=== PATIENT | male | born 1955 | race Caucasian/White ===

== ENCOUNTER → 2024-01-18 14:34 | Outpatient (BNVA) | payer MEDICARE, SELFPAY | PROVIDERS: PCP Nurse Practitioner Family; Referring Provider Nurse Practitioner Family; Visit Provider Student in an Organized Health Care Education/Training Program | DX: T84.54XA Infection and inflammatory reaction due to internal left knee prosthesis, initial encounter (principal) | CPT/HCPCS: 20610; 99203 ==

== ENCOUNTER 2024-01-18 15:21 | Outpatient (REF) | payer MEDICARE, SELFPAY ==
[2024-01-18 18:27] LABS: Clarity Cloudy; Source Synovial
[2024-01-18 18:28] LABS: Mononuclear Cells 15 %; Polynuclear Cells 85 %
== END 2024-01-18 15:22 | disposition home or self-care (01) ==
LOC: LBN 15:21
PROVIDERS: PCP Nurse Practitioner Family; Visit Provider Student in an Organized Health Care Education/Training Program
DX: T84.54XA Infection and inflammatory reaction due to internal left knee prosthesis, initial encounter (principal); Z96.652 Presence of left artificial knee joint; X58.XXXA Exposure to other specified factors, initial encounter
CPT/HCPCS: 87070; 87205; 89051

== ENCOUNTER → 2024-01-19 07:59 | Outpatient (BNVA) | payer MEDICARE, SELFPAY | PROVIDERS: PCP Nurse Practitioner Family; Referring Provider Nurse Practitioner Family; Visit Provider Student in an Organized Health Care Education/Training Program ==

== ENCOUNTER 2024-01-19 10:22 | Inpatient (IN) | payer MEDICARE, SELFPAY ==
[2024-01-19] VITALS (17 sets, daily range): BP systolic 114–184; BP diastolic 50–90; PULSE 63–87; RESP 15–20; TEMP 35.8–36.6; O2SAT 94–100; BMI 28.8
[2024-01-19] MEDS: Acetaminophen 500 MG TAB 1000 MG PO ×2 (10:48→21:09)
[2024-01-19] MEDS: Gabapentin 300 MG CAP PO ×2 (10:48→21:11)
[2024-01-19] MEDS: Celecoxib 200 MG CAP 400 MG PO (10:48)
[2024-01-19] MEDS: Lactated Ringers 1,000 ML 80 ML IV ×2 (10:58→18:20)
--- NOTE | 2024-01-19 11:23 | ANES.PREOP_ITS ---
General Info Date of Service Date Performed: 01/19/24 Height: 6 ft Weight: 96.5 kg Body Mass Index (BMI): 28.8 Surgical Procedure: Operation Date: 01/19/24 15:40 Proposed Procedure Side Surgeon p Total Knee hardware removal, spacer placement Left Js Michel MD Meds Allergies and Home Medications Allergies Allergy/AdvReac Type Severity Reaction Status Date / Time No Known Allergies Allergy Verified 01/19/24 10:43 Home Medication Medication Instructions Recorded Acetaminophen 650 mg RC PRN 11/21/12 ibuprofen 800 mg tablet 800 mg PO PRN 11/21/12 omeprazole magnesium 20 mg 20 mg PO DAILY 11/21/12 tablet,delayed release (Prilosec OTC) glucosamine sulfate 2KCl 1,000 mg 1,000 mg PO TID ##1 09/29/13 tablet Current Visit Medications: Current Medications Generic Name Dose Route Start Last Admin Trade Name Freq PRN Reason Stop Dose Admin Acetaminophen 1,000 mg 01/19/24 10:00 01/19/24 10:48 Acetaminophen 500 Mg Tab PO 01/19/24 16:00 1,000 mg PREOP JOSEPH Administration Celecoxib 400 mg 01/19/24 10:00 01/19/24 10:48 Celecoxib 200 Mg Cap PO 01/19/24 16:00 400 mg PREOP JOSEPH Administration Gabapentin 300 mg 01/19/24 10:00 01/19/24 10:48 Gabapentin 300 Mg Cap PO 01/19/24 16:00 300 mg PREOP JOSEPH Administration Ringer's Solution 1,000 mls @ 80 mls/hr 01/19/24 06:00 01/19/24 10:58 IV 02/18/24 23:59 80 mls/hr INFUSION JOSEPH Administration Cefazolin Sodium/Dextrose 2 gm in 50 mls @ 100 mls/hr 01/19/24 10:00 Ancef Duplex IVPB 01/19/24 16:00 PREOP JOSEPH Tranexamic Acid/Sodium Chloride 1,000 mg in 100 mls @ 600 mls/hr 01/19/24 10:00 IVPB 01/19/24 16:00 PREOP JOSEPH Tranexamic Acid/Sodium Chloride 1,000 mg in 100 mls @ 600 mls/hr 01/19/24 10:00 IVPB 01/19/24 16:00 TODAY JOSEPH IV Miscellaneous Supplies 1 each 01/19/24 06:00 Iv Access IV 02/18/24 23:59 DIRECTED [facility] Sodium Chloride 0 ml 01/19/24 06:00 Normal Saline Flush 10 Ml Syr IV 02/18/24 23:59 PRN PRN Sodium Chloride 0 ml 01/19/24 06:00 Normal Saline 10 Ml Vial 02/18/24 23:59 DIRECTED PRN Sterile Water 0 ml 01/19/24 06:00 Water,Injection,Sterile 10 Ml Vial 02/18/24 23:59 DIRECTED PRN Tobramycin Sulfate 7.2 gm 01/19/24 10:00 Tobramycin 1.2 Gm Vial 01/19/24 23:59 TODAY [facility] Vancomycin HCl 8,000 mg 01/19/24 10:00 Vancomycin 1000 Mg Vial 01/19/24 23:59 TODAY [facility] PFSH Active Problems Active Problems: Problem Status Onset Code 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 Alcoholic hepatitis K70.10 Medical History Medical History Neuropathy BPH (benign prostatic hyperplasia) Anemia Alcohol abuse Actinic keratosis Gastroesophageal reflux disease Surgical History Surgical History History of arthroscopic knee surgery History of carpal tunnel release History of prostate surgery Replacement of total knee joint (09/19/12) LEFT SIDE Tobacco Smoking/Tobacco Use Status: Former Tobacco Use Alcohol Alcohol Intake: current Alcohol intake frequency: 0-2 drinks per day Alcohol typ e: hard liquor Substance Use Substance use: Never Substance use type: does not use Details: Last ETOH 01/17 3-4 shots hard liquor Vital Signs and Lab Results Vital Signs Most Recent Vital Signs in EMR: Most Recent Vital Signs Temp Pulse Resp BP Pulse Ox 35.8 C L 87 16 135/69 97 01/19/24 10:29 01/19/24 10:29 01/19/24 10:29 01/19/24 11:03 01/19/24 10:29 Lab Results Blood Type / Crossmatch: No Data to Display Complete Blood Count: No Data to Display Complete Metabolic Panel: No Data to Display Liver Function Panel: No Data to Display Coagulation Panel: No Data to Display Cardiac Panel: No Data to Display Arterial Blood Gas: No Data to Display Venous Blood Gas: No Data to Display Pancreas Panel: No Data to Display Thyroid Panel: No Data to Display Infectious Disease: No Data to Display Blood Cultures: No Data to Display Toxicology Panel: No Data to Display Anesthesia Assessment and Plan Anesthesia History Personal History: No History of Anesthesia Complications Family History: No Family History of Anesthesia Complications Exercise Tolerance Exercise Tolerance: Metabolic Equivalents>4 Pertinent Negatives Pertinent Negatives: No Major Cardiovascular Symptoms or Complaints, No Major Pulmonary Symptoms or Complaints and No History of CVA/TIA Cardiac & Pulmonary Exam Cardiac Exam: Normal S1/S2 Heart Sounds Pulmonary Exam: Clear Bilateral Breath Sounds Implantable Cardiac Device Does patient have a Pacemaker or an ICD?: No Airway Exam Known Difficult Airway: No Mallampati Class: 2 Mouth Opening: Normal (> 3cm) Thyromental Distance: Greater than 3 cm Neck Range of Motion: Full ROM Neck Circumference: Normal Teeth Condition: Normal Dentition ASA Classification ASA Score: ASA 2 Emergency Case?: No NPO Status NPO Status: NPO Clears >2 hours, Solids >8 hours Anesthesia Plan Resuscitation Status: Full Code Anesthesia Technique: Spinal Anesthesia Airway Planned: Natural Airway Pain Management: Surgeon and patient request nerve block Monitors Used: Standard Monitors
--- NOTE | 2024-01-19 12:10 | W.ANESNERVE ---
Nerve Block Single Injection Procedure Date and Time Date Performed: 01/19/24 Procedure Start: 12:04 Location Where Procedure Performed Procedure Location: Day Surgery Unit Reason Performed: Postoperative Analgesia Requesting Provider: Js Michel Timeout Performed Timeout Performed: Yes Monitoring Used ECG, Blood Pressure, SpO2 and See EMR for corresponding vital signs Sterility Sterility: Hand Hygiene, Surgical Cap, Surgical Mask, Sterile Gloves, Sterile Drape/Sheet and Chlorhexidine Sedation Given During Procedure Sedation Given (Indicate Dose Given): Versed IV Dose:: 2 mg Patient Mental Status Patient Mental Status: Sedate with meaningful communication Nerve Block 1st Nerve Block: Laterality: Left Block Type: Adductor Canal Ultrasound Image Saved?: Yes Needle / Catheter Used: 100mm SonoPlex II Local Anesthetic Bolus (Indicate Dose Given): Lidocaine used for local infiltration of skin, Injected in 3-5ml increments after negative blood aspiration and Bupivacaine 0.25% Dose:: 15 ml Additives (Indicate Dose Given): None Ultrasound: Sterile probe cover and gel used Nerve Stimulator: Supplement to Ultrasound use and No twitch or parasthesia noted < 0.5 mA Paresthesia: None Procedure Tolerated: No Complications and Patient tolerated well Procedure Outcome: Successful Performed By: Tierra Galvez
[2024-01-19] MEDS: ceFAZolin 2 GM/50 ML BAG IVPB ×2 (14:08→23:26)
[2024-01-19] MEDS: TRANEXAMIC ACID/SOD. CHL. 1,000 MG/100 ML BAG 600 MG IVPB ×2 (14:28→16:12)
--- NOTE | 2024-01-19 16:30 | DI.RAD_ITS ---
Exam(s) XR KNEE LT 2V AP,LAT EXAM: XR KNEE LT 2V AP,LAT CLINICAL HISTORY: s/p TKA expalnt and spacer placement. TECHNIQUE: 2D digital imaging was performed of the left knee. Five images were obtained. AP, obliq ue and lateralAP, lateral and PA tunnel views were obtained. COMPARISON: CR XR KNEE COMPLETE MIN 4V LT from 01/18/2024 FINDINGS: BONES: No acute fracture is present. No bony destructive lesion is seen. JOINTS: There has been interval replacement of the tibial component of the left total knee replacemen t with a radiolucent spacer. There is also been placement of fully threaded screws in the distal fem ur and proximal tibia. No joint effusion is seen. No loose body. SOFT TISSUE: Postsurgical changes are seen in the soft tissues. Skin ceferino are present. IMPRESSION: Interval total knee revision. DATA REPOSITORY: RADIATION DOSE DELIVERED:
--- NOTE | 2024-01-19 16:49 | ROE_ITS ---
Date of service: 01/19/24 Time of Service: 14:30 Operative Note Operative Note DATE OF PROCEDURE: 01/19/24 PRE-OP DIAGNOSIS: Infected Left Total Knee Arthroplasty Patella Button Dissociation Arthrotomy rupture POST-OP DIAGNOSIS: same PROCEDURE: Explantation of Knee Arthroplasty - LEFT Irrigation and Debridement and Complete Synovectomy Placement of Low-Friction Antibiotic Spacer Application of Chavez Vacuum-Assisted Dressing SURGEON: Js Michel GLASS CURVATURE GAUGER: Chuck Donnelly ANESTHESIA TYPE: Spinal Refer to Anesthesia Record ESTIMATED BLOOD LOSS: 300 PATHOLOGY: none sent TOURNIQUET TIME: 0 Patient was transported to: PACU Patient's condition: stable Implants: Depuy Attune Size 7 CR Femoral Component Depuy Attune Size 7x14mm CR/RP Polyethylene Indications: Dwight is a 68-year-old who presented to the [facility] emergency department for acute on chronic left knee pain. He was diagnosed with dissociation of the patellar button along with a large effusion and elevated inflammatory markers. I saw him in the office the same day and aspirated gross purulence from the knee. Given these findings I recommend proceeding urgently to the operating room for explantation of the components and placement of antibiotic spacer. I reviewed the technical details. Discussed the nature of this treatment and the necessary time for antibiotic treatment. I also reviewed the risk to include bleeding, continued infection, need for repeat procedures, damage to soft tissues, wound healing difficulties, blood clot. Despite these risk, he elected to proceed. Findings: There was gross purulence throughout the knee. The cement was completely debonded from the metal implants. The patellar button was loose. There is an erosion in the distal aspect the quadricep from the loose patellar button. There is dense synovitis throughout. Procedure Description: Dwight was greeted in the preoperative holding area where the correct side was identified and marked. The consent was reviewed with the patient and signed. The history and physical was updated. All questions were answered. Preoperative mediacations were administered: Acetaminophen 1000mg, Celebrex 40 0mg, and Gabapentin 300mg. Dwight was taken back to the operating room. A spinal anesthestic was administered. The patient was placed into the supine position on the operating room table. Posts were placed for positioning during the procedure. All bony prominences were well padded. Prophylactic antibiotics in the form of Cefazolin were administered. The left leg was then prepped with Chloraprep and draped in a standard fashion with impervious stockinette. A second prep with Chloraprep was performed prior to application of Iodine impregnated skin protection. A timeout to confirm correct identity, side and site, procedure, allergies, anesthesia, and medical concerns was performed. With the knee in some flexion, a midline incision was made overlying the knee utilizing the previous incision. Full thickness skin flaps were raised once the extensor mechanism was encountered. These were raised medially and laterally. There is an obvious defect of the quadriceps repair in the arthrotomy with a de of purulent material. There is significant adhesions between the extensor apparatus and the overlying soft tissue. These planes were developed. Any bleeding was controlled with electrocautery. Medial and lateral skin flaps were raised to fully evaluate the extensor mechanism. The defect was quite obvious. It ended about the midportion of patella with maybe some slight diastases at that level but by the inferior portion of the patella there was no defect. The proximal extent went through the quadriceps split about alf. The patellar button was dissociated from the ce ment and was sitting in a superior medial position and actually had eroded into the undersurface of the distal quadriceps. Distal quadriceps was still attached to the patella patella was in a lateral base position. An aggressive complete synovectomy was then performed utilizing 2 Allis 2 Reginald clamps. This was taken from the superior portions of the wound through the medial and lateral gutters, working anteriorly as well. Rongeur was also utilized to assist with the far reaches of the synovectomy. The interface between the bone, cement, and metal was identified. The medial soft tissues over the tibia were elevated. The knee was brought into flexion and it was immediately evident that the femur was loose. I used a large osteotome to cut the post of the polyethylene and remove the polyethylene. An evaluation of the femur, there is fluid noted to be moving between the implant and the cement. Utilizing a bone tamp I was able to tap the femur out of place. As for the tibia, there seem to be some motion. However, it was not grossly loose as the femur. I utilized an oscillating saw to separate the cement from the implant. There is minimal resistance. Once this was completed I then used an osteotome and a mallet to remove the tibial implant. No cement was adherent to the implant itself. Utilizing a small straight osteotome I created small cruciate steen within the cement to freed up from the underlying bone. The cement was removed. The distal aspect of the cement was penetrated with the osteotome and was removed in pieces so I had access to the canal. All the cement was removed from the surface of the tibia. There is a significant of reactive bone of the tibia which was also rongeured and playing with the distal tibia. Synovium from the posterior aspect of the knee was removed. The cement was removed from the surface of the distal femur as well. There is noted to be no significant bone loss on the femur. However, there was a cavity seen over the lateral aspect of the tibial plateau. All contents was cavity were debrided. I then reamed the canals up to 14 mm. Cultures were taken from the canals. On the back table, antibiotic dowels for the canals was prepared. This was done utilizing 1 batch of medium discuss the cement along with 2 g of vancomycin and 2.4 g of tobramycin. A small amount of methylene blue was also added. This was mixed on the back table without backing pressurization. It was rolled into appropriately sized dowels based on the reaming process over a Steinmann pin. While this was being prepared, an aggressive debridement is performed of all the bony surfaces. I make sure had complete evaluation of the entire bony surface. Any soft tissue adjacent to the bone was removed. This was done posteriorly as well. I trialed a size 7 femur with a 7 x 14 polyethylene. This provided appropriate stability and fit. These 2 implants were then open. This would be the primary component of the low friction spacer. After the debridement was performed and the canals were thoroughly irrigated and dried the knee was brought back into extension where I then treated it with Betadine solution for at least 3 minutes. During this time I injected the deep tissues with a mixture of ropivacaine, epinephrine, clonidine and ketorolac. After 3 minutes I irrigated the knee with saline and brought the knee back into flexion where I completed the periarticular injection posteriorly. Cement was then opened on the back table. Once again utilizing 2 g of vancomycin and 2.4 g of tobramycin per batch of cement, 2 batches the knee discussed the cement were prepared on the back table. These were mixed by hand without vacuum assistance. The dowels were placed into the canals. Cement was then placed onto the surface of the tibia and the rotating platform tibial component was placed onto the surface of the tibia. This was manually pushed onto the surface and excess cement was removed. The knee was kept in some flexion and cement was placed on the cut surface of the femur. The femoral component was inserted in position. The knee was then brought into extension to allow the cement to cure. Excess cement was removed. The knee was once again irrigated with Betadine solution followed by saline. Once the cement cured the extensor mechanism was closed with #2 FiberWire in an interrupted fashion. Given there is some diastases of this wound I did close the previously torn portion with a pants over vest technique in order to get tendinous material next tendinous material and utilize the false tendon to help reinforce the repair. The superficial tissues were once again irrigated with saline. The deep tissues were closed with an antibacterial 0 and 2-0 Vicryl. The skin was closed with ceferino. A chavez vacuum-assisted dressing was then applied to assist with wound healing. A CryoCuff was applied. Dwight was transferred to the hospital bed without difficulty and suffering no apparent complication. wDight has a gaurded prognosis. Aspirin 81mg BID will be used for DVT prophylaxis. He will be placed on vancomycin and cefazolin for empiric treatment of his infection as we await final cultures.
[2024-01-19 18:43] LABS: BUN 16 mg/dL (7-18); CREATININE 0.7 mg/dL (0.70-1.30); Estimated GFR 100.99 (mL/min/1.73m2)
--- NOTE | 2024-01-19 21:05 | DI.VRAD_ITS ---
PROCEDURE INFORMATION: Exam: XR Left Knee Exam date and time: 01/19/2024 8:17 PM Age: 68 years old Clinical indication: Other: S/P tka expalnt and spacer placement TECHNIQUE: Imaging protocol: Radiologic exam of the left knee. Views: 1 or 2 views. COMPARISON: CR XR KNEE COMPLETE MIN 4V LT 01/18/2024 8:32 AM FINDINGS: Tubes, catheters and devices: Surgical changes of left total knee arthroplasty, with fully threaded retention screws within the proximal tibia and femur and new radiolucent proximal tibial spacer. Bones/joints: No acute fracture or dislocation. Soft tissues: Anterior skin ceferino. IMPRESSION: No acute fracture or dislocation. Dictated and Authenticated by: Guido Ulrich MD. Ordering:ALYCE Weinstein MD
[2024-01-19] MEDS: VANCOMYCIN 1,500 MG in Normal Saline 250 ML 166.667 MG IVPB (21:12)
[2024-01-19] MEDS: Normal Saline Flush 10 ML SYR IV (21:17)
[2024-01-20 00:13] VITALS: BP 129/64; PULSE 74; RESP 20; TEMP 36.6; O2SAT 99
[2024-01-20 03:56] VITALS: BP 154/77; PULSE 74; RESP 20; TEMP 36.4; O2SAT 97
[2024-01-20 07:22] LABS: HCT 32.8 % (40.0-50.0); HGB 10.6 g/dL (13.5-17.5); MCH 31.8 pg (27.0-33.0); MCHC 32.3 % (32.0-36.0); MCV 99 fL (80-95); MPV 9.5 fL (8.0-11.0); Platelet Count 239 10^3/uL (130-400); RBC 3.33 10^6/uL (4.36-5.78); RDW 12.9 % (11.8-14.1); RDW-SD 46.7 fL; WBC 6.89 10^3/uL (4.4-10.8)
[2024-01-20 07:34] LABS: Anion Gap 5.7 mmol/L (3-11); BUN 22 mg/dL (7-18); C-Reactive Protein 6.71 mg/dL (<or=0.5); CO2 28.3 mmol/L (21.0-32.0); CREATININE 0.8 mg/dL (0.70-1.30); Chloride 105 mmol/L (98-107); Glucose 156 mg/dL (74-106); Potassium 4.1 mmol/L (3.5-5.1); Sodium 139 mmol/L (136-145)
[2024-01-20 08:00] VITALS: BP 160/99; PULSE 78; RESP 16; TEMP 37.1; O2SAT 98
[2024-01-20] MEDS: Acetaminophen 500 MG TAB 1000 MG PO ×3 (08:24→21:08)
[2024-01-20] MEDS: ceFAZolin 2 GM/50 ML BAG IVPB ×2 (08:24→16:04)
[2024-01-20] MEDS: Pantoprazole 40 MG TABCR PO (08:24)
[2024-01-20] MEDS: Aspirin E.C. 81 MG TABEC PO ×2 (08:24→21:08)
--- NOTE | 2024-01-20 08:29 | W.ANESPOSTOP ---
Postoperative Evaluation Date, Time and Location Date Performed: 01/20/24 Time Performed: 08:29 Patient Location: Med/Surg Vital Signs Most Recent Imported Vital Signs: Most Recent Vital Signs Temp Pulse Resp BP Pulse Ox 37.1 C 78 16 160/99 H 98 01/20/24 08:00 01/20/24 08:00 01/20/24 08:00 01/20/24 08:00 01/20/24 08:00 Pain Score Most Recent Pain Score: Most Recent Pain Score Pain Level 3 01/20/24 08:00 Assessment Mental Status: Awake (Alert & Oriented to Patient Baseline) Airway and Respiratory Function: Patent airway with normal (patient baseline) respiratory exam Cardiovascular Function: Hemodynamically Stable Hydration Status: Adequately Hydrated Nausea & Vomiting: No Nausea or Vomiting Pain: Pt. Denies Any Pain Peripheral Nerve Block: Regional nerve block not resolved at time of post operative discharge
[2024-01-20] MEDS: oxyCODONE 5 MG TAB PO ×2 (08:31→14:04)
--- NOTE | 2024-01-20 09:03 | INITIAL_ITS ---
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 He has 2 sons and 3 grandchildren and many other local family members and friends. He drives and is fully independent with his ADL's/IADL's at baseline. Town of Residence: [place] Resides with: Spouse Significant Other/Family: Local Natural Supports: Minh Potter Employment Status: Employed Instrumental Activities of Daily Living (ADLs): Independent Medications Medication Management: No Issues/Barriers identified Physical Functioning/Mobility Assistive Device: None Advance Directives Advance Directives: Do you have an Advance Directive: N 01/19/24 11:23 AD On File at [facility]: N 09/29/13 09:44 Date Asked 01/19/24 01/19/24 11:23 AD Date Reviewed COLST On File at [facility] COLST Date Scanned Code Status Resuscitation Status Full Code Portal Pt does not currently have a portal and education provided: No Insurance Coverage/Financial Issues Insurance: Medicare ACO Member: No Financial Issues: none identified Care Team Visit Care Team Role Provider Type Dominga Silver Primary Care Provider NURSE PRACTITIONER InPatient Anmol Hahn Other Providers OTHER Js Michel MD Admit Provider [facility] STAFF PHYSICIAN Attending Provider Discharge Potential Discharge Needs: Other (Home IV ABX, awaiting results ) Anticipated Barriers to Discharge: None Identified Patient/Family Education Needs: Review discharge instructions, discuss Ask Me Three Transportation: Private vehicle Plan: Mitchell will discharge home via private vehicle with family with a plan for outpatient follow up when medically ready. Cultures are pending, LT IV ABX with new [facility] services is anticipated, course is unclear at this time. CM will continue to follow. PFSH All Active Problems Infection of prosthetic left knee joint (Acute) Alcoholic hepatitis (Acute) Medical History Neuropathy BPH (benign prostatic hyperplasia) Anemia Alcohol abuse Actinic keratosis Gastroesophageal reflux disease Surgical History History of arthroscopic knee surgery History of carpal tunnel release History of prostate surgery Replacement of total knee joint (09/19/12) LEFT SIDE Social History Smoking/Tobacco Use Status: Former Tobacco Use Quit Date: 08/23/03 Smoking risk assessment performed?: Yes Alcohol Intake: current Alcohol Intake frequency: 0-2 drinks per day Alcohol type: hard liquor Drug use: Never Substance use type: does not use Details: Last ETOH 01/17 3-4 shots hard liquor Housing: house Do you feel safe at home: Yes Do you feel safe in your relationship?: Yes SDOH(Care Management) Screening Will the Patient Participate in the Screening?: Yes Do you worry about having a steady place to live?: no Problems where you live: no known problems In the past 12 months, have you had to go without electric, gas, oil or water in your home?: no Have you or anyone in your house had to go without enough food to eat?: no Has lack of transportation kept you from medical appointments or from doing things needed for daily living?: no Has anyone in your support network made you feel unsafe for any reason?: no
--- NOTE | 2024-01-20 09:54 | PT.INIE ---
PT Notes Visit Reasons: Total knee infection Physical Therapy Inpatient Initial Evaluation Date: 01/20/2024 Referring Doctor: Js Michel MD PT Orders: PT CONSULT: S/P Ortho Surgery Precautions: Fall. Standard. WBAT on L LE. Patient Profile/Admitting Diagnosis: Mitchell is a 68-year-old male with diagnosis of total knee arthroplasty joint infection, patellar button dissociation, and arthrotomy rupture. He is status post explantation of left BKA prosthesis, placement of low fraction antibiotic spacer, and application of chavez vacuum assisted dressing on postoperative day 1. PMHX: All Active Problems (Updated 01/18/24 @ 15:45 by Js Michel MD) Infection of prosthetic left knee joint (Acute) Alcoholic hepatitis (Acute) Medical History Neuropathy BPH (benign prostatic hyperplasia) Anemia Alcohol abuse Actinic keratosis Gastroesophageal reflux disease Surgical History History of arthroscopic knee surgery History of carpal tunnel release History of prostate surgery Replacement of total knee joint (09/19/12) LEFT SIDE Social History/Home Situation: Lives with in a private home with 4-5 steps to enter. 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 Equipment Owned/DME: FWW, bilateral axillary cruthces, SPC Subjective: Reported 5/10 pain in L knee. Added that Nurse Salma has already been in to give him his pain medication. Agreeable to getting out of bed and tryng out knee immobilizer. Objective: General Observation: Resting in bed. Julio wraps to left LE. Cryocuff to left knee. TEDS to R leg/foot. Mental Status: Alert and oriented as to person, place, time, and purpose. Able to pay attention, focus, and respond appropriately. Pain: 5/10 in the L knee Vital Signs: Closely monitored by nursing staff ROM: Right Lower Extremity: Hip flexion WFL. Hip abduction WFL. Knee flexion WFL. Ankle dorsiflexion WFL. Ankle plantarflexion WFL. Left Lower Extremity: Hip flexion allows 90 degrees. Hip abduction WFL. Knee flexion NT, patient on knee imoobilizer. Knee extension about -20 degrees in standing. Ankle dorsiflexion WFL. Ankle plantarflexion WFL. Strength: Right Lower Extremity: Hip flexors 4/5. Hip abductors 4/5. Knee flexors 4/5. Knee extensors 4/5. Ankle dorsiflexors 4/5. Ankle plantarflexors 4/5. Left Lower Extremity: Hip flexors 3-/5. Hip abductors 4-/5. Knee flexors 3-/5. Knee extensors 3-/5. Ankle dorsiflexors 4/5. Ankle plantarflexors 4/5. Bed Mobility/Transfers: Minimal cueing provided for use of B hands as needed for support, movement sequence, AD management, and posture to reduce fall risk and minimize pain report Supine to sit minimal assist to left LE Sit to stand contact-guard assist using FWW Stand to sit contact-guard assist using FWW Bed to reclining chair contact-guard assist using FWW Gait: Facilitated safe and correct performance of level surface ambulation covering a distance 100 feet using front wheeled walker with step to gait pattern requiring contact-guard assist and wheelchair follow from PT for safety. Step-to gait pattern, Decreased terminal knee extension during L midstance but no LOB nor report of increased pain. Knee immobilizer provided a sense of security for patient. Balance: Static Sitting: Normal Dynamic Sitting: Good Static Standing: Fair Dynamic Standing: Fair Special Tests: Mobility Limitations Standardized Measure [facility] AM-PAC 6 clicks Basic Mobility Inpatient Short Form: Raw Score: 19 CMS Score: 42% deficit Informed Consent/Education: Patient was instructed in purpose of PT consult and plan of care. Agreeable to proceed with established PT POC to achieve personal goals. Assessment: Required assistance with moving L LE onto edge of bed for supine to to sit. [place] more secure with knee immobilizer on. Unable to fully extend knee during midstance on L. requires the use of FWW for all mobility ADL performance to maximize indepdence and reduce fall risk. Patient presents with clinical signs and symptoms consistent with current/admitting diagnoses that have resulted to mobility limitations, gait instability, generalized weakness, and overall ADL decline as demonstrated by the following impairment level findings: 1. Decreased strength to L hip and knee major muscle groups 2. Impaired sitting/standing balance 3. Impaired activity tolerance 4. Limitation of joint range of motion in extension/flexion Impairments are contributing to the following functional limitations: 1. Decline in bed mobility skills 2. Decline in transfer skills 3. Difficulty with ambulation without assistive device and physical assistance 4. Increased completion time for mobility ADL performance 5. Increased risk for falls 6. Difficulty with managing steps alone safely Patient is assessed as a 46538 moderate complexity based on the following: History: 68-year-old malw with past medical history as indicated above Examination: Demonstrable impairment in strength, balance, and mobility level with underlying impairments and functional limitations as exhibited above as well as deficit score of 42% utilizing the [facility] Mobility Inpatient Short Form Presentation: Evolving Decision Makin moderate complexity Goals: Goals X1 week 1. Supine-Sit independent 2. Sit-Supine independent 3. Sit-Stand independent 4. Stand-Sit independent with FWW 5. Bed-Chair independent with FWW 6. Chair-Bed independent with FWW 7. Independent gait on level surface with use of FWW for at least 150 feet without report of pain nor dyspnea 8. Independent stair negotiation while holding onto B rails for at least 5 steps without report of pain nor dyspnea 9. Independent with home exercise program 10. Good static and dynamic standing balance/tolerance Plan of Care/Treatment Plan: 1-2x/day, 7 days/week x 1 week. Plan of care has been reviewed with the TUBE BENDING MACHINE OPERATOR providing the service under Physical Therapy direction. Initiate Physical Therapy intervention for pain management as needed, strengthening, bed mobility, transfers, gait, stairs, balance training, and use of assistive device. --Educate and train on HEP, train for stairs, and work on increasing safety of ambulation using FWW and knee immobilizer to L. DISCHARGE RECOMMENDATIONS: [] Home with no services [] [] Home with services [specify] [X home when medically cleared by orthopedic surgeon. Recommend outpatient PT services in order to optimize functional mobility outcomes and facilitate return to independent community ambulation without an assistive device. [] Home with outpatient PT. [] SNF for continued rehabilitation [] [] [facility] [] [] SNF versus LTC based on ability to participate and progress [] TREATMENT CODE/TIME: 9716 2 x 20 minutes for 1 unit, 9753 0 x 18 minutes for 1 unit (9:13?9: 51). Thank you for the opportunity to participate in the care of this patient. Amber Payne PT, DPT, CLT [facility] [place], [place]
[2024-01-20] MEDS: VANCOMYCIN/WATER (PEG) 1.5 GM/300 ML BAG IVPB (09:59)
[2024-01-20 10:11] LABS: Vancomycin, Random 9.1 ug/mL
[2024-01-20 11:25] VITALS: BP 166/90; PULSE 80; RESP 16; TEMP 37; O2SAT 98
[2024-01-20] MEDS: diazePAM 5 MG TAB PO (12:58)
[2024-01-20 13:00] LABS: Lab Add On Test DONE
[2024-01-20 13:21] LABS: Hemoglobin A1C 5.5 % (<5.7)
--- NOTE | 2024-01-20 14:02 | CHAPLAIN ---
Mitchell was sitting up in the chair, with his leg, talking with his visitor. He said he's frustrated that his knee is infected, after 11 years, and he needs to be out haying. He was talking about how he can't figure out how he got an infection, he hasn't even had anything worth putting a Bandaid on, but Dr. Michel had explained to him that it could be very minor scratch or sore that let the infection in.
--- NOTE | 2024-01-20 15:32 | PT.INTREAT ---
PT Notes Visit Reasons: Total knee infection Date: 01/20/24 PRECAUTIONS: Fall. Standard. WBAT on L LE. SUBJECTIVE: Pt in recliner when approached for therapy this afternoon, pt reports he has not been medicated yet so he is not sure if he could tolerate gait training, pt nurse Salma informed about pt pain meds and reports that the pt just recently had Valium so was not given the oxy, Nurse said window for oxy will become available in half an hour so will medicate then, pt agreed to participate with seated activity and will perform gait training an hour after the pain meds has taken effect. OBJECTIVE: ?IV line on right antecubital, left knee immobilize in place? PAIN: initially fearfull with left LE movements, reports pain is manageable an hour after meds has taken effect. VITALS: ?Monitored by nursing? Therapeutic Activities 50415: Direct one-on-one instruction in dynamic activities to improve functional performance. ?? BED MOBILITY/TRANSFERS? Rolling L/R: not performed Supine-sit: ? not performed? Sit-supine: ? not performed? Sit-stand: ? CGA ? Stand-sit: ??SBA ? Bed-Chair:? CGA ? Chair-bed: CGA Provided skilled cues and instruction on performance and technique throughout. Gait Training 81501: Direct one-on-one instruction and skilled instruction in: Employing an assistive device Modified weight-bearing status Movement sequencing Turning and movement with proper form Provided verbal cues for equipment management and technique Provided instruction in gait pattern Patient education regarding pacing and breathing techniques to maximize activity tolerance? GAIT? Assistive Device: ?? ?FWW ? Weight bearing: WBAT Assist: ?CGA ? Distance:?? ? 100'? Deviation: ? ?Antalgic gait, stoop forward posture ? Therapeutic Exercises 47686: Direct one-on-one instruction in therapeutic exercises to develop strength, endurance, range of motion and flexibility. Exercises Access Code: [email or web address] URL: [email or web address] Date: 01/20/2024 Prepared by: Cali Payne Exercises - Gluteal Sets - 1 x daily - 7 x weekly - 1 sets - 10 reps - 5 hold - Supine Heel Slide - 1 x daily - 7 x weekly - 1 sets - 10 reps - 5 hold - Supine Ankle Pumps - 1 x daily - 7 x weekly - 1 sets - 10 reps - 5 hold - Seated March - 1 x daily - 7 x weekly - 1 sets - 10 reps - 5 hold - Seated Long Arc Quad - 1 x daily - 7 x weekly - 1 sets - 10 reps - 5 hold? Provided skilled instruction in proper exercise performance Provided skilled manual cues to facilitate proper muscle recruitment and/or form: ? ASSESSMENT:? Pt initial session pt able to participate with seated therapeutic procedures with pt education for leg lift utilization during LLE movement, pt able to tolerate gait training on second session with pt showing safe choices during room transitions. PLAN: Continue with balance training, global strengthening and general conditioning for improved safety, mobility and activity tolerance until pt is ready for DC. TREATMENT CODE/TIME: 83480l9 15mins, 47466d8 15mins (2:10-2:35/ 3:10-3:35 pm)
[2024-01-20 16:19] VITALS: BP 154/87; PULSE 82; RESP 16; TEMP 36.3; O2SAT 99
--- NOTE | 2024-01-20 19:59 | PGE_ITS ---
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 He is now status post explantation of the knee replacement. Overall he seems to be doing well. Unfortunately we do not have any bacteria as a primary culprit this point. Even though there was gross purulence there is been no growth to the lab as of yet. His blood cultures are also negative. His C-reactive protein is trending down. I would recommend at this point moving forward with a PICC line in anticipation of home antibiotics. I am hopeful that we may be able to send him home with ceftriaxone as her primary antibiotic. I will need to wait any culture finalization. We will trend CRP. I will go ahead and try to make arrangements for home antibiotics. Qualifiers: Encounter type: initial encounter Qualified Code(s): T84.54XA - Infection and inflammatory reaction due to internal left knee prosthesis, initial encounter (2) Alcohol abuse: Assessment and plan: He does admit to drinking on a daily basis. He has had some hypertension but otherwise no other signs. We will continue to monitor for any alcohol wit hdrawal. I will add Valium to help control pain but also potentially help out with any potential early withdrawal symptoms. Subjective Subjective Interval history since last seen: Dwight reports he is doing well. He had some pain in the leg which has responded to medications. He has not been out of bed yet. No fevers or chills. No chest pain or shortness of breath. No growth to date on the cultures. Exam Narrative Exam Narrative: Sitting up in the hospital bed. No acute distress. Alert and orient x 3. Dressing of the left knee is clean dry and intact. Limited knee extension pote ntial due to pain. Sensation intact to light touch of the deep and superficial peroneal nerve and tibial nerve. Objective Last Vital Signs Temp 36.3 C L 01/20/24 16:19 Pulse 82 01/20/24 16:19 Resp 16 01/20/24 16:19 BP 154/87 H 01/20/24 16:19 Pulse Ox 99 01/20/24 16:19 Laboratory Results - last 24 hr 01/20/24 01/20/24 06:35 13:00 WBC 6.89 RBC 3.33 L Hgb 10.6 L Hct 32.8 L MCV 99 H MCH 31.8 MCHC 32.3 RDW 12.9 Plt Count 239 MPV 9.5 Sodium 139 Potassium 4.1 Chloride 105 Carbon Dioxide 28.3 Anion Gap 5.7 BUN 22 H Creatinine 0.8 Est GFR (CKD-EPI 2020) 97.00 Glucose 156 H Hemoglobin A1c 5.5 Calcium 8.0 L C-Reactive Protein 6.71 H Random Vancomycin 9.1 Add-On Test Request DONE Time Spent with Patient Time Spent with Patient: 25-34 minutes Time was spent: preparing to see the patient(eg.review tests), obtaining and/or reviewing separately otained hiistory, counseling the patient and care coordination
[2024-01-20 20:52] VITALS: BP 165/85; PULSE 70; RESP 16; TEMP 36.5; O2SAT 94
[2024-01-20] MEDS: Gabapentin 300 MG CAP PO (21:08)
--- NOTE | 2024-01-20 22:00 | DI.RAD_ITS ---
Exam(s) XR PORTABLE CHEST AP POST LINE EXAM: XR PORTABLE CHEST AP POST LINE CLINICAL HISTORY: PICC LINE PLACEMENT TECHNIQUE: 2D digital imaging was performed of the chest. One image was obtained. An AP view was ob tained. COMPARISON: No exams were available for comparison FINDINGS: MEDIASTINUM: Normal. HEART: Normal. PULMONARY VASCULATURE: Mild pulmonary venous congestion. LUNGS: No focal consolidating infiltrates. PLEURAL SPACE: No pleural effusion or pneumothorax. BONE:Within normal limits for the patient's age. There are old bilateral healed rib fracture deformit ies. Degenerative changes are seen in the right acromioclavicular and glenohumeral joints. OTHER FINDINGS:There is a right PICC line. The tip is in the superior vena cava. IMPRESSION: 1. Mild pulmonary venous congestion. No focal consolidating infiltrates. 2. Tip of the right PICC line is seen in good position in the distal superior vena cava. DATA REPOSITORY: RADIATION DOSE DELIVERED:
--- NOTE | 2024-01-20 23:23 | DI.VRAD_ITS ---
Addendum created by Kathy Bae MD on 01/20/2024 11:22:57 PM EDT: Correction of a typographical error as follows: IMPRESSION: Right upper extremity PICC tip projects over distal SVC, satisfactory position. Please note the radiodense distal guidewire may be still present within the PICC. Initial report created on 01/20/2024 11:22:36 PM EDT: PROCEDURE INFORMATION: Exam: XR Chest Exam date and time: 01/20/2024 22:34 Age: 68 years old Clinical indication: Device placement; Picc; Additional info: Picc line placement TECHNIQUE: Imaging protocol: Radiologic exam of the chest. Views: 1 view. COMPARISON: No relevant prior studies available. FINDINGS: Lungs: No consolidation. Pleural spaces: No pleural effusion. No pneumothorax. Heart/Mediastinum: Mild cardiomegaly and mild vascular congestion. Bones/joints: Chronic rib deformities. Other findings: Are non PICC tip projects over distal SVC, satisfactory position. Please note the radiodense distal guidewire may be still present within the PICC. IMPRESSION: Are non PICC tip projects over distal SVC, satisfactory position. Please note the radiodense distal guidewire may be still present within the PICC. Dictated and Authenticated by: Kathy Bae MD. Ordering:ALYCE Weinstein MD
[2024-01-21] MEDS: ceFAZolin 2 GM/50 ML BAG IVPB ×3 (00:04→16:43)
[2024-01-21] MEDS: VANCOMYCIN/WATER (PEG) 1.25 GM/250 ML BAG IVPB ×2 (00:42→12:24)
[2024-01-21 07:28] VITALS: BP 185/91; PULSE 92; RESP 20; TEMP 36.5; O2SAT 98
[2024-01-21] MEDS: Docusate Sodium 100 MG CAP PO (07:44)
[2024-01-21] MEDS: Aspirin E.C. 81 MG TABEC PO ×2 (07:44→19:38)
[2024-01-21] MEDS: Acetaminophen 500 MG TAB 1000 MG PO ×3 (07:44→19:38)
[2024-01-21] MEDS: Pantoprazole 40 MG TABCR PO (07:44)
[2024-01-21] MEDS: oxyCODONE 5 MG TAB PO ×2 (08:55→12:30)
--- NOTE | 2024-01-21 10:25 | W.PM.PROGNOT ---
Date of Service Date of service: 01/21/24 Time of Service: 10:15 Assessment and Plan Assessment and plan (1) Alcoholic hepatitis: Status: Acute Assessment and plan: Currently not scoring. Continue to follow with alcohol withdrawal algorithm. (2) Infection of prosthetic left knee joint: Status: Acute Assessment and plan: Dwight is now postop day #2 status post explantation of left knee replacement. He has been receiving broad-spectrum antibiotics in the form of vancomycin and cefazolin. His cultures so far negative. This is quite surprising given the purulent nature of the fluid. However, this would argue against staph and strep as being the causative organism. He has no risk factors for resistant organisms. Therefore, I will consider transitioning to ceftriaxone 2 g daily. I will have to continue to follow the cultures although my suspicion is that he is going to have gram-positive anaerobes which are usually you ubiquitously sensitive. I will work on arranging home health antibiotics. Once I have confirmation that he may obtain his antibiotics at home then we can discharge to home. I also had further discussions about the use of knee immobilizer. It is not essential. However, it will help support the knee, particular given that he had a chronic arthrotomy rupture. He is frustrated by the lack of mobility and therefore I do think it is reasonable to work with physical therapy without the knee immobilizer. However, then he expresses concerns about not using the knee immobilizer. I reviewed all this with him. I think is reasonable to take it off to get in and out of the truck or try to get on the tractor. However, he should try to use it when he can with mobilization to help support the repair that was performed. Qualifiers: Encounter type: initial encounter Qualified Code(s): T84.54XA - Infection and inflammatory reaction due to internal left knee prosthesis, initial encounter Subjective Subjective Interval history since last seen: Dwight reports be doing well. He was able to ambulate with physical therapy. He still is having a good bit of pain but seems to be responsive medications. I checked with the lab this morning and so far there is no specific growth to date. His last CRP had improved. He denies fevers or chills. He has been using the knee immobilizer for ambulation. PICC line placed yesterday. Blood cultures negative. Exam Narrative Exam Narrative: Sitting up in the chair. No acute distress. Alert and orient x 3 peer Left knee dressing is clean dry and intact with a small amount of dried sanguinous discharge. Moderate swelling seen about the knee and the leg. No distal erythema. Intact ankle dorsiflexion, plantarflexion, great toe extension and flexion. Sensation intact to light touch over the deep and superficial peroneal nerve and tibial nerve. Objective Last Vital Signs Temp 36.5 C 01/21/24 07:28 Pulse 92 H 01/21/24 07:28 Resp 20 01/21/24 07:28 BP 185/91 H 01/21/24 07:28 Pulse Ox 98 01/21/24 07:28 Laboratory Results - last 24 hr 01/20/24 01/20/24 06:35 13:00 Hemoglobin A1c 5.5 Random Vancomycin 9.1 Add-On Test Request DONE Time Spent with Patient Time Spent with Patient: 35-49 minutes Time was spent: obtaining and/or reviewing separately otained hiistory, referring, communicating with other health progressive care manager, indepentently interpreting results, counseling the patient and care coordination
[2024-01-21 11:42] VITALS: BP 167/91; PULSE 86; RESP 18; TEMP 36.8; O2SAT 100
--- NOTE | 2024-01-21 13:15 | PT.INTREAT ---
PT Notes Visit Reasons: Total knee infection Physical Therapy Inpatient treatment Note Date: 01/21/2024 PRECAUTIONS: Fall. Standard. WBAT on L LE. SUBJECTIVE: Gaining confidence with moving about. Anxious about trying out waling and stairs without the knee immobilizer, agreed to do it this afternoon. OBJECTIVE: ?IV line on right antecubital, left knee immobilize in place? PAIN: 3-10, premedicated by Nurse Carlos mcnair this morning VITALS: ?Closely monitored Monitored by nursing? BED MOBILITY/TRANSFERS: Minimal cueing provided for use of B hands as needed for support, movement sequence, AD management, and posture to reduce fall risk and minimize pain report ? Sit-stand: ? supervision? Stand-sit: ??supervision?with FWW and knee immobilizer on? Bed-Chair:?supervision?with FWW and knee immobilizer on ? Chair-bed: supervision with FWW and knee immobilizer on ? GAIT? Assistive Device: FWW + knee immobilizer on L ? Weight bearing: WBAT Assist: ?contact guard assist ? Distance:??200 feet; in the afternoon covered same distance WITHOUT knee immobilizer ? Deviation: ?Gait continues to be antalgic, favors L LE but no buckling nor LOB, unable to actively terminally rotate knee into extension ? STAIRS: Up and down 6 x 4-inch steps and 4 x 6-inchs teps while hlding onto B rails for support. Also was able to do same with hand on one rail and then the other hand with single-point cane. Able to do same WITHOUT knee immobilizer for the afternoon session with report of more discomfort ? PLAN: Continue with balance training, global strengthening and general conditioning for improved safety, mobility and activity tolerance until pt is ready for DC. D/C PLAN: Home when medically cleared by orthopedic surgeon. Recommend outpatient PT services in order to optimize functional mobility outcomes and facilitate return to independent community ambulation without an assistive device. TREATMENT CODE/TIME: Session [id number] x 25 minutes for 2 units (9:25-9:50) Session [id number] x 41 minutes for 3 units (13:15-13:33 and 15:40-16:03)
--- NOTE | 2024-01-21 15:00 | PDOC.CMPRO ---
Date of service: 01/21/24 Time of Service: 15:00 Care Management Progress Note Progress Note Text Progress Note Text: S/O: Mitchell is planning on discharging home tomorrow after he finishes his IV ABX. He is transitioning to IV ceftriaxone 2 g daily and will need to have a dose through his PICC line before he discharge, per [facility] guidelines. [facility] guarantees delivery of medication and supplies sometime tomorrow. [facility] RN will provide teaching on Wednesday. A: 68 year old male admitted to [facility] on 01/19/24 with Total Knee Infection Discharge Anticipated Barriers to Discharge: None Identified Patient/Family Education Needs: Review discharge instructions, discuss Ask Me Three Transportation: Private vehicle Plan: Discharge home via private vehicle with family is planned for Wednesday after IV Ceftriaxone dose is given. Must be given before patient discharges in order for [facility] to deliver medication. New IV ABX therapy coordinated through [facility]. [facility] is ordered, services are confirmed with [facility]. Follow up with Dr. Michel as an outpatient. SDOH(Care Management) Screening Will the Patient Participate in the Screening?: Yes Do you worry about having a steady place to live?: no Problems where you live: no known problems In the past 12 months, have you had to go without electric, gas, oil or water in your home?: no Have you or anyone in your house had to go without enough food to eat?: no Has lack of transportation kept you from medical appointments or from doing things needed for daily living?: no Has anyone in your support network made you feel unsafe for any reason?: no
[2024-01-21 15:32] VITALS: BP 139/77; PULSE 88; RESP 20; TEMP 36.7; O2SAT 98
[2024-01-21] MEDS: Lactobacillus Acidophilus CAP 1 CAP PO (19:37)
[2024-01-21] MEDS: Gabapentin 300 MG CAP PO (19:39)
[2024-01-21 19:41] VITALS: BP 151/83; PULSE 87; RESP 16; TEMP 36.2; O2SAT 99
[2024-01-21 23:59] VITALS: BP 171/78; PULSE 78; RESP 20; TEMP 36.3; O2SAT 96
[2024-01-22] MEDS: VANCOMYCIN/WATER (PEG) 1.25 GM/250 ML BAG IVPB (00:27)
[2024-01-22 00:45] VITALS: BP 155/79; PULSE 81; RESP 18; TEMP 36.3; O2SAT 98
--- NOTE | 2024-01-22 07:25 | W.PM.DS.N ---
Date of service: 01/22/24 Time of Service: 10:00 DS: Diagnosis Discharge Diagnosis (1) Alcoholic hepatitis: Status: Acute (2) Infection of prosthetic left knee joint: Status: Acute Discharge Plan Disposition Patient Disposition: Home W/Home Health Services Condition: Improving Discharge Details Reason For Visit: Total knee infection Admit Date/Time: 01/19/24 10:22 Admit Provider: Js Michel Attending Provider: Js Michel Primary Care Provider: Dominga Silver [facility] Hospital Course Hospital Course: Dwight was admitted for an infection of his left prosthetic knee. He was taken to surgery on the day admission for explantation of the hardware and initiation of IV antibiotics along with an antibiotic spacer placement. He tolerated this procedure well. He was followed in the hospital without notable complication. He did have significant pain which was controlled with his oral medications. A PICC line was placed without difficulty for long-term infusion. Home Meds and New Rx's Prescriptions: New celecoxib 200 mg capsule 200 mg PO BID PRN (Reason: pain) Qty: 60 1RF aspirin 81 mg tablet,delayed release (DR/EC) 81 mg PO BID Qty: 60 0RF acetaminophen 500 mg tablet 1,000 mg PO Q8H PRN (Reason: pain) Qty: 90 3RF oxycodone 5 mg tablet 5 mg PO Q4H PRNQty: 18 0RF Continued ACETAMINOPHEN 650 MG SUPP.RECT 650 mg RC PRN ibuprofen 800 MG tablet 800 mg PO PRN omeprazole magnesium [Prilosec OTC] 20 MG tablet,delayed release (DR/EC) 20 mg PO DAILY glucosamine sulfate 2KCl 1,000 MG tablet 1,000 mg PO TID Qty: 1 Discharge Instructions Additional Instructions: Total Knee Discharge Instructions Activity: You have no formal restrictions with mobility about the left knee. However, he will have weakness with knee extension and with standing and walking. The knee immobilizer was provided to help support the knee with ambulation. I would recommend wearing is much as possible. However, you may remove it when you not ambulating or remove it when you need to bend the knee to get in and out of a vehicle, chair, or other. You should work on ankle pumps and other exercises. Gentle range of motion of the knee is encouraged although I would not push it. Dressing: You have a vacuum-assisted dressing placed onto the knee. There is a cord with a battery pack attached to the dressing. This will likely from the batteries by around the 1 week inés. You can try replacing the batteries or simply clip the cord from just above the dressing, leave the dressing in place until your follow-up in 2 weeks. If you have any questions about this, please feel free to contact the office. Medications: - You should take Tylenol and anti-inflammatory Celebrex as your primary pain control medications. If the Celebrex is too expensive or not covered, please call the office for another alternative (Advil/Ibuprofen or Naproxen/Aleve) - You have been prescribed a stronger pain medication Oxycodone for breakthrough pain, take as needed as prescribed. If you need a refill or your pain is not being controlled, please contact Dr. Michel or his office. - You have also been prescribed a stomach acid reduction agent Pantoprozole to help reduce stomach acid and reflux. - You have been prescribed Gabapentin to take at night for restlessness and nerve pain. - You will be taking Aspirin 81mg twice a day for DVT prevention unless instructed otherwise. - You will be receiving ceftriaxone as antibiotic in the IV once a day. You may require the use of probiotics or frequent yogurt intake to help out with GI disruption from the antibiotics. - If you have constipation you should take Colace or Miralax (both [id number]). It takes most people 3-4 days to have a bowel movement. Follow-up: 2 weeks If you have any acute concerns or questions, please do not hesitate to contact the office at [phone]. You may contact Dr. Michel with any questions after hours through the hospital at [phone] or on his cell phone at [phone]. 1. Encounter Date and Reason I certify that Mitchell Potter was seen by Js Michel MD on 01/21/24 and that I had a [id number] encounter with this patient that meets the physician face to face encounter requirements. 2. Clinical Findings Supporting Skilled Need and Homebound Status I certify that home health services are medically necessary, include either intermittent care home and/or physical/speech therapy, and that this patient is homebound in that absences from the home require considerable and taxing effort and are infrequent or of short duration, or are attributable to the need to receive medical care. [X] (a) Attached documentation from encounter provides clinical findings supporting skilled need and homebound status (including what assistance patient requires to leave the home). The encounter with the patient was in whole, or in part, for the following medical condition, which is the primary reason for home health care: Total knee infection Mcc: Mitchell would benefit from care home to assist with IV mediation administration and management of complex medical problem with medications. Physical Therapy: Speech Therapy: Homebound: Dwight is homebound and unable to leave his home unassisted due to weakness and gait abnormality following revision knee surgery. 3. Certification and Authentication I certify that I composed the above information based on my clinical judgement relating to this patient's medical condition and, if applicable, clinical findings communicated to me by the NPP or inpatient physician who performed the Home Health Referral. All further orders will be obtained through Dr. Michel Referrals: Js Michel MD [ [facility] STAFF PHYSICIAN] - Activity:: Activity as Tolerated Equipment/Supplies:: Walker Diet:: As Tolerated Discharge Orders Discharge Orders: Discharge Order (Routine); Ordered 01/22/24 Ordered By: Js Michel DS: Summary Time Spent with Patient providing and/or coordinating discharge services: Less than 30 minutes Status at Discharge Functional status at discharge: uses cane/walker Overall status at discharge: patient is progressing back to baseline Mental Status: mental status grossly normal Speech and Movement: speech and movement normal Mood: congruent mood Affect: normal affect Quality:SDOH Health Related Social Needs: No Data to Display Exam Narrative Exam Narrative: Sitting up in the chair. NAD. AAOx3. Extrem Other: LLE dressing c/d/i with no change in small amount of sanguinous discharge. +ADF/APF/EHL/FHL. SILT DP/SP/Tib. Psych Mental Status: mental status grossly normal Speech and Movement: speech and movement normal Mood: congruent mood Affect: normal affect DS: Data Vitals/I&O Vitals and I&O: Vital Signs Temperature 36.5 C 01/21/24 07:28 Temperature Source Temporal Artery Scan 01/21/24 07:28 Pulse 92 H 01/21/24 07:28 Pulse Rhythm Regular 01/20/24 21:16 Respiratory Rate 20 01/21/24 07:28 Respiratory Effort Normal 01/20/24 21:16 Respiratory Depth Normal 01/20/24 21:16 Respiratory Pattern Normal 01/20/24 21:16 Blood Pressure 185/91 H 01/21/24 07:28 Blood Pressure Mean 78 01/19/24 12:43 Blood Pressure Position Supine 01/19/24 12:43 Pulse Oximetry 98 01/21/24 07:28 Oxygen Delivery Method Room Air 01/21/24 07:28 Oxygen Flow Rate 0 01/21/24 07:28 Pain Level 0 01/21/24 08:55 Comment nurse in room. 01/20/24 03:56 Intake & Output 01/20/24 01/20/24 01/21/24 11:59 23:59 11:59 Intake Total 944.667 / 994.667 50 / 994.667 272 / 272 Output Total 1355 / 3000 1170 / 3000 2725 / 2725 Balance -410.333 / -2005.333 -1120 / -2005.333 -2453 / -2453 Intake: IV 944.667 / 994.667 50 / 994.667 50 / 50 Oral 222 / 222 Output: Urine 1355 / 3000 1170 / 3000 2725 / 2725 Other: Urine Color Yellow Yellow Yellow Urine Appearance Clear Clear Clear Urine Odor None None Comment urinal. urinal. Voiding Methods Urinal Urinal Data Completed and Pending Labs on day of discharge: Labs from last 24 hours 01/20/24 01/20/24 13:00 06:35 Hemoglobin A1c 5.5 Add-On Test Request DONE Preliminary micro results at discharge 01/19/24 15:39 Surgical Culture - Preliminary Knee - Left 01/19/24 14:50 Abscess Culture - Preliminary Knee - Left 01/19/24 14:50 Anaerobic Culture - Preliminary Knee - Left 01/19/24 15:39 Anaerobic Culture - Preliminary Knee - Left 01/19/24 12:47 Blood Culture - Preliminary Blood NO GROWTH 24 HOURS 01/19/24 12:27 Blood Culture - Preliminary Blood NO GROWTH 24 HOURS PFSH All Active Problems Infection of prosthetic left knee joint (Acute) Alcoholic hepatitis (Acute) Medical History Neuropathy BPH (benign prostatic hyperplasia) Anemia Alcohol abuse Actinic keratosis Gastroesophageal reflux disease Surgical History History of arthroscopic knee surgery History of carpal tunnel release History of prostate surgery Replacement of total knee joint (09/19/12) LEFT SIDE Social History Smoking/Tobacco Use Status: Former Tobacco Use Quit Date: 08/23/03 Smoking risk assessment performed?: Yes Alcohol Intake: current Alcohol Intake frequency: 0-2 drinks per day Alcohol type: hard liquor Drug use: Never Substance use type: does not use Details: Last ETOH 01/17 3-4 shots hard liquor Housing: house Do you feel safe at home: Yes Do you feel safe in your relationship?: Yes Time Spent with Patient Time Spent with Patient: <45 minutes Time was spent: preparing to see the patient(eg.review tests), ordering medications,tests, procedures, referring, communicating with other health account executive healthcare, indepentently interpreting results and counseling the patient
[2024-01-22 07:28] VITALS: BP 158/90; PULSE 87; RESP 15; TEMP 36.1; O2SAT 98
[2024-01-22] MEDS: cefTRIAXone 2 GM/50 ML BAG IVPB (07:37)
[2024-01-22] MEDS: Pantoprazole 40 MG TABCR PO (07:37)
[2024-01-22] MEDS: Aspirin E.C. 81 MG TABEC PO (07:38)
[2024-01-22] MEDS: Acetaminophen 500 MG TAB 1000 MG PO ×2 (07:38→14:23)
[2024-01-22] MEDS: oxyCODONE 5 MG TAB PO (09:07)
--- NOTE | 2024-01-22 09:51 | PT.INTREAT ---
PT Notes Visit Reasons: Total knee infection Inpatient Physical Therapy Treatment Note [facility] Date: 01/22/24 PRECAUTIONS:Standard SUBJECTIVE: Pt reports that he would like to go home. He states that he is not experiencing any real discomfort today, but has had pain medication. OBJECTIVE: Therapeutic Activities (74662y[]): Direct one-on-one instruction in dynamic activities to improve functional performance. ? BED MOBILITY/TRANSFERS? Sit-stand: SBA? Stand-sit: SBA ? Provided skilled cues and instruction on performance and technique throughout. Gait Training (57544q[1]): Direct one-on-one instruction and skilled instruction in: [X] employing an assistive device [X] modified weight-bearing status [X] movement sequencing [X] Provided verbal cues for equipment management and technique [X] Provided instruction in gait pattern GAIT? Assistive Device: Crutches ? Weight bearing: WBAT with immobilizer Assist: SBA ? Distance:? 150ft ? Therapeutic Exercises (19569d[1]): Direct one-on-one instruction in therapeutic exercises to develop strength, endurance, range of motion and flexibility. ? Exercises ? [] Ambulation ? Assistive Device: Crutches ? Weight bearing: WBAT with immobilizer Assist: SBA ? Distance:? 150ft ? Deviation: [] ? ASSESSMENT:? Pt is very ready to go home. Pt required vc's for slowing his pace and proper techniques with gait with crutches. PLAN: Cont as per PT POC. TREATMENT CODE/TIME: 9:25-9:50 (25) Gaitx1 TEx1
[2024-01-22 11:34] VITALS: BP 162/92; PULSE 109; RESP 15; TEMP 36.8; O2SAT 100
--- NOTE | 2024-01-22 11:35 | PDOC.CMDIS ---
Date of service: 01/22/24 Time of Service: 11:35 LACE Index Scoring Tool Questions: Length of Stay (in days): 3 Was the patient admitted via the E.D.?: No E.D. Visits: 0 Answers: Total Score: 3 Risk of Readmission: Low Risk Care Management Discharge Plan Reason for Hospitalization: total knee infection Discharge Plan: Mitchell will return home with new orders for HH RN through [facility]; orders and discharge summary were faxed to [facility]. CM contacted [facility], and faxed the discharge summary and administration record, as requested. His medication/supplies will be delivered this evening, and he will begin his home infusion tomorrow. Mitchell will be driven home via private vehicle by his . He will follow up with Ortho, his PCP, and his discharge plan of care. He is happy to be going home. Patient/Family Education Needs: Review discharge instructions and limitations, discussion of self care needs including ask me three. Services Needed at Discharge: Home Health Care Services (new HH RN for home IV abx) and Infusion Therapy ([facility], home infusion) [facility] Health Related Social Needs: No Data to Display
== END 2024-01-22 14:49 | disposition home health service (06) | DRG 468 ==
LOC: PDS 11:23 → MS 17:21
PROVIDERS: Admitting Provider Student in an Organized Health Care Education/Training Program; PCP Nurse Practitioner Family; Visit Provider Student in an Organized Health Care Education/Training Program
PROC: 0SPD0JZ Removal of Synthetic Substitute from Left Knee Joint, Open Approach (ICD-10-PCS; CPT 27487; principal; 2024-01-19 15:30)
DX: T84.54XA Infection and inflammatory reaction due to internal left knee prosthesis, initial encounter (principal); K70.10 Alcoholic hepatitis without ascites; F10.10 Alcohol abuse, uncomplicated; K21.9 Gastro-esophageal reflux disease without esophagitis; D64.9 Anemia, unspecified; N40.0 Benign prostatic hyperplasia without lower urinary tract symptoms; I10 Essential (primary) hypertension
CPT/HCPCS: 27488; 20704; 36569; 36415; 36573; 71045; 76942; 80048; 84520; 85027; 87040; 87077; 97110; 97116; 97162; 97530; 73560; 80202; 82565; 83036; 86140; 87070; 87075; 87186; 87205; C1776; J0665; J0690; J0696; J2001; J2250; J2371; J2405; J2704; J3370; J3372; Q9968

== ENCOUNTER 2024-02-03 15:36 | Outpatient (CLI) | payer MEDICARE, SELFPAY ==
--- NOTE | 2024-02-03 12:00 | DI.RAD_ITS ---
Exam(s) XR KNEE LT 2V AP,LAT EXAM: XR KNEE LT 2V AP,LAT CLINICAL HISTORY: L knee surgery. TECHNIQUE: 2D digital imaging was performed of the left knee. Four images were obtained. AP and la teral views were obtained. COMPARISON: CR,XR XR KNEE LT 2V AP,LAT from 01/19/2024 FINDINGS: BONES: There are stable postsurgical changes of a left total knee revision with a proximal tibial sp acer in place. Orthopedic hardware appears stable. No bony destructive lesion is seen. JOINTS: The knee is normally aligned. SOFT TISSUE: Soft tissue calcifications are present. IMPRESSION: Stable postsurgical changes of the knee. DATA REPOSITORY: RADIATION DOSE DELIVERED:
== END 2024-02-03 15:37 | disposition home or self-care (01) ==
LOC: DIORS 15:36
PROVIDERS: PCP Nurse Practitioner Family; Referring Provider Nurse Practitioner Family
DX: T84.54XA Infection and inflammatory reaction due to internal left knee prosthesis, initial encounter (principal); Z47.1 Aftercare following joint replacement surgery
CPT/HCPCS: 73560

== ENCOUNTER 2024-03-16 12:38 | Outpatient (CLI) | payer MEDICARE, SELFPAY ==
[2024-03-16 10:39] LABS: Abs Immature Grans 0.03 10^3/uL (0.0-0.06); Absolute Basophil Count 0.05 10^3/uL (0.0-0.2); Absolute Eosinophil Count 0.21 10^3/uL (0.0-0.7); Absolute Lymphocyte Count 1.06 10^3/uL (1.2-3.4); Absolute Monocyte Count 0.75 10^3/uL (0.1-0.8); Absolute Neutrophil Count 5.04 10^3/uL (1.2-6.7); Basophils % 0.7 %; Eosinophils % 2.9 %; HCT 37.3 % (40.0-50.0); HGB 12.1 g/dL (13.5-17.5); Immature Grans % 0.4 %; Lymphocytes % 14.8 %; MCH 30.6 pg (27.0-33.0); MCHC 32.4 % (32.0-36.0); MCV 94 fL (80-95); MPV 8.7 fL (8.0-11.0); Monocytes % 10.5 %; Neutrophils % 70.7 %; Platelet Count 332 10^3/uL (130-400); RBC 3.96 10^6/uL (4.36-5.78); RDW 15.5 % (11.8-14.1); RDW-SD 54.1 fL; WBC 7.14 10^3/uL (4.4-10.8)
[2024-03-16 10:48] LABS: ESR 8 mm/hr (0-20)
[2024-03-16 11:23] LABS: C-Reactive Protein < 0.50 mg/dL (<or=0.5)
== END 2024-03-16 12:39 | disposition home or self-care (01) ==
LOC: LBO 12:39
PROVIDERS: PCP Nurse Practitioner Family; Visit Provider Student in an Organized Health Care Education/Training Program
DX: T84.54XA Infection and inflammatory reaction due to internal left knee prosthesis, initial encounter (principal)
CPT/HCPCS: 36415; 85652; J1010; 85025; 86140

== ENCOUNTER 2024-04-13 03:46 | Outpatient (CLI) | payer MEDICARE, SELFPAY ==
[2024-04-13 14:04] LABS: HCT 38.4 % (40.0-50.0); HGB 12.5 g/dL (13.5-17.5); MCH 30.6 pg (27.0-33.0); MCHC 32.6 % (32.0-36.0); MCV 94 fL (80-95); MPV 8.6 fL (8.0-11.0); Platelet Count 385 10^3/uL (130-400); RBC 4.09 10^6/uL (4.36-5.78); RDW 14.8 % (11.8-14.1); WBC 5.86 10^3/uL (4.4-10.8)
[2024-04-13 14:13] LABS: Anion Gap 7.9 mmol/L (3-11); BUN 12 mg/dL (7-18); CO2 28.1 mmol/L (21.0-32.0); CREATININE 0.9 mg/dL (0.70-1.30); Calcium 9.2 mg/dL (8.5-10.1); Chloride 98 mmol/L (98-107); Estimated GFR 93.61 (mL/min/1.73m2); Glucose 94 mg/dL (74-106); Potassium 3.9 mmol/L (3.5-5.1); Sodium 134 mmol/L (136-145)
== END 2024-04-13 03:47 | disposition home or self-care (01) ==
LOC: LBO 03:46
PROVIDERS: PCP Nurse Practitioner Family; Visit Provider Student in an Organized Health Care Education/Training Program
DX: T84.54XA Infection and inflammatory reaction due to internal left knee prosthesis, initial encounter (principal); Z01.818 Encounter for other preprocedural examination
CPT/HCPCS: 36415; 80048; 85027

== ENCOUNTER 2024-04-26 10:06 | Inpatient (IN) | payer MEDICARE, SELFPAY ==
[2024-04-26] VITALS (24 sets, daily range): BP systolic 117–184; BP diastolic 54–90; PULSE 75–98; RESP 13–22; TEMP 36.1–36.9; O2SAT 94–100; BMI 31.6
--- NOTE | 2024-04-26 | DI.RAD_ITS ---
Exam(s) XR KNEE LT 2V AP,LAT EXAM: XR KNEE LT 2V AP,LAT CLINICAL HISTORY: s/p revision TKA. TECHNIQUE: 2D digital imaging was performed. COMPARISON: CR,XR XR KNEE LT 2V AP,LAT from 01/19/2024 CR XR KNEE LT 2V AP,LAT from 02/03/2024 FINDINGS: Two postop views-AP and lateral There is been placement of revision prosthesis components in the tibia and femur. No fracture or loo sening. No evidence of osteomyelitis. IMPRESSION: Revision prosthesis appears satisfactory. DATA REPOSITORY: RADIATION DOSE DELIVERED:
[2024-04-26] MEDS: Celecoxib 200 MG CAP 400 MG PO (08:37)
[2024-04-26] MEDS: Gabapentin 300 MG CAP PO ×2 (08:37→20:17)
[2024-04-26] MEDS: Acetaminophen 500 MG TAB 1000 MG PO (08:37)
[2024-04-26] MEDS: Lactated Ringers 1,000 ML 80 ML IV ×2 (09:15→17:13)
--- NOTE | 2024-04-26 09:31 | ANES.PREOP_ITS ---
General Info Date of Service Date Performed: 04/26/24 Height: 6 ft Weight: 106 kg Body Mass Index (BMI): 31.6 Surgical Procedure: Operation Date: 04/26/24 11:40 Proposed Procedure Side Surgeon p Knee Total Revision, Depuy Attune Left Js Michel MD Meds Allergies and Home Medications Allergies Allergy/AdvReac Type Severity Reaction Status Date / Time No Known Allergies Allergy Verified 04/26/24 08:09 Home Medication ?Medication ?Instructions ?Recorded Acetaminophen 650 mg RC PRN 11/21/12 ibuprofen 800 mg tablet 800 mg PO PRN 11/21/12 glucosamine sulfate 2KCl 1,000 mg 1,000 mg PO TID ##1 09/29/13 tablet acetaminophen 500 mg tablet 1,000 mg (2 x 500 mg) PO Q8H PRN 03/17/24 pain #90 tabs celecoxib 200 mg capsule See Rx Instructions .Route 04/25/24 .COMPLEX #60 caps Current Visit Medications: Current Medications Generic Name Dose Route Start Last Admin Trade Name Freq PRN Reason Stop Dose Admin Acetaminophen 1,000 mg 04/26/24 06:00 04/26/24 08:37 Acetaminophen 500 Mg Tab PO 04/26/24 23:59 1,000 mg PREOP JOSEPH Administration Celecoxib 400 mg 04/26/24 06:00 04/26/24 08:37 Celecoxib 200 Mg Cap PO 04/26/24 23:59 400 mg PREOP JOSEPH Administration Gabapentin 300 mg 04/26/24 06:00 04/26/24 08:37 Gabapentin 300 Mg Cap PO 04/26/24 23:59 300 mg PREOP JOSEPH Administration Ringer's Solution 1,000 mls @ 80 mls/hr 04/26/24 06:00 04/26/24 09:15 IV 04/26/24 23:59 80 mls/hr INFUSION JOSEPH Administration Cefazolin Sodium/Dextrose 2 gm in 50 mls @ 100 mls/hr 04/26/24 06:00 Ancef Duplex IVPB 04/26/24 23:59 PREOP JOSEPH Tranexamic Acid/Sodium Chloride 1,000 mg in 100 mls @ 600 mls/hr 04/26/24 06:00 IVPB 04/26/24 23:59 PREOP JOSEPH Tranexamic Acid/Sodium Chloride 1,000 mg in 100 mls @ 600 mls/hr 04/26/24 06:00 IVPB 04/26/24 23:59 DIRECTED [facility] IV Miscellaneous Supplies 1 each 04/26/24 06:00 Iv Access IV 04/26/24 23:59 DIRECTED JOSEPH Sodium Chloride 0 ml 04/26/24 06:00 Normal Saline Flush 10 Ml Syr IV 04/26/24 23:59 PRN PRN Sodium Chloride 0 ml 04/26/24 06:00 Normal Saline 10 Ml Vial IJ 04/26/24 23:59 DIRECTED PRN Sterile Water 0 ml 04/26/24 06:00 Water,Injection,Sterile 10 Ml Vial IJ 04/26/24 23:59 DIRECTED PRN PFSH Active Problems Active Problems: Problem Status Onset Code Tinnitus Acute H93.19 Deafness in right ear Acute H91.91 Osteoarthritis of right knee Acute M17.11 Infection of prosthetic left knee joint Acute T84.54XA Medical History Medical History Alcoholic hepatitis Neuropathy BPH (benign prostatic hyperplasia) Anemia Alcohol abuse Actinic keratosis Gastroesophageal reflux disease Medical History Comments:: +4 pitting edema LEs; rt more than left Surgical History Surgical History History of arthroscopic knee surgery History of carpal tunnel release History of prostate surgery Replacement of total knee joint (09/19/12) LEFT SIDE Tobacco Smoking/Tobacco Use Status: Former Tobacco Use Alcohol Alcohol Intake: current Alcohol intake frequency: 0-2 drinks per day Alcohol type: hard liquor Substance Use Substance use: Never Substance use type: does not use Vital Signs and Lab Results Vital Signs Most Recent Vital Signs in EMR: Most Recent Vital Signs Temp Pulse Resp BP Pulse Ox 36.9 C 87 16 169/90 H 99 04/26/24 08:22 04/26/24 08:22 04/26/24 08:22 04/26/24 08:22 04/26/24 08:22 Lab Results Blood Type / Crossmatch: No Data to Display Complete Blood Count: White Blood Count 5.86 10^3/uL (4.4-10.8) 04/13/24 13:54 Red Blood Count 4.09 10^6/uL (4.36-5.78) L 04/13/24 13:54 Hemoglobin 12.5 g/dL (13.5-17.5) L 04/13/24 13:54 Hematocrit 38.4 % (40.0-50.0) L 04/13/24 13:54 Platelet Count 385 10^3/uL (130-400) 04/13/24 13:54 Complete Metabolic Panel: Sodium 134 mmol/L (136-145) L 04/13/24 13:54 Potassium 3.9 mmol/L (3.5-5.1) 04/13/24 13:54 Chloride 98 mmol/L (98-107) 04/13/24 13:54 Carbon Dioxide 28.1 mmol/L (21.0-32.0) 04/13/24 13:54 BUN 12 mg/dL (7-18) 04/13/24 13:54 Creatinine 0.9 mg/dL (0.70-1.30) 04/13/24 13:54 Est GFR (CKD-EPI 2020) 93.61 (mL/min/1.73m2) 04/13/24 13:54 Calcium 9.2 mg/dL (8.5-10.1) 04/13/24 13:54 Glucose 94 mg/dL (74-106) 04/13/24 13:54 Liver Function Panel: No Data to Display Coagulation Panel: No Data to Display Cardiac Panel: No Data to Display Arterial Blood Gas: No Data to Display Venous Blood Gas: No Data to Display Pancreas Panel: 2 No Data to Display Thyroid Panel: No Data to Display Infectious Disease: No Data to Display Blood Cultures: No Data to Display Toxicology Panel: No Data to Display Anesthesia Assessment and Plan Anesthesia History Personal History: No History of Anesthesia Complications Family History: No Family History of Anesthesia Complications Exercise Tolerance Exercise Tolerance: Metabolic Equivalents>4 Pertinent Negatives Pertinent Negatives: No Symptoms of GERD, No Major Cardiovascular Symptoms or Complaints and No Major Pulmonary Symptoms or Complaints Cardiac & Pulmonary Exam Cardiac Exam: Normal S1/S2 Heart Sounds Pulmonary Exam: Clear Bilateral Breath Sounds and No cough or Cold Cardiac and Pulmonary Comment:: Right lower extremity edema, surgeon aware Implantable Cardiac Device Does patient have a Pacemaker or an ICD?: No Airway Exam Known Difficult Airway: No Mallampati Class: 2 Mouth Opening: Normal (> 3cm) Thyromental Distance: Greater than 3 cm Neck Range of Motion: Full ROM Neck Circumference: Normal Teeth Condition: Normal Dentition ASA Classification ASA Score: ASA 3 Emergency Case?: No NPO Status NPO Status: NPO Clears >2 hours, Solids >8 hours Anesthesia Plan Resuscitation Status: Full Code Anesthesia Technique: Spinal Anesthesia Airway Planned: Natural Airway Pain Management: Surgeon and patient request nerve block Monitors Used: Standard Monitors
--- NOTE | 2024-04-26 10:59 | W.ANESNERVE ---
Nerve Block Single Injection Procedure Date and Time Date Performed: 04/26/24 Procedure Start: 09:40 Location Where Procedure Performed Procedure Location: Day Surgery Unit Reason Performed: Postoperative Analgesia Requesting Provider: Js Michel Timeout Performed Timeout Performed: Yes Monitoring Used ECG, Blood Pressure, SpO2 and See EMR for corresponding vital signs Sterility Sterility: Hand Hygiene, Surgical Cap, Surgical Mask, Sterile Gloves and Chlorhexidine Sedation Given During Procedure Sedation Given (Indicate Dose Given): No Sedation given Patient Mental Status Patient Mental Status: Awake Nerve Block 1st Nerve Block: Laterality: Left Block Type: Adductor Canal Ultrasound Image Saved?: Yes Needle / Catheter Used: 100mm SonoPlex II Local Anesthetic Bolus (Indicate Dose Given): Lidocaine used for local infiltration of skin, Injected in 3-5ml increments after negative blood aspiration and Bupivacaine 0.25% Dose:: 15ml Additives (Indicate Dose Given): None Ultrasound: Sterile probe cover and gel used Nerve Stimulator: Supplement to Ultrasound use Paresthesia: None Procedure Tolerated: No Complications and Patient tolerated well Procedure Outcome: Successful Performed By: Joni Sage Supervised By: Tierra Galvez
[2024-04-26] MEDS: ceFAZolin 2 GM/50 ML BAG IVPB (12:00)
--- NOTE | 2024-04-26 12:07 | ROE_ITS ---
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 Disruption POST-OP DIAGNOSIS: same (and vertical patella fracture) PROCEDURE: Revision Total Knee Replacement - LEFT SURGEON: Js Michel INSPECTOR PRECISION ASSEMBLY: Chuck Donnelly ANESTHESIA TYPE: Spinal Refer to Anesthesia Record ESTIMATED BLOOD LOSS: 900 PATHOLOGY: none sent TOURNIQUET TIME: 50 COMPLICATIONS: None Patient was transported to: PACU Patient's condition: stable Implants: TIBIA: Depuy Attune Revision Tibial Tray, Size 6 - [id number] Cementless Tibial Stem - Partially Coated Cementless Sleeve, 61mm FEMUR: Depuy Attune Revision CRS Femoral Component, Size 8 - [id number] Cementless Femoral Stem - Cementless Sleeve, 35mm - 8mm Posterolateral, 4mm Posteromedial POLY: Depuy Attune CRS Rotating Platform, 8x16mm Depuy Attune Patella Dome, 32mm Indications: I have seen Mitchell in clinic for symptoms of ongoing knee pain. He presented initially to me with a loose and infected left knee replacement. At the time of his explantation of the hardware he was found to have notable bone loss in the tibia as well as a defect in the quadriceps/retinacular repair along with significant patellar wear with a loose and displaced patellar button. He underwent the first stage well and completed his course of antibiotics with normal labs. Therefore, I offered revision knee replacement, converting from the spacer to a new knee component. I discussed the technical details of a revision knee replacement. I explained the risks of the procedure to include, but not limited to, bleeding, infection, pain, stiffness, fracture, damage to nerves and vessels, damage to muscles and tendons, loosening, need for repeat procedure, blood clot and cardiopulmonary demise. Despite these risks, Mitchell elected to proceed. Findings: The previous quadriceps and retinacular defect was well-healed with excellent soft tissue coverage of the deep knee and thickness of the tendon. The patella had a new vertical fracture, the patella into a superior lateral piece, approxione third of the size the patella although with the majority of the quadriceps attachment to the more medial piece. There is also notable bone loss in the lateral tibia. Procedure Description: Mitchell was greeted in the preoperative holding area where the correct side was identified and marked. The consent was reviewed with the patient and signed. The history and physical was updated. All questions were answered. Preoperative medications were administered: Acetaminophen 1000mg, Celebrex 400mg, and Gabapentin 300mg. An adductor canal block was then administered by the anesthesia team in the DSU. Mitchell was taken back to the operating room. A spinal anesthestic was then administered. The patient was placed into the supine position on the operating room table. A nonsterile tourniquet was placed high onto the leg. Posts were placed for positioning during the procedure. All bony prominences were well padded. Prophylactic antibiotics in the form of Cefazolin were administered. 1g of Tranxemic Acid was given intravenously within 30 minutes of incision. The left leg was then prepped with Chloraprep and draped in a standard fashion with impervious stockinette. A second prep with Chloraprep was performed prior to application of Iodine impregnated skin protection. A timeout to confirm correct identity, side and site, procedure, allergies, anesthesia, and medical concerns was performed. With the knee in some flexion, the previous midline incision was made overlying the knee. Full thickness skin flaps were raised once the extensor mechanism was encountered. These were raised medially and laterally in a full thickness fashion. Any bleeding was controlled with electrocautery. Once the extensor mechanism was fully exposed, a medial parapatellar arthrotomy was performed in a flexed position. All bleeding from the arthrotomy and the geniculate arteries was coagulated. This demonstrated that the defect previously encountered of the retinaculum had healed significantly with the pants over vest type repair performed previously. There was tendon without any notable defects. An aggressive complete synovectomy was then performed superiorly, medially, and laterally. Scarring from the fat pad and a portion of the fat pad was removed as well. At this time it was noted that the patella had a fracture. The patella was already quite thin and deformed given the failure of the patellar button for quite some time with the patella riding on the lateral aspect of the femoral component. This seemed to separate the patella into a lateral?superior lateral, third with the bulk of the patella still intact with quadricep and patellar tendon attachments. Attention was then turned to removal of the previous implants. Starting with the femur the interface between the bone and the implant was identified. Utilizing osteotomes I went around the entirety of the femoral component to remove any remaining attachments of the component to the underlying bone. This was done sequentially in a stepwise fashion throughout. Then utilizing a bone tamp on the end of the implant as well as anteriorly, was able to remove the femoral component along with the cement dowel without any bone loss. Then, attention was turned to the tibia. Once again, utilizing a set of osteotomes I worked on the tibial component from the underlying bone. This was done around the periphery of the component until was felt that it was sufficiently freed. Utilizing a bone tamp from under the polyethylene I was able to remove the tibial cement dowel and polyethylene. Once again, this was inspected and showed no significant signs fracture. Cement was then removed from the proximal tibia without any significant difficulty. There was notable defect of the lateral tibia. Utilizing curettes and a rongeur as well as electrocautery, I removed all soft tissue from the surface of the femur and the tibia. A posterior synovectomy was also performed there was better visualization. Any remnant inflamed synovium and necrotic tissue was debrided fully. Starting with the tibia, the tibial canal was reamed by hand. This was taken up until there is adequate cortical engagement, 16 mm. The reamer was left in place, taken down to an appropriate depth based on the planned construct. This appeared to have appropriate positioning. I then utilized the broaching system to broach for a cementless sleeve. This was done up to a size 61mm. The broach was taken just below the cut surface of the tibia and left in place. The proximal aspect of the tibia was then cut in plane with the broach surface. Peripheral soft tissues were protected with appropriate retractors. The broach was removed and the trial component was placed. The tibial tray was rotated approximately to the medial one third of the tibial tubercle and locked into position. Attention was turned to the femur where the femoral canal was reamed by hand as well. This was ensured to be starting in a central slightly posterior position to avoid anterior notching. This was taken up to a size 18mm reamer. Initial plan was to distalize the femur and this was accounted for during the reaming and broaching process for appropriate joint line. A freshening cut was made over the distal aspect of the femur removing no more than 2 mm of bone for a fresh, flat distal femur surface. Broaching was then performed by hand. This was taken up until there was rotational and axial control of the broach. This was left in position and the distal cutting device was attached. Extension and flexion gaps were then assessed. Rotation of the femoral component was set with the tibia in 90 degrees. Unfortunately, this showed that there is still some instability in flexion when compared to extension. I went up to a size 8 femur but this still showed some gap in the flexion space. Therefore, I remove the distal augmentation from the femur which did balance the flexion extension gaps. There is still some mild laxity with varus stress in flexion but otherwise the medial side was congruent throughout extension to flexion. The posterior cuts were then assessed. This showed 8 mm posterior lateral and 4 mm posterior medial augment. The anterior and posterior chamfers were cut. The central portion of the jig was then removed and the notch was cut. Trial implants were then inserted. The knee was taken through range of motion. This showed stability with a 16mm polyethylene insert. The trial femur was removed. The trial tibial implant was removed. The knee was then brought into extension and the patella was evaluated. The superior lateral fragment still had a tendinous attachment. I was unsure how to proceed. I was able to place a patellar button on the medial segment. I considered using this as the primary patella. I did not think any repair of the patella would be possible to heal. Instead of performing complete patellectomy me release a partial patellectomy me I decided to debride the bone down of the superolateral fragment down to its capsular and ligamentous attachments. I placed the patella onto the larger medial piece after planing it down to a flat surface planar with the tendon attachment. A 32 mm patella fit completely on the medial segment of the patella. This was oriented and then clamped into position. The lugs were drilled. The final components, except for the polyethylene were opened on the back table. The periosteal and capsular tissues, especially posteriorly, around the knee were then systematically injected with a periarticular cocktail consisting of 246mg of Ropivacaine, 0.5mg of Epinephrine, 0.08mg of Clonidine, and 30mg of Ketorolac, diluted to 100cc.. The tourniquet was then inflated to 275mmHg. The knee was thoroughly irrigated with a pulse lavage and dried. On the back table, the implants were opened. They were assembled matching the rotation and position of the trial implants on the final components. They are prepared according to therapy technician recommendations. Now with the implants opened, the cement was mixed. 2 batches of medium viscosity cement were prepared with vacuum assistance. After the cement was ready a small amount was placed on to the back side of the tibial component making sure to not get any cement on the sleeve. Similarly, cement was placed onto the backside of the femoral component. Starting with the tibia, the tibia was fully exposed and the stem was inserted and the sleeve was aligned. Once it appeared to be appropriately oriented, it was impacted into position. The seem to rest completely on the cut tibial surface. Excess cement was removed. It was ensured to be down against the cut surface. Next, cement was manually impacted onto the cut surface of the distal femur. The femoral component was then inserted utilizing the femoral component for rotational control. This was impacted into position. Excess cement was removed. The trial polyethylene was then inserted and the leg was brought out into full extension for the duration of the cement curing process, approximately 18min. Cement was lastly manually impacted into the cut surface of the patella and the patellar button was clamped into position and held. During this process attention was turned to the gutters of the knee and for all interfaces for any excess cement. While the cement was hardening, the knee was irrigated with Surgiphor chlorhexadine solution. This was allowed to sit in the knee for 3 minutes and then it was thoroughly irrigated with saline. After the cement had finally cured, approximately 18min, the clamp was removed from the patella and the knee was taken through range of motion. The tourniquet was now deflated and the knee was inspected for any signs of significant bleeding, which there were none. A size 16mm polyethylene component provided the best range of motion and stability with less than 2mm gapping with medial and lateral stress and full extension without significant hyperextension. The patella was tracking with a no-thumbs technique. The trial poly was removed and once again the knee was checked for any loose, excess, or errant cement. The poly component was then inserted into position after cleaning and drying the tibial tray. The capsule was then reapproximated with a #2 FiberWire as well as a #1 Vicryl at multiple locations. The capsule was finally closed with a No. 2 Stratafix, barbed suture. The second dose of 1g TXA was started. Deep tissues were then reapproximated with 0 Vicryl and 2-0 Monocryl. The skin was closed with a running 3-0 Monocryl in a subcuticular fashion. This was reinforced with skin glue. A Mepilex silver dressing was applied along with a [id number] LYNDA wrap. A CryoCuff was applied. Mitchell was transferred to the hospital bed without difficulty an suffering no apparent complication. Mitchell has a good although somewhat guarded prognosis. Physical therapy will start today and without restrictions, weight-bearing as tolerated. Aspirin 81mg BID will be used for DVT prophylaxis.
[2024-04-26] MEDS: TRANEXAMIC ACID/SOD. CHL. 1,000 MG/100 ML BAG 600 MG IVPB ×2 (12:15→15:27)
--- NOTE | 2024-04-26 16:57 | PT.INNT ---
PT Notes Patient still recovering in PACU at this time. Orthopedic surgeon advised that tomorrow morning is okay for evaluation.
[2024-04-26] MEDS: fentaNYL 100 MCG/2 ML VIAL IVP (17:00)
--- NOTE | 2024-04-26 17:16 | W.ANESPOSTOP ---
Postoperative Evaluation Date, Time and Location Date Performed: 04/26/24 Time Performed: 17:16 Patient Location: PACU Vital Signs Most Recent Imported Vital Signs: Most Recent Vital Signs Temp Pulse Resp BP Pulse Ox 36.2 C L 90 17 146/70 H 97 04/26/24 16:53 04/26/24 17:05 04/26/24 17:06 04/26/24 17:05 04/26/24 17:06 Pain Score Most Recent Pain Score: Most Recent Pain Score Pain Level 3 04/26/24 17:08 Assessment Mental Status: Awake (Alert & Oriented to Patient Baseline) Airway and Respiratory Function: Patent airway with normal (patient baseline) respiratory exam Cardiovascular Function: Hemodynamically Stable Hydration Status: Adequately Hydrated Nausea & Vomiting: No Nausea or Vomiting Pain: Pain is tolerable per patient Peripheral Nerve Block: Regional nerve block not resolved at time of post operative discharge
--- NOTE | 2024-04-26 17:46 | W.PC.ACHO ---
Registration Status: Primary Language: Preferred Language: Medical / Surgical History (Last Reviewed 04/26/24 @ 08:29 by Kiersten Ortiz) Alcoholic hepatitis Neuropathy BPH (benign prostatic hyperplasia) Anemia Alcohol abuse Actinic keratosis Gastroesophageal reflux disease (Last Reviewed 04/26/24 @ 08:29 by Kiersten Ortiz) History of arthroscopic knee surgery History of carpal tunnel release History of prostate surgery Replacement of total knee joint (09/19/12) Most Recent Vital Signs Temperature 36.4 C L 04/26/24 17:32 Temperature Source Tympanic 04/26/24 09:36 Pulse 84 04/26/24 17:32 Pulse Rhythm Regular 04/26/24 08:22 Pulse 88 04/26/24 17:06 Respiratory Rate 14 04/26/24 17:32 Respiratory Depth Normal 04/26/24 08:22 Blood Pressure 142/80 H 04/26/24 17:32 Blood Pressure Mean 95 04/26/24 17:05 Blood Pressure Position Supine 04/26/24 09:36 Pulse Oximetry 99 04/26/24 17:32 Respiratory End-tidal CO2 36 04/26/24 17:01 Oxygen Delivery Method Room Air 04/26/24 17:32 Oxygen Flow Rate 0 04/26/24 17:32 Pain Level 0 04/26/24 17:32 Allergies No Known Allergies Allergy (Verified 04/26/24 08:09) Active Medications Generic Name Dose Route Start Last Admin Trade Name Freq PRN Reason Stop Dose Admin Ringer's Solution 1,000 mls @ 80 mls/hr 04/26/24 06:00 04/26/24 17:13 IV 04/26/24 23:59 80 mls/hr INFUSION JOSEPH Administration IV IV Catheter Type [Right Saline Lock Forearm] IV Catheter Gauge [Right 20 Forearm] Diet Orders Category Date Time Status Regular/Normal [DIET] Nutrition 04/26/24 Lunch Active Intake and Output - 24 Hour Total 03/21/24 13:15 thru 04/26/24 17:32 Intake Total 1350 Output Total 1400 Balance -50 Weight 106 kg Intake: IV 1150 Oral 200 Output: Urine 500 Estimated Blood Loss 900 Other: Urine Color Yellow Urine Appearance Clear Urine Odor None Emesis Description None Voiding Methods Urinal v v v v v v v v v Sending and/or Receiving Nurses: Please use comment section below to note any information pertinent to the patient hand-off not included above. Information / Comments: PT arrives on unit via stretcher. Room 214. LR running into RAC IV Report received from: surgical Nurse
[2024-04-26] MEDS: Celecoxib 200 MG CAP PO (20:17)
[2024-04-26] MEDS: Aspirin E.C. 81 MG TABEC PO (20:17)
[2024-04-26] MEDS: ceFAZolin 1 GM/50 ML BAG IVPB (20:18)
[2024-04-27 03:06] VITALS: BP 130/69; PULSE 71; RESP 18; TEMP 36.2; O2SAT 95
[2024-04-27] MEDS: ceFAZolin 1 GM/50 ML BAG IVPB ×3 (04:18→22:17)
[2024-04-27] MEDS: Acetaminophen 500 MG TAB 1000 MG PO ×2 (04:19→13:30)
[2024-04-27 06:46] LABS: HCT 29.1 % (40.0-50.0); HGB 9.5 g/dL (13.5-17.5); MCH 31.1 pg (27.0-33.0); MCHC 32.6 % (32.0-36.0); MCV 95 fL (80-95); MPV 9.2 fL (8.0-11.0); Platelet Count 248 10^3/uL (130-400); RBC 3.05 10^6/uL (4.36-5.78); RDW-SD 52.2 fL; WBC 10.65 10^3/uL (4.4-10.8)
[2024-04-27 07:10] LABS: ALT 13 U/L (16-63); AST 19 U/L (15-37); Albumin 2.6 g/dL (3.4-5.0); Alkaline Phosphatase 113 U/L (46-116); Anion Gap 6.7 mmol/L (3-11); BUN 16 mg/dL (7-18); Bilirubin, Total 0.19 mg/dL (0.2-1.0); CO2 27.3 mmol/L (21.0-32.0); CREATININE 1.1 mg/dL (0.70-1.30); Calcium 8.1 mg/dL (8.5-10.1); Chloride 102 mmol/L (98-107); Estimated GFR 73.58 (mL/min/1.73m2); Glucose 160 mg/dL (74-106); NT-proBNP 251 pg/mL (<300); Potassium 4.4 mmol/L (3.5-5.1); Sodium 136 mmol/L (136-145); Total Protein 6.1 g/dL (6.4-8.2)
[2024-04-27 07:37] VITALS: BP 136/70; PULSE 85; RESP 16; TEMP 36.8; O2SAT 97
[2024-04-27] MEDS: oxyCODONE 5 MG TAB PO ×3 (08:09→18:47)
[2024-04-27] MEDS: Aspirin E.C. 81 MG TABEC PO ×2 (08:09→19:39)
[2024-04-27] MEDS: Furosemide 40 MG TAB PO ×2 (08:09→15:59)
[2024-04-27] MEDS: Protein Nutritional Supplement 16 GM 1 OUNCE PACKET PO (08:09)
[2024-04-27] MEDS: Celecoxib 200 MG CAP PO ×2 (08:09→19:39)
[2024-04-27] MEDS: Pantoprazole 40 MG TABCR PO (08:09)
--- NOTE | 2024-04-27 08:47 | IN_ITS ---
PT Notes Visit Reasons: Infection L TKR Physical Therapy Inpatient Initial Evaluation Date: 04/27/2024 Referring Doctor: HARSHIL Persaud PT Orders: PT CONSULT: S/P Ortho Surgery Precautions: Fall. Standard. WBAT on L LE. Patient Profile/Admitting Diagnosis: Mitchell is a 68-year-old male with infected and loose R knee prosthesis with quadriceps disruption and is S/P L TKA revision. He was S/P explantation of left TKA prosthesis, placement of low fraction antibiotic spacer, and application of chavez vacuum assisted dressing on 01/19/2024. PMHX: Medical History Alcoholic hepatitis Neuropathy BPH (benign prostatic hyperplasia) Anemia Alcohol abuse Actinic keratosis Gastroesophageal reflux disease Surgical History History of arthroscopic knee surgery History of carpal tunnel release History of prostate surgery Replacement of total knee joint (09/19/12) LEFT SIDE Social History/Home Situation: Lives with in a private home with 4-5 steps to enter. 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 Equipment Owned/DME: FWW, bilateral axillary cruthces, SPC Subjective: Reported 3-4/10 pain in L knee. Nurse Reba came in and gave pain medication about 40 minutes ago. Objective: General Observation: Resting in bed. LYNDA wraps to left LE. Cryocuff to left knee. TEDS to R leg/foot. Mental Status: Alert and oriented as to person, place, time, and purpose. Able to pay attention, focus, and respond appropriately. Pain: 3-4/10 in the L knee Vital Signs: Closely monitored by nursing staff ROM: Right Lower Extremity: Hip flexion WFL. Hip abduction WFL. Knee flexion WFL. Ankle dorsiflexion WFL. Ankle plantarflexion WFL. Left Lower Extremity: Hip flexion allows 90 degrees. Hip abduction WFL. Knee flexion 20 degrees to 100 degrees. Knee extension -20 degrees. Ankle dorsiflexion WFL. Ankle plantarflexion WFL. Strength: Right Lower Extremity: Hip flexors 4/5. Hip abductors 4/5. Knee flexors 4/5. Knee extensors 4/5. Ankle dorsiflexors 4/5. Ankle plantarflexors 4/5. Left Lower Extremity: Hip flexors 3-/5. Hip abductors 4-/5. Knee flexors 3-/5. Knee extensors 3-/5. Ankle dorsiflexors 4/5. Ankle plantarflexors 4/5. Bed Mobility/Transfers: Minimal cueing provided for use of B hands as needed for support, movement sequence, AD management, and posture to reduce fall risk and minimize pain report Supine to sit stand by assist to left LE Sit to stand stand by assist using FWW Stand to sit stand by assist using FWW Bed to reclining chair stand by assist using FWW Gait: Facilitated safe and correct performance of level surface ambulation covering a distance 275 feet using front-wheeled walker with step to gait pattern requiring contact-guard assist. Step-to gait pattern. Minimal cues given for posture to ensure equal distribution of weight onto feet and walker. Balance: Static Sitting: Normal Dynamic Sitting: Good Static Standing: Fair Dynamic Standing: Fair Special Tests: Mobility Limitations Standardized Measure [facility] AM-PAC 6 clicks Basic Mobility Inpatient Short Form: Raw Score: 23 CMS Score: 11% deficit Informed Consent/Education: Patient was instructed in purpose of PT consult and plan of care. Agreeable to proceed with established PT POC to achieve personal goals. ASSESSMENT: Requires the use of FWW for all mobility ADL performance to maximize indepdence and reduce fall risk. Good quad activation on L. Patient presents with clinical signs and symptoms consistent with current/admitting diagnoses that have resulted to mobility limitations, gait instability, generalized weakness, and overall ADL decline as demonstrated by the following impairment level findings: 1. Decreased strength to L hip and knee major muscle groups 2. Impaired sitting/standing balance 3. Impaired activity tolerance 4. Limitation of joint range of motion in extension/flexion Impairments are contributing to the following functional limitations: 1. Decline in bed mobility skills 2. Decline in transfer skills 3. Difficulty with ambulation without assistive device 4. Increased completion time for mobility ADL performance 5. Increased risk for falls 6. Difficulty with managing steps alone safely Patient is assessed [place] a 34499 moderate complexity based on the following: History: 68-year-old malw with past medical history as indicated above Examination: Demonstrable impairment in strength, balance, and mobility level with underlying impairments and functional limitations as exhibited above as well as deficit score of 42% utilizing the [facility] Mobility Inpatient Short Form Presentation: Evolving Decision Makin moderate complexity Goals: Goals X1 week 1. Supine-Sit independent 2. Sit-Supine independent 3. Sit-Stand independent 4. Stand-Sit independent with FWW vs SHASHANK 5. Bed-Chair independent with FWW vs SHASHANK 6. Chair-Bed independent with FWW vs SHASHANK 7. Independent gait on level surface with use of FWW vs SHASHANK for at least 150 feet without report of pain nor dyspnea 8. Independent stair negotiation while holding onto B rails for at least 5 steps without report of pain nor dyspnea 9. Independent with home exercise program 10. Good static and dynamic standing balance/tolerance Plan of Care/Treatment Plan: 1-2x/day, 7 days/week x 1 week. Plan of care has been reviewed with the FULFILLMENT COORDINATOR providing the service under Physical Therapy direction. Initiate Physical Therapy intervention for pain management as needed, strengthening, bed mobility, transfers, gait, stairs, balance training, and use of assistive device. --Educate and train on HEP, train for stairs, and work on increasing safety of ambulation using FWW and knee immobilizer to L. DISCHARGE RECOMMENDATIONS: [] Home with no services [] [] Home with services [specify] [X Home when medically cleared by orthopedic surgeon. Recommend outpatient PT services in order to optimize functional mobility outcomes and facilitate return to independent community ambulation without an assistive device. [] Home with outpatient PT. [] SNF for continued rehabilitation [] [] [facility] [] [] SNF versus LTC based on ability to participate and progress [] TREATMENT CODE/TIME: 73682 x 28 minutes for 1 unit (8:47?9:15). Thank you for the opportunity to participate in the care of this patient. Amber Payne PT, DPT, CLT [facility] [place], [place]
[2024-04-27 09:05] LABS: Lab Add On Test DONE
[2024-04-27 10:36] LABS: Hemoglobin A1C 5.4 % (<5.7)
--- NOTE | 2024-04-27 10:42 | PDOC.CMIN ---
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 He has 2 sons and 3 grandchildren and many other local family members and friends. He drives and is fully independent with his ADL's/IADL's at baseline. Town of Residence: [place] Resides with: Spouse ( Minh Potter) Significant Other/Family: Local Employment Status: Employed Instrumental Activities of Daily Living (ADLs): Independent Activities/Hobbies/SocialSupport: Working on the farm and driving a tractor Medications Medication Management: No Issues/Barriers identified Physical Functioning/Mobility Assistive Device: Uses crutches around the farm Advance Directives Advance Directives: Do you have an Advance Directive: N 01/24/24 15:24 AD On File at [facility]: N 09/29/13 09:44 Date Asked 04/26/24 04/23/24 11:59 AD Date Reviewed COLST On File at [facility] COLST Date Scanned Code Status Resuscitation Status Full Code Portal Pt does not currently have a portal and education provided: Yes Insurance Coverage/Financial Issues Insurance: Medicare Financial Issues: None identified Care Team Visit Care Team Role Provider Type Dominga Silver Primary Care Provider NURSE PRACTITIONER InPatient Anmol Hahn Other Providers OTHER Js Michel MD Admit Provider [facility] STAFF PHYSICIAN Attending Provider Discharge Potential Discharge Needs: PT Evaluation Anticipated Barriers to Discharge: Other (Mobility, waiting to work with PT on the stair. ) Patient/Family Education Needs: Review discharge instructions, discuss Ask Me Three Transportation: Private vehicle (Family) Plan: Mitchell is eager to discharge. Anticipate, pt will discharge home via private vehicle with family when medically ready. ? ABX course. PT recommends outpatient follow up. CM will continue to follow. PFSH All Active Problems Tinnitus (Acute) Deafness in right ear (Acute) Osteoarthritis of right knee (Acute) DEPO MEDROL 03/16/24 Infection of prosthetic left knee joint (Acute) Status post explantation total knee replacement: 01/19/2024 Medical History Alcoholic hepatitis Neuropathy BPH (benign prostatic hyperplasia) Anemia Alcohol abuse Actinic keratosis Gastroesophageal reflux disease Surgical History History of arthroscopic knee surgery History of carpal tunnel release History of prostate surgery Replacement of total knee joint (09/19/12) LEFT SIDE Social History Smoking/Tobacco Use Status: Former Tobacco Use Quit Date: 08/23/03 Smoking risk assessment performed?: Yes Alcohol Intake: current Alcohol Intake frequency: 0-2 drinks per day Alcohol type: hard liquor Drug use: Never Substance use type: does not use Housing: house Do you feel safe at home: Yes Do you feel safe in your relationship?: Yes SDOH(Care Management) Screening Will the Patient Participate in the Screening?: Yes Do you worry about having a steady place to live?: no Problems where you live: no known problems In the past 12 months, have you had to go without electric, gas, oil or water in your home?: no Have you or anyone in your house had to go without enough food to eat?: no Has lack of transportation kept you from medical appointments or from doing things needed for daily living?: no Has anyone in your support network made you feel unsafe for any reason?: no
--- NOTE | 2024-04-27 11:35 | PHA.REVIEW2 ---
Pharmacy Admission Review Admission Clinical Review Admission Pharmacy Review: No Known Allergies Allergy (Verified 04/26/24 08:09) Resuscitation Status Full Code Height 6 ft Weight 106 kg Comments Comments/Follow Ups: POD #1 Revision of Left TKR Pharmacy Admission Review Renal Dosing Renal Dosing: BUN 16 mg/dL (7-18) 04/27/24 06:20 Creatinine 1.1 mg/dL (0.70-1.30) 04/27/24 06:20 Medications needing adjustments: Reviewed (CrCl 81.9 mL/min) List of meds needing interventions: Current medications are okay Anticoagulation Anticoagulation: Hgb 9.5 g/dL (13.5-17.5) L 04/27/24 06:20 Hct 29.1 % (40.0-50.0) L 04/27/24 06:20 Plt Count 248 10^3/uL (130-400) 04/27/24 06:20 Creatinine 1.1 mg/dL (0.70-1.30) 04/27/24 06:20 DVT Prophylaxis: Reviewed (SCDs/TEDs) Opiate Usage Evaluate Pain Scale/Pains Meds: Reviewed (PRN PO oxycodone - 1 dose given this AM) Scheduled Bowel Reg ordered if on Opiates?: No (PRN docusate/Miralax) Relevant Labs Relevant Labs: Sodium 136 mmol/L (136-145) 04/27/24 06:20 Potassium 4.4 mmol/L (3.5-5.1) 04/27/24 06:20 Chloride 102 mmol/L (98-107) 04/27/24 06:20 Electrolytes, C-Reactive P, ESR: Reviewed DM Control DM Control: Glucose 160 mg/dL (74-106) H 04/27/24 06:20 Hemoglobin A1c 5.4 % (<5.7) 04/27/24 06:20 Finger Stick Blood Glucose 179 0835 Finger Stick Blood Glucose 179 0835 DM Control: Reviewed (Does not have a diagnosis of diabetes) Cardiac Review Cardiac Review: NT-Pro-B Natriuret Pep 251 pg/mL (<300) 04/27/24 06:20 BP, HR, EF%: Reviewed (HR and BP WNL) List meds needing interventions: takes furosemide 40mg BID QTc Review QTc: Reviewed (No EKG on file) IV to PO Switch IV Medications: Reviewed (cefazolin and ondansetron) Home Meds Home Med List reviewed: Reviewed Relevent Home Meds Not ordered & why?: glucosamine, ibuprofen (PRN) Current Meds Current Medication Order Review: Intervened Comments: Added IV admission order set Pharmacy Antibiotic Review Pharmacy Antibiotic Activity: Reviewed, no change Comments: Cefazolin post op Comments Comments/Follow Ups: POD #1 Revision of Left TKR
--- NOTE | 2024-04-27 12:48 | PGE_ITS ---
Date of Service Date of service: 04/27/24 Time of Service: 12:48 Assessment and Plan Assessment and plan (1) Infection of prosthetic left knee joint: Status: Acute Assessment and plan: Dwight is now status postconversion of his antibiotic spacer from infection into a revision knee arthroplasty. He was found to have a fracture patella at the same time as the surgery. He is now status post his above procedure and is overall doing well. He did have bleeding today. The hematoma was evacuated and the wound was dressed. I will keep him on antibiotics while he is here due to this wound and also the history. I will likely continue for 2 weeks prophylactic antibiotics given his infection history. He otherwise in good progress. I expect home discharge tomorrow. Qualifiers: Encounter type: initial encounter Qualified Code(s): T84.54XA - Infe ction and inflammatory reaction due to internal left knee prosthesis, initial encounter (2) Peripheral edema: Status: Acute Assessment and plan: Dwight does have notable edema. I did start him on Lasix. He is tolerating this well. Will continue to follow it to see how it does in regards to his margaret ma. His BNP was negative for any concerns of congestive heart failure. His kidney function is appropriate for age. He does have low protein levels which could be leading to some of the lack of oncotic pressure and thus increasing edema. I will start him on protein supplementation. Subjective Subjective Interval history since last seen: Dwight reports be doing fairly well. He has had only minimal amount of pain and did take 1 pain pill. He was able to work with physical therapy although noted some bleeding on his dressing when he returned. He felt that walking went well and overall feels encouraged. He still feels somewhat unsteady on the leg but was happy with his session physical therapy and looks forward to doing stairs later today. He denies any chest pain or shortness of breath. His vital signs have been stable. Labs show some drop in his hemoglobin, 12.5 to 9.5, but no other significant abnormalities. He also was noted to have some increased glucose level which prompted an order of A1c as well as before every meal glucose checks. Exam Narrative Exam Narrative: Sitting up in the chair. No acute distress. Alert and orient x 3. Evaluation of the left leg shows notable amount of sanguinous discharge. The Julio wrap and Mepilex dressing is removed. There appear to be 2 primary defects of the wound starting the superior pole patella for approximate 3 to 4 mm and then about 3 cm proximal to the patella again about 3-4 mm. There is abundant amount of sanguinous discharge which I am able to evacuate from the proximal aspect. This is evacuated completely. There is then minimal drainage. The wound is cleaned and prepped with Betadine. I then use a small amount of skin glue to reinforce these areas. I then provided a pressure dressing to the left knee utilizing gauze, ABD, Kerlix, Julio wrap. He has intact ankle dorsiflexion plantarflexion. He has sensation intact to light touch of the deep and superficial peroneal nerve and tibial nerve. Objective Last Vital Signs Temp 36.8 C 04/27/24 07:37 Pulse 85 04/27/24 07:37 Resp 16 04/27/24 07:37 BP 136/70 04/27/24 07:37 Pulse Ox 97 04/27/24 07:37 Laboratory Results - last 24 hr 04/27/24 04/27/24 06:20 09:05 WBC 10.65 RBC 3.05 L Hgb 9.5 L Hct 29.1 L MCV 95 MCH 31.1 MCHC 32.6 RDW 15.0 H Plt Count 248 MPV 9.2 Sodium 136 Potassium 4.4 Chloride 102 Carbon Dioxide 27.3 Anion Gap 6.7 BUN 16 Creatinine 1.1 Est GFR (CKD-EPI 2020) 73.58 Glucose 160 H Hemoglobin A1c 5.4 Calcium 8.1 L Total Bilirubin 0.19 L AST 19 ALT 13 L Alkaline Phosphatase 113 NT-Pro-B Natriuret Pep 251 Total Protein 6.1 L Albumin 2.6 L Add-On Test Request DONE PAWSS Have you Been Recently Intoxicated or Drunk Within the Last 30 days?: Yes Have you Ever Experienced Previous Episodes of Alcohol Withdrawal?: Yes Have you ever Experienced Withdrawal Seizures?: No Have you ever Experienced Delirium Tremens(DT)s?: No Have you ever undergone Alcohol Rehabilitation Treatment (i.e, inpt ot outpatient treatment programs)?: Yes Have you ever Experienced Blackouts?: Yes Have you ever Combined Alcohol with other Downers within the last 90 days?: No Have you ever Combined Alcohol with any other Substance of Abuse during the last 90 days?: No Positive Blood Alcohol level on Presentation? [PCS.BAL]: No Evidence of Increased Autonomic Activity (i.e. HR>120, tremor, sweating, agitation, nausea)?: No Result: 4 Time Spent with Patient Time Spent with Patient: 25-34 minutes Time was spent: preparing to see the patient(eg.review tests), obtaining and/or reviewing separately otained hiistory, ordering medications,tests, procedures, indepentently interpreting results and counseling the patient
[2024-04-27] MEDS: Normal Saline Flush 10 ML SYR IVP (13:07)
--- NOTE | 2024-04-27 13:07 | CHAPLAIN ---
Mitchell was sitting up in a chair with his leg elevated and his left knee wrapped up. He said he walked once already today and he'll be going again soon. If he can do stairs later today, he said he may go home today.
--- NOTE | 2024-04-27 14:48 | PTTR_ITS ---
PT Notes Visit Reasons: Infection L TKR Physical Therapy Inpatient Initial Treatment Note Date: 04/27/2024 Precautions: Fall. Standard. WBAT on L LE. Subjective: Minimal pain in L knee. Hoping to go home tomorrow if cleared. Said that he had a little bleeding and needed to be attended to by surgeon to close and dress wound. Objective: General Observation: Resting in bed. LYNDA wraps to left LE. Cryocuff to left knee. TEDS to R leg/foot. Mental Status: Alert and oriented as to person, place, time, and purpose. Able to pay attention, focus, and respond appropriately. Pain: 2-3/10 in the L knee Vital Signs: Closely monitored by nursing staff Bed Mobility/Transfers: Minimal cueing provided for use of B hands as needed for support, movement sequence, AD management, and posture to reduce fall risk and minimize pain report Supine to sit stand by assist to left LE Sit to stand stand by assist using FWW Stand to sit stand by assist using FWW Bed to reclining chair stand by assist using FWW Gait: Facilitated safe and correct performance of level surface ambulation covering a distance 150 feet + 300 feet using front-wheeled walker with step to gait pattern requiring stand by assist. Step-to gait pattern. Minimal cues given for posture to ensure equal distribution of weight onto feet and walker. Stairs: Guided patient with correct and safe negotiation of 6 x 4-inch steps and 4 x 6- inch steps while holding otno B rails with step to gait pattern requiring minimal verbal cueing to increase L knee flexion during each ascent to decrase L hip hiking to clear foot off each step Balance: Static Sitting: Normal Dynamic Sitting: Good Static Standing: Fair Dynamic Standing: Fair ASSESSMENT: Requires the use of FWW for all mobility ADL performance to maximize indepdence and reduce fall risk. Good quad activation on L. Patient presents with clinical signs and symptoms consistent with current/admitting diagnoses that have resulted to mobility limitations, gait instability, generalized weakness, and overall ADL decline as demonstrated by the following impairment level findings: 1. Decreased strength to L hip and knee major muscle groups 2. Impaired sitting/standing balance 3. Impaired activity tolerance 4. Limitation of joint range of motion in extension/flexion Impairments are contributing to the following functional limitations: 1. Decline in bed mobility skills 2. Decline in transfer skills 3. Difficulty with ambulation without assistive device 4. Increased completion time for mobility ADL performance 5. Increased risk for falls 6. Difficulty with managing steps alone safely Plan of Care/Treatment Plan: 1-2x/day, 7 days/week x 1 week. Plan of care has been reviewed with the KNOWLEDGE MANAGEMENT CONSULTANT providing the service under Physical Therapy direction. Initiate Physical Therapy intervention for pain management as needed, strengthening, bed mobility, transfers, gait, stairs, balance training, and use of assistive device. --Educate and train on HEP, train for stairs, and work on increasing safety of ambulation using FWW and knee immobilizer to L. DISCHARGE RECOMMENDATIONS: [] Home with no services [] [] Home with services [specify] [X Home when medically cleared by orthopedic surgeon. Recommend outpatient PT services in order to optimize functional mobility outcomes and facilitate return to independent community ambulation without an assistive device. [] Home with outpatient PT. [] SNF for continued rehabilitation [] [] Shelter Care [] [] SNF versus LTC based on ability to participate and progress [] TREATMENT CODE/TIME: 16193 x 17 minutes for 1 unit (14:48?14:05).
[2024-04-27 15:12] VITALS: BP 127/75; PULSE 98; RESP 18; TEMP 36.8; O2SAT 98
[2024-04-27 19:13] VITALS: BP 106/61; PULSE 89; RESP 18; TEMP 37; O2SAT 96
[2024-04-27] MEDS: Gabapentin 300 MG CAP PO (19:39)
[2024-04-28 00:12] VITALS: BP 125/62; PULSE 79; RESP 18; TEMP 35.6; O2SAT 92
[2024-04-28 03:59] VITALS: BP 120/51; PULSE 80; RESP 18; TEMP 36.3; O2SAT 96
[2024-04-28] MEDS: ceFAZolin 1 GM/50 ML BAG IVPB (05:40)
--- NOTE | 2024-04-28 07:00 | DSE_ITS ---
Date of service: 04/28/24 Time of Service: 12:57 DS: Diagnosis Discharge Diagnosis (1) Infection of prosthetic left knee joint: Status: Resolved (2) Peripheral edema: Status: Acute Discharge Plan Disposition Patient Disposition: Home Condition: Good Discharge Details Reason For Visit: Infection L TKR Admit Date/Time: 04/26/24 10:06 Admit Provider: Js Michel Attending Provider: Js Michel Primary Care Provider: Dominga Silver Hospital Course Hospital Course: Patient was admitted to the medical/surgical floor following the procedure. The surgery was tolerated well without any notable medical, surgical, or anesthetic complications. Mobilization began postoperatively. He was voiding spontaneously. Vitals were stable. Physical therapy worked with the patient and was cleared for discharge home. No acute medical issues. Pain was controlled on oral regimen. Home Meds and New Rx's Prescriptions: New celecoxib 200 mg capsule 200 mg PO BID PRN (Reason: pain) Qty: 60 1RF aspirin 81 mg tablet,delayed release (DR/EC) 81 mg PO BID Qty: 60 0RF cefadroxil 500 mg capsule 500 mg PO BID Qty: 14 0RF docusate sodium [Colace] 100 mg capsule 100 mg PO BID PRNQty: 10 0RF oxycodone 5 mg tablet 5 mg PO Q4H PRNQty: 18 0RF Continued acetaminophen 500 mg tablet 1,000 mg PO Q8H PRN (Reason: pain) Qty: 90 3RF Discontinued ACETAMINOPHEN 650 MG SUPP.RECT 650 mg RC PRN ibuprofen 800 MG tablet 800 mg PO PRN glucosamine sulfate 2KCl 1,000 MG tablet 1,000 mg PO TID Qty: 1 celecoxib 200 mg capsule See Rx Instructions .ROUTE .COMPLEX Qty: 60 0RF Dose Instruction: TAKE 1 CAPSULE BY MOUTH TWICE DAILY NEEDED FOR PAIN Patient Comments: Pt states none left Rx Instructions: TAKE 1 CAPSULE BY MOUTH TWICE DAILY NEEDED FOR PAIN No Action pantoprazole 40 mg tablet,delayed release (DR/EC) 40 mg PO DAILY Qty: 30 0RF furosemide 40 mg tablet See Rx Instructions .ROUTE .COMPLEX Qty: 90 0RF Dose Instruction: TAKE 1 TABLET BY MOUTH DAILY Rx Instructions: TAKE 1 TABLET BY MOUTH DAILY Discharge Instructions Additional Instructions: Total Knee Discharge Instructions Activity: The most important activity is to walk and to work on gentle motion (both flexion and extension). You should try to take short walks a few times a day. It is important that when resting you work on keeping the knee straight. Avoid putting a pillow behind the knee as this will encourage flexion. Work on range of motion exercises as provided by Physical Therapy. - Start outpatient physical therapy within 2 weeks. - You should wear the PEGGY hose on both legs for 2 weeks. You may remove these at night. You may also use any compression sock in place of the PEGGY hose. - Utilize [employer] to review exercises, see videos on exercises and obtain basic information pertaining to your surgery and your recovery. Dressing: Leave the Julio wrap until Wednesday and put on the PEGGY stocking given to you from the hospital. Keep the surgical dressing (underneath the JULIO wrap) in place for at least one week. After the first week it may be removed and replaced with light gauze and tape or nothing. The wound and dressing may get wet after 3 days but avoid soaking the dressing or otherwise it will need to be changed. Many people prefer covering the dressing with cling wrap (saran wrap) to minimize it from getting soaked. If it gets wet, just pat dry. If it starts to peel off then it will need to be changed. Medications: - You should take Tylenol and anti-inflammatory Celebrex as your primary pain control medications. If the Celebrex is too expensive or not covered, please call the office for another alternative (Advil/Ibuprofen or Naproxen/Aleve) - You have been prescribed a stronger pain medication Oxycodone for breakthrough pain, take as needed as prescribed. - You have also been prescribed a stomach acid reduction agent Pantoprozole to help reduce stomach acid and reflux. - You will be taking Aspirin 81mg twice a day for DVT prevention unless instructed otherwise. - You have been prescribed Furosemide to help with swelling in your legs. You will need to check some labs in 2 weeks to make sure you are tolerating this medication. - You also have an antibiotic you will take for 2 weeks. - If you have constipation you should take Colace or Miralax (both over-the-c ounter). It takes most people 3-4 days to have a bowel movement. Follow-up: 2 weeks If you have any acute concerns or questions, please do not hesitate to contact the office at [phone]. You may contact Dr. Michel with any questions after hours through the hospital at [phone] or on his cell phone at [phone]. Stand Alone Forms: Nursing Discharge Form Referrals: Dominga Silver [Primary Care Provider] - (Please call to schedule a hospital discharge follow up appt, to be seen in 1-2 weeks. ) Js Michel MD [ [facility] STAFF PHYSICIAN] - 05/11/24 9:45 am Activity:: Activity as Tolerated Equipment/Supplies:: Walker Diet:: As Tolerated Discharge Orders Discharge Orders: Discharge Order (Routine); Ordered 04/28/24 Ordered By: Chuck Donnelly Discharge Data Discharge Date/Time-TO BE ENTERED AT DEPARTURE: 04/28/24 15:36 DS: Summary Time Spent with Patient providing and/or coordinating discharge services: Less than 30 minutes Status at Discharge Functional status at discharge: uses cane/walker Overall status at discharge: patient is progressing back to baseline Mental Status: mental status grossly normal Speech and Movement: speech and movement normal Mood: congruent mood Affect: normal affect Quality:SDOH Health Related Social Needs: No Data to Display Exam Psych Mental Status: mental status grossly normal Speech and Movement: speech and movement normal Mood: congruent mood Affect: normal affect DS: Data Vitals/I&O Vitals and I&O: Vital Signs Temperature 36.3 C L 04/28/24 03:59 Temperature Source Tympanic 04/28/24 03:59 Pulse 80 04/28/24 03:59 Pulse Rhythm Regular 04/26/24 08:22 Pulse 88 04/26/24 17:06 Respiratory Rate 18 04/28/24 03:59 Respiratory Depth Normal 04/26/24 08:22 Blood Pressure 120/51 L 04/28/24 03:59 Blood Pressure Mean 95 04/26/24 17:05 Blood Pressure Position Supine 04/26/24 09:36 Pulse Oximetry 96 04/28/24 03:59 Respiratory End-tidal CO2 36 04/26/24 17:01 Oxygen Delivery Method Room Air 04/28/24 03:59 Oxygen Flow Rate 0 04/28/24 03:59 Pain Level 0 04/28/24 03:59 Intake & Output 04/27/24 04/27/24 04/28/24 11:59 23:59 11:59 Intake Total 250 / 600 350 / 600 Output Total 600 / 600 925 / 925 Balance 250 / 0 -250 / 0 -925 / -925 Intake: IV 10 / 120 110 / 120 Oral 240 / 480 240 / 480 Output: Urine 600 / 600 925 / 925 Other: Urine Color Yellow Yellow Yellow Urine Appearance Clear Clear Clear Urine Odor None None Voiding Methods Urinal Urinal Urinal Data Completed and Pending Labs on day of discharge: Labs from last 24 hours 04/28/24 04/27/24 04/27/24 05:35 09:05 06:20 WBC Pending RBC Pending Hgb Pending Hct Pending MCV Pending MCH Pending MCHC Pending RDW Pending Plt Count Pending MPV Pending Sodium Pending 136 Potassium Pending 4.4 Chloride Pending 102 Carbon Dioxide Pending 27.3 Anion Gap Pending 6.7 BUN Pending 16 Creatinine Pending 1.1 Est GFR (CKD-EPI 2020) Pending 73.58 Glucose Pending 160 H Hemoglobin A1c 5.4 Calcium Pending 8.1 L Total Bilirubin 0.19 L AST 19 ALT 13 L Alkaline Phosphatase 113 NT-Pro-B Natriuret Pep 251 Total Protein 6.1 L Albumin 2.6 L Add-On Test Request DONE PFS All Active Problems (Updated 04/29/24 @ 00:01 by MICHELLE PATINO) Peripheral edema (Acute) Tinnitus (Acute) Deafness in right ear (Acute) Osteoarthritis of right knee (Acute) DEPO MEDROL 03/16/24 Medical History Alcoholic hepatitis Neuropathy BPH (benign prostatic hyperplasia) Anemia Alcohol abuse Actinic keratosis Gastroesophageal reflux disease Surgical History History of arthroscopic knee surgery History of carpal tunnel release History of prostate surgery Replacement of total knee joint (09/19/12) LEFT SIDE Social History Smoking/Tobacco Use Status: Former Tobacco Use Quit Date: 08/23/03 Smoking risk assessment performed?: Yes Alcohol Intake: current Alcohol Intake frequency: 0-2 drinks per day Alcohol type: hard liquor Drug use: Never Substance use type: does not use Housing: house Do you feel safe at home: Yes Do you feel safe in your relationship?: Yes Time Spent with Patient Time Spent with Patient: 45-69 minutes Time was spent: preparing to see the patient(eg.review tests), obtaining and/or reviewing separately otained hiistory, ordering medications,tests, procedures, indepentently interpreting results and counseling the patient
[2024-04-28 07:24] LABS: HCT 27.9 % (40.0-50.0); HGB 8.8 g/dL (13.5-17.5); MCHC 31.5 % (32.0-36.0); MCV 98 fL (80-95); MPV 9.2 fL (8.0-11.0); Platelet Count 202 10^3/uL (130-400); RBC 2.84 10^6/uL (4.36-5.78); RDW 15.3 % (11.8-14.1); RDW-SD 54.7 fL; WBC 7.17 10^3/uL (4.4-10.8)
--- NOTE | 2024-04-28 07:42 | PT.INTREAT ---
PT Notes Visit Reasons: Infection L TKR Physical Therapy Inpatient Treatment Note Date: 04/28/2024 Precautions: Fall. Standard. WBAT on L LE. Subjective: 1/10 pain in the L knee throughout session. Going home after lunch today. Objective: General Observation: Resting in bed. LYNDA wraps to left LE. TEDS to R leg/foot. Mental Status: Alert and oriented as to person, place, time, and purpose. Able to pay attention, focus, and respond appropriately. Pain: As above Vital Signs: Closely monitored by nursing staff Bed Mobility/Transfers: Minimal cueing provided for use of B hands as needed for support, movement sequence, AD management, and posture to reduce fall risk and minimize pain report Sit to stand supervision Stand to sit supervision Bed to reclining chair supervision Gait: Facilitated safe and correct performance of level surface ambulation covering a distance 600 feet using bilateral axillary crutches with step-to gait pattern requiring stand by assist. Step-to gait pattern. Minimal cues given for posture to ensure equal distribution of weight onto feet and walker. Stairs: reviewed safe technique with correct and safe negotiation of 6 x 4-inch steps and 4 x 6-inch steps while holding onto B rails with step-to gait pattern requiring minimal verbal cueing to increase L knee flexion during each ascent to decrease L hip hiking to clear foot off each step Balance: Static Sitting: Normal Dynamic Sitting: Good Static Standing: Fair Dynamic Standing: Fair ASSESSMENT: Requires the use of FWW for all mobility ADL performance to maximize indepdence and reduce fall risk. Good quad activation on L. With good mastery of HEP. DISCHARGE RECOMMENDATIONS: [] Home with no services [] [] Home with services [specify] [X Home when medically cleared by orthopedic surgeon. Recommend outpatient PT services in order to optimize functional mobility outcomes and facilitate return to independent community ambulation without an assistive device. [] Home with outpatient PT. [] SNF for continued rehabilitation [] [] Nursing Home Care [] [] SNF versus LTC based on ability to participate and progress [] TREATMENT CODE/TIME: 53075 x 23 minutes for 2 units (07:42?10:05).
[2024-04-28] MEDS: Aspirin E.C. 81 MG TABEC PO (07:46)
[2024-04-28] MEDS: Furosemide 40 MG TAB PO (07:47)
[2024-04-28] MEDS: Celecoxib 200 MG CAP PO (07:47)
[2024-04-28] MEDS: Pantoprazole 40 MG TABCR PO (07:47)
[2024-04-28 07:58] LABS: Anion Gap 5.7 mmol/L (3-11); BUN 20 mg/dL (7-18); CO2 30.3 mmol/L (21.0-32.0); CREATININE 1.1 mg/dL (0.70-1.30); Calcium 7.9 mg/dL (8.5-10.1); Chloride 102 mmol/L (98-107); Estimated GFR 73.58 (mL/min/1.73m2); Glucose 133 mg/dL (74-106); Potassium 3.9 mmol/L (3.5-5.1); Sodium 138 mmol/L (136-145)
[2024-04-28] MEDS: oxyCODONE 5 MG TAB PO (08:02)
[2024-04-28 08:08] VITALS: BP 134/68; PULSE 85; RESP 18; TEMP 36.8; O2SAT 96
[2024-04-28 11:52] VITALS: BP 141/85; PULSE 79; RESP 18; TEMP 36.6; O2SAT 98
--- NOTE | 2024-04-28 12:17 | PDOC.CMDIS ---
Date of service: 04/28/24 Time of Service: 12:18 LACE Index Scoring Tool Questions: Length of Stay (in days): 2 Was the patient admitted via the E.D.?: No E.D. Visits: 0 Answers: Total Score: 2 Risk of Readmission: Low Risk Care Management Discharge Plan Reason for Hospitalization: Knee Infection Discharge Plan: Discharge home via private vehicle with family. Follow up with community providers and her discharge plan of care as instructed. Follow up with Dr. Michel on 05/11/24, as previously scheduled. Patient/Family Education Needs: Review discharge instructions, limitations, medications and plan to follow up with community providers. Discuss ask me three. SDOH Health Related Social Needs: No Data to Display
== END 2024-04-28 15:36 | disposition home or self-care (01) | DRG 467 ==
LOC: MS 17:24
PROVIDERS: Admitting Provider Student in an Organized Health Care Education/Training Program; PCP Nurse Practitioner Family; Visit Provider Student in an Organized Health Care Education/Training Program
PROC: 0SPD0JZ Removal of Synthetic Substitute from Left Knee Joint, Open Approach (ICD-10-PCS; CPT 27487; principal; 2024-04-26 11:30)
DX: T84.54XA Infection and inflammatory reaction due to internal left knee prosthesis, initial encounter (principal); S82.022A Displaced longitudinal fracture of left patella, initial encounter for closed fracture; F10.10 Alcohol abuse, uncomplicated; K21.9 Gastro-esophageal reflux disease without esophagitis; G62.9 Polyneuropathy, unspecified; N40.0 Benign prostatic hyperplasia without lower urinary tract symptoms; D64.9 Anemia, unspecified; K70.10 Alcoholic hepatitis without ascites; Z87.891 Personal history of nicotine dependence; R60.0 Localized edema; M97.12XA Periprosthetic fracture around internal prosthetic left knee joint, initial encounter; X58.XXXA Exposure to other specified factors, initial encounter
CPT/HCPCS: 27447; 36415; 76942; 80048; 80053; 85027; 97162; 97530; 73560; 83036; 83880; C1776; J0665; J0690; J1100; J2001; J2250; J2371; J2405; J2704; J3010

== ENCOUNTER 2024-05-11 12:01 | Outpatient (CLI) | payer MEDICARE, SELFPAY ==
--- NOTE | 2024-05-11 10:45 | DI.RAD_ITS ---
Exam(s) XR KNEE LT 2V AP,LAT EXAM: XR KNEE LT 2V AP,LAT INDICATION: post op. COMPARISON: CR XR KNEE LT 2V AP,LAT from 04/26/2024 TECHNIQUE: 2D digital imaging was performed. Two views. FINDINGS: There has been no change in the alignment of the revised total knee prosthesis. No abnormal surround ing bony lucencies. Some joint fluid anterior soft tissue swelling remains present. DATA REPOSITORY: RADIATION DOSE DELIVERED:
== END 2024-05-11 12:02 | disposition home or self-care (01) ==
LOC: DIORS 12:01
PROVIDERS: PCP Nurse Practitioner Family; Referring Provider Nurse Practitioner Family; Visit Provider Student in an Organized Health Care Education/Training Program
DX: Z96.652 Presence of left artificial knee joint (principal); Z47.1 Aftercare following joint replacement surgery
CPT/HCPCS: 73560

== ENCOUNTER 2024-06-08 10:28 | Outpatient (REF) | payer MEDICARE, SELFPAY ==
[2024-06-08 10:26] LABS: Source Synovial
[2024-06-08 10:27] LABS: Clarity Cloudy; Mononuclear Cells 85 %; Nucleated Cells 663 uL (0); Polynuclear Cells 15 %
== END 2024-06-08 10:29 | disposition home or self-care (01) ==
LOC: LBN 10:28
PROVIDERS: Visit Provider Student in an Organized Health Care Education/Training Program
DX: Z96.652 Presence of left artificial knee joint (principal)
CPT/HCPCS: 87070; 87205; 89051

== ENCOUNTER 2024-06-08 11:30 | Outpatient (CLI) | payer MEDICARE, SELFPAY ==
--- NOTE | 2024-06-08 09:35 | DI.RAD_ITS ---
Exam(s) XR KNEE LT 2V AP,LAT EXAM: XR KNEE LT 2V AP,LAT CLINICAL HISTORY: L TKR. TECHNIQUE: 2D digital imaging was performed. Two images were obtained. AP and lateral views were ob tained. COMPARISON: CR XR KNEE LT 2V AP,LAT from 05/11/2024 FINDINGS: BONES: There are stable post operative changes of a left total knee replacement present. No fracture or dislocation. JOINTS: The orthopedic hardware is in good position. No evidence of hardware loosening. SOFT TISSUE: Normal. IMPRESSION: Stable left total knee replacement. DATA REPOSITORY: RADIATION DOSE DELIVERED:
== END 2024-06-08 11:31 | disposition home or self-care (01) ==
LOC: DIORS 11:30
PROVIDERS: Visit Provider Student in an Organized Health Care Education/Training Program
DX: Z96.652 Presence of left artificial knee joint (principal)
CPT/HCPCS: 73560

== ENCOUNTER 2024-06-21 09:23 | Day surgery (SDC) | payer MEDICARE, SELFPAY ==
--- NOTE | 2024-06-21 | DI.RAD_ITS ---
Exam(s) XR KNEE RT 2V AP,LAT EXAM: XR KNEE RT 2V AP,LAT CLINICAL HISTORY: pre TKA eval. TECHNIQUE: 2D digital imaging was performed. Three views. COMPARISON: None FINDINGS: BONES: No acute fracture is present. No bony destructive lesion is seen. JOINTS: There is severe narrowing of the medial femoral tibial joint space with a [id number] appear ance. Periarticular spurring and sclerosis. Varus angulation with widening of the lateral femoral t ibial joint space. Mild spurring at the articular aspect of the patella. Degenerative changes also present at proximal tibial fibular joint. A small joint effusion is seen. SOFT TISSUE: Normal. IMPRESSION: Severe degenerative changes of the medial femoral tibial joint DATA REPOSITORY: RADIATION DOSE DELIVERED:
--- NOTE | 2024-06-21 09:30 | PDOC.DSDIS_ITS ---
Discharge Plan Disposition Condition: Good Condition: Good Discharge Details Reason For Visit: Right knee DJD Attending Provider: Js Michel Primary Care Provider: Jake Santana Home Meds and New Rx's Prescriptions: New celecoxib [Celebrex] 200 mg capsule 200 mg PO BID PRNQty: 60 0RF Rx Instructions: Take one tablet twice daily for pain and inflammation aspirin 81 mg tablet,delayed release (DR/EC) 81 mg PO BID 30 Days Qty: 60 0RF acetaminophen 500 mg tablet 1,000 mg PO Q8H PRN Qty: 90 0RF Rx Instructions: Take two tablets up to every 8 hours as needed for pain pantoprazole 40 mg tablet,delayed release (DR/EC) 40 mg PO DAILY Qty: 14 0RF dexamethasone 4 mg tablet 4 mg PO DAILY Qty: 2 0RF Rx Instructions: Take one tablet once daily for two days docusate sodium [Colace] 100 mg capsule 100 mg PO BID Qty: 30 0RF gabapentin 300 mg capsule 300 mg PO QHS Qty: 14 0RF Rx Instructions: Take one tablet at bedtime oxycodone 5 mg tablet 5 mg PO Q4H PRNQty: 18 0RF Rx Instructions: Take one tablet up to every 4 hours as needed for severe postoperative pain Continued furosemide 40 mg tablet See Rx Instructions .ROUTE .COMPLEX Qty: 90 0RF Dose Instruction: TAKE 1 TABLET BY MOUTH DAILY Rx Instructions: TAKE 1 TABLET BY MOUTH DAILY Discontinued pantoprazole 40 mg tablet,delayed release (DR/EC) See Rx Instructions .ROUTE .COMPLEX Qty: 90 0RF Dose Instruction: TAKE 1 TABLET BY MOUTH DAILY Rx Instructions: TAKE 1 TABLET BY MOUTH DAILY celecoxib 200 mg capsule 200 mg PO BID PRN (Reason: pain) Qty: 60 1RF docusate sodium [Colace] 100 mg capsule 100 mg PO BID PRNQty: 10 0RF acetaminophen 500 mg tablet 1,000 mg PO Q8H PRN (Reason: pain) Qty: 90 3RF Discharge Instructions Additional Instructions: Total Knee Discharge Instructions Activity: The most important activity is to walk and to work on gentle motion (both flexion and extension). You should try to take short walks a few times a day. It is important that when resting you work on keeping the knee straight. Avoid putting a pillow behind the knee as this will encourage flexion. Work on range of motion exercises as provided by Physical Therapy. - Start outpatient physical therapy within 2 weeks. - You should wear the PEGGY hose on both legs for 2 weeks. You may remove these at night. You may also use any compression sock in place of the PEGGY hose. - Utilize [employer] to review exercises, see videos on exercises and obtain basic information pertaining to your surgery and your recovery. Dressing: Remove the Julio wrap by 2 days after your surgery and put on the PEGGY stocking given to you from the hospital. Keep the surgical dressing (underneath the JULIO wrap) in place for at least one week. After the first week it may be removed and replaced with light gauze and tape or nothing. The wound and dressing may get wet after 3 days but avoid soaking the dressing or otherwise it will need to be changed. Many people prefer covering the dressing with cling wrap (saran wrap) to minimize it from getting soaked. If it gets wet, just pat dry. If it starts to peel off then it will need to be changed. Medications: - You should take Tylenol and anti-inflammatory Celebrex as your primary pain control medications. If the Celebrex is too expensive or not covered, please call the office for another alternative (Advil/Ibuprofen or Naproxen/Aleve) - You have been prescribed a stronger pain medication Oxycodone for breakthrough pain, take as needed as prescribed. - You have also been prescribed a stomach acid reduction agent Pantoprozole to help reduce stomach acid and reflux. - You have been prescribed Gabapentin to take at night for restlessness and nerve pain. - You will be taking Aspirin 81mg twice a day for DVT prevention unless instructed otherwise. - You have also been prescribed Decadron to take to control post-operative nausea and pain. You will start this tomorrow. - If you have constipation you should take Colace (which has been prescribed) or Miralax (which is available [id number]). It takes most people 3-4 days to have a bowel movement. Follow-up: 2 weeks If you have any acute concerns or questions, please do not hesitate to contact the office at [phone]. You may contact Dr. Michel with any questions after hours through the hospital at [phone] or on his cell phone at [phone]. Stand Alone Forms: Anesthesia Discharge Inst., Anes.Nerve Block Instructions, Lucia Ryan ([facility]) Referrals: Js Michel MD [ [facility] STAFF PHYSICIAN] - 07/07/24 10:45 am Equipment/Supplies: Walker Activity:: Elevate Remove Dressings/Wound Care:: Do Not Remove Shower/Bathe:: Cover Activity:: Activity as Tolerated Equipment/Supplies:: Walker Diet:: As Tolerated
--- NOTE | 2024-06-21 09:54 | W.PREOPHP ---
Assessment and Plan Assessment and plan (1) Osteoarthritis of right knee: Status: Acute Assessment and plan: Dwight is a 68-year-old male who has known arthritis about the right knee. Unfortunately, updated x-rays were not performed at the previous visit need to be performed today before surgery. He is status post two-stage revision of his left knee which is doing well. It was aspirated for infection is negative. 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 I once again discussed the knee replacement with Dwight. We reviewed the possible complications of knee replacement. These include but are not limited to bleeding, infection, pain, stiffness, weakness, damage to nerves, damage to vessels, damage to muscle and tendon, fracture, leg length inequality, wound healing complications, instability, component loosening, and blood clot. Questions were answered. I again expressed that this is a surgery to improve functional quality of life. After a review of the presented information and risks, Dwight desired to proceed. History of Present Illness Narrative: Dwight presents today for his right knee primarily. He has been seen previously for a left knee replacement which became loose and infected. He is now status post two-stage revision. He is mostly bothered by his right knee. At the previous appointment for his right knee he was having some increasing left knee pain. Aspiration of the left knee was performed which was negative for any infection. Overall his right knee is most bothersome. He reports a varus deformity. He reports gait abnormalities. He has pain mostly of the medial aspect of the right knee. Review of Systems All systems reviewed & are unremarkable except as noted in HPI and below PFSH All Active Problems History of revision of total replacement of left knee joint (Acute) Aspiration: 06/08/2024 Peripheral edema (Acute) Tinnitus (Acute) Deafness in right ear (Acute) Osteoarthritis of right knee (Acute) DEPO MEDROL 03/16/24 Medical History Alcoholic hepatitis Neuropathy BPH (benign prostatic hyperplasia) Anemia Alcohol abuse Actinic keratosis Gastroesophageal reflux disease Surgical History History of arthroscopic knee surgery History of carpal tunnel release History of prostate surgery Replacement of total knee joint (09/19/12) LEFT SIDE Social History Smoking/Tobacco Use Status: Former Tobacco Use Quit Date: 08/23/03 Smoking risk assessment performed?: Yes Alcohol Intake: current Alcohol Intake frequency: 0-2 drinks per day Alcohol type: hard liquor Drug use: Never Substance use type: does not use Housing: house Do you feel safe at home: Yes Do you feel safe in your relationship?: Yes Meds Allergies and Home Medications Allergies Allergy/AdvReac Type Severity Reaction Status Date / Time No Known Allergies Allergy Verified 06/20/24 11:09 Home Medications ?Medication ?Instructions ?Recorded ?Confirmed ?Type furosemide 40 mg tablet See Rx Instructions .Route 06/08/24 06/20/24 Rx .COMPLEX #90 tabs acetaminophen 500 mg tablet 1,000 mg (2 x 500 mg) PO Q8H PRN 06/21/24 Rx pain #90 tabs aspirin 81 mg tablet,delayed 81 mg PO BID 30 days #60 tabs 06/21/24 Rx release celecoxib 200 mg capsule (Celebrex) 200 mg PO BID PRN #60 caps 06/21/24 Rx dexamethasone 4 mg tablet 4 mg PO DAILY #2 tabs 06/21/24 Rx docusate sodium 100 mg capsule 100 mg PO BID #30 caps 06/21/24 Rx (Colace) gabapentin 300 mg capsule 300 mg PO QHS #14 caps 06/21/24 Rx oxycodone 5 mg tablet 5 mg PO Q4H PRN #18 tabs 06/21/24 Rx pantoprazole 40 mg tablet,delayed 40 mg PO DAILY #14 tabs 06/21/24 Rx release Exam Const General: cooperative, healthy appearing, comfortable and no acute distress Resp Effort & Inspection: normal respiratory effort Auscultation: clear to auscultation bilaterally Cardio Rate: regular rate Rhythm: regular rhythm Extrem Other: Evaluation of the right leg shows no overlying skin changes or masses. The edema in the right leg seems to be improved from where I saw him previously, 1+ pitting edema. He has range of motion from 5 to 110 degrees. Exquisite pain over the medial joint line. Mild varus deformity.
[2024-06-21 10:06] VITALS: BP 168/75; PULSE 92; RESP 20; TEMP 37; O2SAT 99
[2024-06-21] MEDS: Acetaminophen 500 MG TAB 1000 MG PO (10:19)
[2024-06-21] MEDS: Gabapentin 300 MG CAP PO (10:20)
[2024-06-21] MEDS: Celecoxib 200 MG CAP 400 MG PO (10:20)
--- NOTE | 2024-06-21 10:41 | W.ANESPRE ---
General Info Date of Service Date Performed: 06/21/24 Height: 6 ft Weight: 113.2 kg Body Mass Index (BMI): 33.8 Surgical Procedure: Operation Date: 06/21/24 11:55 Proposed Procedure Side Surgeon p Knee Total Arthroplasty, Cementless CR Right Js Michel MD Meds Allergies and Home Medications Allergies Allergy/AdvReac Type Severity Reaction Status Date / Time No Known Allergies Allergy Verified 06/20/24 11:09 Home Medication ?Medication ?Instructions ?Recorded furosemide 40 mg tablet See Rx Instructions .Route 06/08/24 .COMPLEX #90 tabs acetaminophen 500 mg tablet 1,000 mg (2 x 500 mg) PO Q8H PRN 06/21/24 pain #90 tabs celecoxib 200 mg capsule (Celebrex) 200 mg PO BID PRN #60 caps 06/21/24 docusate sodium 100 mg capsule 100 mg PO BID #30 caps 06/21/24 (Colace) gabapentin 300 mg capsule 300 mg PO QHS #14 caps 06/21/24 tramadol 100 mg tablet 100 mg PO TID PRN pain #30 tabs 06/21/24 Current Visit Medications: Current Medications Generic Name Dose Route Start Last Admin Trade Name Freq PRN Reason Stop Dose Admin Acetaminophen 1,000 mg 06/21/24 06:00 06/21/24 10:19 Acetaminophen 500 Mg Tab PO 06/21/24 18:00 1,000 mg PREOP JOSEPH Administration Celecoxib 400 mg 06/21/24 06:00 06/21/24 10:20 Celecoxib 200 Mg Cap PO 06/21/24 18:00 400 mg PREOP JOSEPH Administration Gabapentin 300 mg 06/21/24 06:00 06/21/24 10:20 Gabapentin 300 Mg Cap PO 06/21/24 18:00 300 mg PREOP JOSEPH Administration Hydromorphone HCl 0.5 mg 06/21/24 07:11 Hydromorphone 1 Mg/Ml Syr IVP 07/21/24 07:10 Q2H PRN PRN Cefazolin Sodium/Dextrose 2 gm in 50 mls @ 100 mls/hr 06/21/24 06:00 Ancef Duplex IVPB 06/21/24 18:00 PREOP JOSEPH Tranexamic Acid/Sodium Chloride 1,000 mg in 100 mls @ 600 mls/hr 06/21/24 06:00 IVPB 06/21/24 18:00 PREOP JOSEPH Ringer's Solution 1,000 mls @ 80 mls/hr 06/21/24 06:00 IV 07/21/24 23:59 INFUSION JOSEPH Cefazolin Sodium/Dextrose 1 gm in 50 mls @ 100 mls/hr 06/21/24 08:00 Ancef Duplex IVPB 06/22/24 00:29 Q8H JOSEPH IV Miscellaneous Supplies 1 each 06/21/24 06:00 Iv Access IV 07/20/24 23:59 DIRECTED JOSEPH Oxycodone HCl 0 mg 06/21/24 07:11 Oxycodone 5 Mg Tab PO 07/21/24 07:10 Q3H PRN PRN Pain Sodium Chloride 0 ml 06/21/24 06:00 Normal Saline Flush 10 Ml Syr IV 07/20/24 23:59 PRN PRN Sodium Chloride 0 ml 06/21/24 06:00 Normal Saline 10 Ml Vial IJ 07/20/24 23:59 DIRECTED PRN Sterile Water 0 ml 06/21/24 06:00 Water,Injection,Sterile 10 Ml Vial IJ 07/20/24 23:59 DIRECTED PRN PFSH Active Problems Active Problems: Problem Status Onset Code History of revision of total replacement of left knee joint Acute Z96.652 Peripheral edema Acute R60.0 Tinnitus Acute H93.19 Deafness in right ear Acute H91.91 Osteoarthritis of right knee Acute M17.11 Medical History Medical History Alcoholic hepatitis Neuropathy BPH (benign prostatic hyperplasia) Anemia Alcohol abuse Actinic keratosis Gastroesophageal reflux disease Medical History Comments:: +4 pitting edema LEs; rt more than left Surgical History Surgical History History of arthroscopic knee surgery History of carpal tunnel release History of prostate surgery Replacement of total knee joint (09/19/12) LEFT SIDE Tobacco Smoking/Tobacco Use Status: Former Tobacco Use Alcohol Alcohol Intake: current Alcohol intake frequency: 0-2 drinks per day Alcohol type: hard liquor Substance Use Substance use: Never Substance use type: does not use Vital Signs and Lab Results Vital Signs Most Recent Vital Signs in EMR: Most Recent Vital Signs Temp Pulse Resp BP Pulse Ox 37 C 92 H 20 168/75 H 99 06/21/24 10:06 06/21/24 10:06 06/21/24 10:06 06/21/24 10:06 06/21/24 10:06 Lab Results Blood Type / Crossmatch: No Data to Display Complete Blood Count: No Data to Display Complete Metabolic Panel: No Data to Display Liver Function Panel: No Data to Display Coagulation Panel: No Data to Display Cardiac Panel: No Data to Display Arterial Blood Gas: No Data to Display Venous Blood Gas: No Data to Display Pancreas Panel: No Data to Display Thyroid Panel: No Data to Display Infectious Disease: No Data to Display Blood Cultures: No Data to Display Toxicology Panel: No Data to Display Anesthesia Assessment and Plan Anesthesia History Personal History: No History of Anesthesia Complications Family History: No Family History of Anesthesia Complications Exercise Tolerance Exercise Tolerance: Metabolic Equivalents>4 Pertinent Negatives Pertinent Negatives: No Symptoms of GERD, No Major Cardiovascular Symptoms or Complaints (bilateral +4 pitting edema ), No Major Pulmonary Symptoms or Complaints and No History of CVA/TIA Cardiac & Pulmonary Exam Cardiac Exam: Heart Murmur Present Pulmonary Exam: Clear Bilateral Breath Sounds Implantable Cardiac Device Does patient have a Pacemaker or an ICD?: No Airway Exam Known Difficult Airway: No Mallampati Class: 2 Mouth Opening: Normal (> 3cm) Thyromental Distance: Greater than 3 cm Neck Range of Motion: Full ROM Neck Circumference: Normal Teeth Condition: Normal Dentition ASA Classification ASA Score: ASA 3 Emergency Case?: No NPO Status NPO Status: NPO Clears >2 hours, Solids >8 hours Anesthesia Plan Resuscitation Status: Full Code Anesthesia Technique: Spinal Anesthesia Airway Planned: Natural Airway Pain Management: Surgeon and patient request nerve block Monitors Used: Standard Monitors and SedLine Preoperative Comments:: Mr. Potter is being evaluated today preoperatively for a TKA. Today Mr. Potter endorses acute onset of bilateral pitting edema x 5-6 months ago, which he states was worse 2 weeks ago when he ran out of his furosemide prescription. Today, he presents with a new systolic murmur. Given that there is no recent cardiac work-up including EKG and Echocardiogram and the state of his cardiac function is uncertain it would be appropriate for todays elective case to be postponed pending a formal cardiac work-up. Mr. Potter reports that he recently has been bounced around regarding his primary care and currently does not have any follow-up or PCP. This was discussed with Dr. Michel who was in agreeance with the plan to cancel/postpone todays care. Mr. Potter expressed his disappointment however was agreeable to postpone given the risk. Dr. Michel is to follow-up and proceed with Mr. Mata cardiac work-up
[2024-06-21 11:00] VITALS: BMI 33.8
== END 2024-06-21 09:24 | disposition home or self-care (01) ==
PROVIDERS: PCP Nurse Practitioner Family; Visit Provider Student in an Organized Health Care Education/Training Program
DX: M17.11 Unilateral primary osteoarthritis, right knee (principal); Z53.8 Procedure and treatment not carried out for other reasons; R01.1 Cardiac murmur, unspecified; R60.0 Localized edema
CPT/HCPCS: 73560; J1100; J2405; J2704

== ENCOUNTER 2024-06-26 01:28 | Outpatient (CLI) | payer MEDICARE, SELFPAY ==
--- NOTE | 2024-06-26 08:30 | DI.US_ITS ---
APPROVED REPORT EXAM: Comprehensive 2D, Doppler, and color-flow Echocardiogram Patient Location: Out-Patient Security System Analyst: Raul Nova RDCS (AE) Indications: New holocystolic murmur and peripheral edema Conclusion Normal left ventricular wall thickness and chamber size. Ejection fraction is 55 to 60%. Wall motio n is normal Normal right ventricular size and function Both atria are normal in size Aortic valve is mildly sclerotic and trileaflet without stenosis or regurgitation There is no additional valvular disease Wall motion Left Ventricle The left ventricle is normal size. The left ventricular systolic function is normal. The left ventric ular ejection fraction is within the normal range. There is normal left ventricular wall thickness. T here is normal LV segmental wall motion. There is no ventricular septal defect visualized. LVEF is 55 -60%. Right Ventricle The right ventricle is normal size. The right ventricular systolic function is normal. Atria The left atrium size is normal. The right atrium size is normal. The interatrial septum is intact wit h no evidence for an atrial septal defect. Aortic Valve The Aortic valve is mildly sclerotic. There is no aortic valvular stenosis. No aortic regurgitation i s present. Mitral Valve The mitral valve is normal in structure. No evidence of mitral valve stenosis. There is no mitral isha ve regurgitation noted. Tricuspid Valve The tricuspid valve is normal in structure. There is no tricuspid valve stenosis. Trace tricuspid reg urgitation. Unable to assess PA pressure. Pulmonic Valve The pulmonary valve is normal in structure. There is no pulmonic valvular stenosis. There is no pulmo sindi valvular regurgitation. Great Vessels The aortic root is normal in size. The ascending aorta is mildly dilated. Aortic arch is normal in ca liber. IVC is normal in size and collapses >50% with inspiration. Pericardium There is no pericardial effusion. 2D Dimensions IVSD d PLAX 1.11 cm M: 0.6-1.2 Ao Root d 2.87 cm M: 3.1 - 3.7 LVPW d PLAX 1.06 cm M: 0.6 - 1.2 Ao Asc Diam d 3.81 cm M: 2.6 - 3.4 LVID d PLAX 5.46 cm M: 4.2 - 5.8 LVDs 3.70 cm M: 2.5 - 4.0 LV EF Teichholz 60.0 % FS 32.30 % LV EDV (Teich) 145.2 mL LV ESV (Teich) 58.1 mL Stroke Vol Index (Teich) 37.55 M-Mode TAPSE 1.48 cm (M/F) >1.7 Auto EF LV EDV A4C 159.9 mL LV EDV A2C 128.5 mL LV EDV BP 143.2 mL LV ESV A4C 73.6 mL LV ESV A2C 55.9 mL LV ESV BP 65.8 mL LVEF(%) A4C 54.0 % LVEF(%) A2C 56.5 % LVEF(%) BP 54.1 % LV SV A4C 86.3 ml LV SV A2C 72.6 ml LV SV BP 77.4 ml LV CO A4C 7.8 L/min LV CO A2C 6.8 L/min LV CO BP 7.3 L/min HR A4C 90.01 BPM HR A2C 93.22 BPM LV EDV Index (BP) LA Volume LA Length A4C 4.1 cm LA Length A2C 5.0 cm LA Area A4C s 10.32 cm2 LA Area A2C s 13.46 cm2 LA Vol A4C A-L 21.81 mL LA Vol A2C A-L 30.74 mL LA Vol Biplane A-L 28.4 mL LA Vol/BSA A4C A-L LA Vol/BSA A2C A-L LA Vol/BSA BP A-L 12.3 mL/m2 LA Vol A4C MOD 18.4 mL LA Vol A2C MOD 28.7 mL LA Vol BP MOD 25.0 mL RA Volume RA Area A4C 9.4 cm2 RA ESV A4C (A-L) 17.0mL RA Vol/BSA A4C A-L RA Length A4C 4.4 cm RA ESV A4C (MOD) 16.0mL LV Diastology MV E' medial 0.077 (>0.07 m/s) MV E Vmax 0.47 (0.4-1.3 m/s) MV E/E' MED 6.19 (<14) MV A Vmax 0.85 (0.4-1.3 m/s) MV E' lateral 0.083 (>0.1 m/s) E/A Ratio 0.6 MV E/E' LAT 5.72 (<14) MV E' Average 0.080 m/s MV E/E'(average) 5.95 Aortic Valve AoV Vmax 1.56 m/s LVOT Vmax 0.80 m/s AoV Peak Grad 9.7 mmHg LVOT Peak Grad 2.6 mmHg AoV Area (Vmax) 1.55 cm2 LVOT VTI 0.133 m AoV VTI 0.261 m LVOT Mean Grad 1.8 mmHg AoV Mean Richard. 1.12 m/s LVOT SV 40.00 mL AoV Mean Grad 5.8 mmHg LVOT Diam s 1.95 cm AoV Area (VTI) 1.53 cm2 AV Regurg Peak Gr. 9.74 mmHg Velocity Ratio 0.51 Mitral Valve MV Vmax TIPS 0.96 m/s MV Mean Grad 1.4 (<2mmHg) MV VTI 0.189 m Pulmonary Valve PV Vmax 1.10 (0.5-1.5 m/s) RVOT Vmax 0.77 m/s PV Peak Grad 4.9 mmHg RVOT Peak Gr. 2.4 mmHg PV Mean Richard 0.75 m/s RVOT VTI 0.145 m PV Mean Grad 2.6 mmHg RVOT Mean Gr. 1.4 mmHg
== END 2024-06-26 01:48 ==
LOC: DI 01:28
PROVIDERS: PCP Nurse Practitioner Family; Visit Provider Student in an Organized Health Care Education/Training Program
DX: R60.0 Localized edema (principal); R01.1 Cardiac murmur, unspecified
CPT/HCPCS: 93306

== ENCOUNTER 2024-07-05 07:17 | Day surgery (SDC) | payer MEDICARE, SELFPAY ==
[2024-07-05] VITALS (35 sets, daily range): BP systolic 145–190; BP diastolic 71–97; PULSE 70–104; RESP 13–22; TEMP 36.2–38.1; O2SAT 87–99; BMI 34.1
--- NOTE | 2024-07-05 07:51 | HPE_ITS ---
Assessment and Plan Assessment and plan (1) Osteoarthritis of right knee: Status: Acute Assessment and plan: Dwight is a 68-year-old male who is status post left knee two-stage revision. He is doing well from that but now is limited by the right side. He is here to for right knee replacement. Unfortunately his medical history continues to get complicated. He has no diabetes and only known hypertension. However, he did have a new murmur at the previous visit with ongoing edema which has been present for quite some time. He feels that the edema has never been addressed by his previous primary care team and he is still awaiting an appointment with a new primary care team. Due to their limited availability I have started him on furosemide which has kept the fluid down but still quite swollen. He reports no concerning features. Echocardiogram was within normal limits. At this point, I will move forward with right knee replacement. He does have hyperemia over the right foot but there is no associated pain. There is no purulence. This could be customer operations representative of a early cellulitis although I do not think it is. I think his local irritation over the swollen foot. Will compress the leg with wraps after surgery and also increase his furosemide dose. Once again I reviewed the knee replacement with Dwight. All of his questions were answered. We will move forward today. History of Present Illness History of Present Illness Chief Complaint: Right Knee Pain Narrative: Dwight is a 68-year-old who has known right knee osteoarthritis. I seen him previously for his left knee which went underwent knee replacement complicated by failure of components and infection. He is now status post two-stage revision on the left side is doing well from that with mild pain with prolonged activity. Unfortunately, he is mostly by his right side. He was scheduled for previous surgery about the right knee which was canceled due to the diagnose of a new murmur. He since had an echocardiogram which does not show any valvular disease about the heart and no significant volume overload. He still continues to have fluid retention in bilateral lower extremities. He does report a faint amount of serous weepage from the dorsum of the right foot with some surrounding hyperemia. He denies fevers or chills. He denies any significant pain in the right foot. He still is trying to get into a new primary care physician. He denies any chest pain or shortness of breath. Review of Systems All systems reviewed & are unremarkable except as noted in HPI and below PFSH All Active Problems Holosystolic murmur (Acute) History of revision of total replacement of left knee joint (Acute) Aspiration: 06/08/2024 Peripheral edema (Acute) Tinnitus (Acute) Deafness in right ear (Acute) Osteoarthritis of right knee (Acute) DEPO MEDROL 03/16/24 Medical History Alcoholic hepatitis Neuropathy BPH (benign prostatic hyperplasia) Anemia Alcohol abuse Actinic keratosis Gastroesophageal reflux disease Surgical History History of arthroscopic knee surgery History of carpal tunnel release History of prostate surgery Replacement of total knee joint (09/19/12) LEFT SIDE Social History Smoking/Tobacco Use Status: Former Tobacco Use Quit Date: 08/23/03 Smoking risk assessment performed?: Yes Alcohol Intake: current Alcohol Intake frequency: 0-2 drinks per day Alcohol type: hard liquor Drug use: Never Substance use type: does not use Housing: house Do you feel safe at home: Yes Do you feel safe in your relationship?: Yes Meds Allergies and Home Medications Allergies Allergy/AdvReac Type Severity Reaction Status Date / Time No Known Allergies Allergy Verified 07/04/24 11:12 Home Medications ?Medication ?Instructions ?Recorded ?Confirmed ?Type furosemide 40 mg tablet See Rx Instructions .Route 06/08/24 07/04/24 Rx .COMPLEX #90 tabs acetaminophen 500 mg tablet 1,000 mg (2 x 500 mg) PO Q8H PRN 06/21/24 07/04/24 Rx pain #90 tabs celecoxib 200 mg capsule (Celebrex) 200 mg PO BID PRN #60 caps 06/21/24 07/04/24 Rx docusate sodium 100 mg capsule 100 mg PO BID #30 caps 06/21/24 07/04/24 Rx (Colace) gabapentin 300 mg capsule 300 mg PO QHS #14 caps 06/21/24 07/04/24 Rx tramadol 100 mg tablet 100 mg PO TID PRN pain #30 tabs 06/21/24 07/04/24 Rx Exam Narrative Exam Narrative: Sitting up in the chair. No acute distress. Alert and orient x 3. Evaluation of the right leg shows no overlying skin changes or masses about the knee itself. There is 3+ pitting edema about the right leg which is similar to the contralateral left side. There is an area over the dorsum of the foot which is hyperemic. It is nontender to palpation. There may be some mild warmth within the foot. There is a faint amount of serous drainage seen over the dorsum of the foot although no drainage actively is seen. No purulence. No fluctuance. Cap refill less than 3 seconds. No pain with ankle or foot range of motion. No pain with knee range of motion. Resp Effort & Inspection: normal respiratory effort Auscultation: clear to auscultation bilaterally Cardio Rate: regular rate Rhythm: regular rhythm
[2024-07-05] MEDS: Acetaminophen 500 MG TAB 1000 MG PO (08:01)
[2024-07-05] MEDS: Gabapentin 300 MG CAP PO (08:01)
[2024-07-05] MEDS: Celecoxib 200 MG CAP 400 MG PO (08:01)
[2024-07-05] MEDS: Lactated Ringers 500 ML 80 ML IV (08:32)
--- NOTE | 2024-07-05 08:38 | W.ANESVAS ---
Midline Placement Date Performed: 07/05/24 Procedure Time: 08:30 Requesting Provider: Js Michel Procedure Location: Day Surgery Unit Sedation Given (Indicate Dose Given): No Sedation given Patient Mental Status: Awake Sterility: Hand Hygiene, Surgical Cap, Surgical Mask and Chlorhexidine Laterality: Right Insertion Site: Cephalic Midline Device: PowerGlide Pro 18G Catheter Length: 10 cm Midline Procedure Procedure: Catheter placed without resistance Dressing: Tegaderm Applied Blood Return: Present Flushes: Easily Ultrasound: Sterile probe cover and gel used Ultrasound Image Saved?: No Number of Attempts (See previous attempts in note section): 1 Procedure Tolerated: No Complications Procedure Outcome: Successful Procedure Comment:: poorly visible/palpable veins. one attempt for PIV without success. Easy US view of veins. Performed By: Álvaro Andres
[2024-07-05] MEDS: Normal Saline Flush 10 ML SYR IV (08:59)
--- NOTE | 2024-07-05 09:07 | W.ANESPRE ---
General Info Date of Service Date Performed: 07/05/24 Height: 6 ft Weight: 114.2 kg Body Mass Index (BMI): 34.1 Surgical Procedure: Operation Date: 07/05/24 09:55 Proposed Procedure Side Surgeon p Knee Total Arthroplasty, Cementless CR Right Js Michel MD Meds Allergies and Home Medications Allergies Allergy/AdvReac Type Severity Reaction Status Date / Time No Known Allergies Allergy Verified 07/05/24 07:57 Home Medication ?Medication ?Instructions ?Recorded furosemide 40 mg tablet See Rx Instructions .Route 06/08/24 .COMPLEX #90 tabs acetaminophen 500 mg tablet 1,000 mg (2 x 500 mg) PO Q8H PRN 06/21/24 pain #90 tabs celecoxib 200 mg capsule (Celebrex) 200 mg PO BID PRN #60 caps 06/21/24 docusate sodium 100 mg capsule 100 mg PO BID #30 caps 06/21/24 (Colace) gabapentin 300 mg capsule 300 mg PO QHS #14 caps 06/21/24 tramadol 100 mg tablet 100 mg PO TID PRN pain #30 tabs 06/21/24 Current Visit Medications: Current Medications Generic Name Dose Route Start Last Admin Trade Name Freq PRN Reason Stop Dose Admin Acetaminophen 1,000 mg 07/05/24 06:00 07/05/24 08:01 Acetaminophen 500 Mg Tab PO 07/05/24 23:59 1,000 mg PREOP JOSEPH Administration Celecoxib 400 mg 07/05/24 06:00 07/05/24 08:01 Celecoxib 200 Mg Cap PO 07/05/24 23:59 400 mg PREOP JOSEPH Administration Gabapentin 300 mg 07/05/24 06:00 07/05/24 08:01 Gabapentin 300 Mg Cap PO 07/05/24 23:59 300 mg PREOP JOSEPH Administration Cefazolin Sodium/Dextrose 2 gm in 50 mls @ 100 mls/hr 07/05/24 06:00 Ancef Duplex IVPB 07/05/24 23:59 PREOP JOSEPH Tranexamic Acid/Sodium Chloride 1,000 mg in 100 mls @ 600 mls/hr 07/05/24 06:00 IVPB 07/05/24 23:59 PREOP JOSEPH Ringer's Solution 500 mls @ 30 mls/hr 07/05/24 07:30 07/05/24 08:32 IV 08/04/24 07:29 80 mls/hr INFUSION JOSEPH Administration IV Miscellaneous Supplies 1 each 07/05/24 06:00 Iv Access IV 07/05/24 23:59 DIRECTED JOSEPH Sodium Chloride 0 ml 07/05/24 06:00 07/05/24 08:59 Normal Saline Flush 10 Ml Syr IV 07/05/24 23:59 10 ml PRN PRN Administration Sodium Chloride 0 ml 07/05/24 06:00 Normal Saline 10 Ml Vial IJ 07/05/24 23:59 DIRECTED PRN Sterile Water 0 ml 07/05/24 06:00 Water,Injection,Sterile 10 Ml Vial IJ 07/05/24 23:59 DIRECTED PRN PFSH Active Problems Active Problems: Problem Status Onset Code Holosystolic murmur Acute R01.1 History of revision of total replacement of left knee joint Acute Z96.652 Peripheral edema Acute R60.0 Tinnitus Acute H93.19 Deafness in right ear Acute H91.91 Osteoarthritis of right knee Acute M17.11 Medical History Medical History Alcoholic hepatitis Neuropathy BPH (benign prostatic hyperplasia) Anemia Alcohol abuse Actinic keratosis Gastroesophageal reflux disease Medical History Comments:: +4 pitting edema LEs; rt more than left 07/05/24 - cellulitis on top of right foot, seeping serous fluid. Pt noticed thismorning 07/05/24 - pt reports drank 2 beers last night Surgical History Surgical History History of arthroscopic knee surgery History of carpal tunnel release History of prostate surgery Replacement of total knee joint (09/19/12) LEFT SIDE Tobacco Smoking/Tobacco Use Status: Former Tobacco Use Alcohol Alcohol Intake: current Alcohol intake frequency: 0-2 drinks per day Alcohol type: hard liquor Substance Use Substance use: Never Substance use type: does not use Vital Signs and Lab Results Vital Signs Most Recent Vital Signs in EMR: Most Recent Vital Signs Temp Pulse Resp BP Pulse Ox 38.1 C H 98 H 16 161/78 H 97 07/05/24 07:39 07/05/24 07:39 07/05/24 07:39 07/05/24 07:39 07/05/24 07:39 Vital Signs Comment Vital Signs Comment:: Temp recheck 36.7 Point of Care Results Point of Care Results: Finger Stick Blood Glucose 110 07/05/24 07:43 Lab Results Blood Type / Crossmatch: No Data to Display Complete Blood Count: No Data to Display Complete Metabolic Panel: No Data to Display Liver Function Panel: No Data to Display Coagulation Panel: No Data to Display Cardiac Panel: No Data to Display Arterial Blood Gas: No Data to Display Venous Blood Gas: No Data to Display Pancreas Panel: No Data to Display Thyroid Panel: No Data to Display Infectious Disease: No Data to Display Blood Cultures: No Data to Display Toxicology Panel: No Data to Display Imaging and Studies Imaging and Studies Study information below may be from another EMR and interpreted by another provider. Please see original notes in EMR for more complete details. Echocardiogram Summary: Indications: New holocystolic murmur and peripheral edema Conclusion Normal left ventricular wall thickness and chamber size. Ejection fraction is 55 to 60%. Wall motion is normal Normal right ventricular size and function Both atria are normal in size Aortic valve is mildly sclerotic and trileaflet without stenosis or regurgitation There is no additional valvular disease 06/26/24 Anesthesia Assessment and Plan Anesthesia History Personal History: No History of Anesthesia Complications Family History: No Family History of Anesthesia Complications Exercise Tolerance Exercise Tolerance: Metabolic Equivalents<4 Cardiac & Pulmonary Exam Cardiac Exam: Heart Murmur Present (very slight) Pulmonary Exam: Clear Bilateral Breath Sounds Cardiac and Pulmonary Comment:: Bilateral LE edema, chronic, with some weeping on top of right foot, surgeon aware. Implantable Cardiac Device Does patient have a Pacemaker or an ICD?: No Airway Exam Known Difficult Airway: No Mallampati Class: 2 Mouth Opening: Normal (> 3cm) Thyromental Distance: Greater than 3 cm Neck Range of Motion: Full ROM Neck Circumference: Normal Teeth Condition: Normal Dentition ASA Classification ASA Score: ASA 3 Emergency Case?: No NPO Status NPO Status: NPO Clears >2 hours, Solids >8 hours Anesthesia Plan Resuscitation Status: Full Code Anesthesia Technique: Spinal Anesthesia Airway Planned: Natural Airway Pain Management: Surgeon and patient request nerve block Monitors Used: Standard Monitors
--- NOTE | 2024-07-05 09:57 | PDOC.DSDIS_ITS ---
Date of service: 07/05/24 Time of Service: 09:57 Discharge Plan Disposition Patient Disposition: Home Condition: Good Discharge Details Reason For Visit: R TKR Attending Provider: Js Michel Primary Care Provider: Jake Santana Home Meds and New Rx's Prescriptions: New celecoxib 200 mg capsule 200 mg PO BID Qty: 60 0RF aspirin 81 mg tablet,delayed release (DR/EC) 81 mg PO BID Qty: 60 0RF acetaminophen 500 mg tablet 1,000 mg PO TID Qty: 90 3RF pantoprazole 40 mg tablet,delayed release (DR/EC) 40 mg PO DAILY Qty: 30 0RF gabapentin 300 mg capsule 300 mg PO QHS Qty: 14 0RF oxycodone 5 mg tablet 5 mg PO Q4H MDD 6 tabs PRN (Reason: pain) Qty: 20 0RF cefadroxil 500 mg capsule 500 mg PO BID Qty: 14 0RF Continued docusate sodium [Colace] 100 mg capsule 100 mg PO BID Qty: 30 0RF Changed furosemide 40 mg tablet 80 mg PO QAM Qty: 60 3RF Discontinued tramadol 100 mg tablet 100 mg PO TID PRN (Reason: pain) Qty: 30 0RF celecoxib [Celebrex] 200 mg capsule 200 mg PO BID PRNQty: 60 0RF Rx Instructions: Take one tablet twice daily for pain and inflammation acetaminophen 500 mg tablet 1,000 mg PO Q8H PRN Qty: 90 0RF Rx Instructions: Take two tablets up to every 8 hours as needed for pain gabapentin 300 mg capsule 300 mg PO QHS Qty: 14 0RF Rx Instructions: Take one tablet at bedtime Discharge Instructions Additional Instructions: Total Knee Discharge Instructions Activity: The most important activity is to walk and to work on gentle motion (both flexion and extension). You should try to take short walks a few times a day. It is important that when resting you work on keeping the knee straight. Avoid putting a pillow behind the knee as this will encourage flexion. Work on range of motion exercises as provided by Physical Therapy. - Start outpatient physical therapy within 2 weeks. - You should wear the PEGGY hose on both legs for 2 weeks. You may remove these at night. You may also use any compression sock in place of the PEGGY hose. - Utilize [employer] to review exercises, see videos on exercises and obtain basic information pertaining to your surgery and your recovery. Dressing: Remove the Julio wrap by 2 days after your surgery and put on the PEGGY stocking given to you from the hospital. Keep the surgical dressing (underneath the JULIO wrap) in place for at least one week. After the first week it may be removed and replaced with light gauze and tape or nothing. The wound and dressing may get wet after 3 days but avoid soaking the dressing or otherwise it will need to be changed. Many people prefer covering the dressing with cling wrap (saran wrap) to minimize it from getting soaked. If it gets wet, just pat dry. If it starts to peel off then it will need to be changed. Medications: - You should take Tylenol and anti-inflammatory Celebrex as your primary pain control medications. If the Celebrex is too expensive or not covered, please call the office for another alternative (Advil/Ibuprofen or Naproxen/Aleve) - You have been prescribed a stronger pain medication Oxycodone for breakthrough pain, take as needed as prescribed. - You have also been prescribed a stomach acid reduction agent Pantoprozole to help reduce stomach acid and reflux. - You have been prescribed Gabapentin to take at night for restlessness and nerve pain. - You will be taking Aspirin 81mg twice a day for DVT prevention unless instructed otherwise. - You should increase your furosemide to 80mg once a day for swelling in your legs. - You have been prescribed an antibiotic Cefadroxil that you will take for the first week for infection prevention. - If you have constipation you should take Colace or Miralax (both [id number]). It takes most people 3-4 days to have a bowel movement. Follow-up: 2 weeks If you have any acute concerns or questions, please do not hesitate to contact the office at [phone]. You may contact Dr. Michel with any questions after hours through the hospital at [phone] or on his cell phone at [phone]. Stand Alone Forms: Anesthesia Discharge Inst., Alanis.Nerve Block Instructions, Lucia Ryan ([facility]) Referrals: Js Michel MD [ [facility] STAFF PHYSICIAN] - 07/17/24 10:15 am Equipment/Supplies: Walker Activity:: Activity as Tolerated Shower/Bathe:: 72 hours Diet:: As Tolerated Discharge Orders Discharge Orders: Discharge Order (Routine); Ordered 07/05/24 Ordered By: Chuck Donnelly DS: Diagnosis Discharge Diagnosis (1) Osteoarthritis of right knee: Status: Resolved
--- NOTE | 2024-07-05 10:21 | W.ANESNERVE ---
Nerve Block Single Injection Procedure Date and Time Date Performed: 07/05/24 Procedure Start: 09:53 Location Where Procedure Performed Procedure Location: Day Surgery Unit Reason Performed: Postoperative Analgesia Requesting Provider: Js Michel Timeout Performed Timeout Performed: Yes Monitoring Used ECG, Blood Pressure, SpO2 and See EMR for corresponding vital signs Sterility Sterility: Hand Hygiene, Surgical Cap, Surgical Mask, Sterile Gloves, Sterile Drape/Sheet and Chlorhexidine Sedation Given During Procedure Sedation Given (Indicate Dose Given): No Sedation given Patient Mental Status Patient Mental Status: Awake Nerve Block 1st Nerve Block: Laterality: Right Block Type: Adductor Canal Ultrasound Image Saved?: Yes Needle / Catheter Used: 100mm SonoPlex II Local Anesthetic Bolus (Indicate Dose Given): Lidocaine used for local infiltration of skin, Injected in 3-5ml increments after negative blood aspiration and Bupivacaine 0.25% Dose:: 20 ml Additives (Indicate Dose Given): None Ultrasound: Sterile probe cover and gel used Nerve Stimulator: Supplement to Ultrasound use and No twitch or parasthesia noted < 0.5 mA Paresthesia: None Procedure Tolerated: No Complications and Patient tolerated well Procedure Outcome: Successful Performed By: Tierra Galvez
[2024-07-05] MEDS: ceFAZolin 2 GM/50 ML BAG IVPB (10:26)
[2024-07-05] MEDS: TRANEXAMIC ACID/SOD. CHL. 1,000 MG/100 ML BAG 600 MG IVPB (10:42)
--- NOTE | 2024-07-05 12:55 | ROE_ITS ---
Date of service: 07/05/24 Time of Service: 10:30 Operative Note Operative Note DATE OF PROCEDURE: 07/05/24 PRE-OP DIAGNOSIS: Right Knee Osteoarthritis POST-OP DIAGNOSIS: same PROCEDURE: Right Total Knee Replacement SURGEON: Js Michel WORKFORCE PLANNING ANALYST: Inés Donnelly ANESTHESIA TYPE: Spinal Refer to Anesthesia Record ESTIMATED BLOOD LOSS: 150 PATHOLOGY: none sent TOURNIQUET TIME: 0 COMPLICATIONS: None Patient was transported to: PACU Patient's condition: stable Implants: 1. Depuy Attune Cementless Cruciate Retaining Femoral Component, Size 8 2. Depuy Attune Cementless Fixed Bearing Tibial Component, Size 7 3. Depuy Attune 8x8mm CR/FB Poly 4. Depuy Attune Patellar Component, Size 41 Indications: I have seen Dwight in clinic for symptoms of knee arthritis, confirmed with radiographic findings. Diwght has exhausted nonoperative methods and was having significant limitations in daily function and desired better function and less pain. I discussed the technical details of a knee replacement. I explained the risks of the procedure to include, but not limited to, bleeding, infection, pain, stiffness, fracture, damage to nerves and vessels, damage to muscles and tendons, loosening, need for repeat procedure, blood clot and cardiopulmonary demise. Despite these risks, Dwight elected to proceed. Findings: There was significant signs of arthritis throughout the knee involving all 3 compartments but worse medially. There was also significant synovitis throughout the knee which was resected. Procedure Description: Dwight was greeted in the preoperative holding area where the correct side was identified and marked. The consent was reviewed with the patient and signed. The history and physical was updated. All questions were answered. Preoperative medications were administered: Acetaminophen 1000mg, Celebrex 400mg, and Gabapentin 300mg. An adductor canal block was then administered by the anesthesia team in the DSU. He was taken back to the operating room. A spinal anesthestic was then administered. The patient was placed into the supine position on the operating room table. Posts were placed for positioning during the procedure. All bony prominences were well padded. Prophylactic antibiotics in the form of Cefazolin were administered. 1g of Tranxemic Acid was given intravenously within 30 minutes of incision. The right leg was then prepped with Chloraprep and draped in a standard fashion with impervious stockinette. A second prep with Chloraprep was performed prior to application of Iodine impregnated skin protection. A timeout to confirm correct identity, side and site, procedure, allergies, anesthesia, and medical concerns was performed. With the knee in some flexion, a midline incision was made overlying the knee. Full thickness skin flaps were raised once the extensor mechanism was encountered. These were raised medially and laterally. Any bleeding was controlled with electrocautery. Once the extensor mechanism was fully exposed, a medial parapatellar arthrotomy was performed in a flexed position. All bleeding from the arthrotomy and the geniculate arteries was coagulated. A medial subperiosteal peel was performed with electrocautery to the midcoronal plane. Due to the significant varus deformity the entire medial tibial plateau was exposed. The fat pad was removed while keeping the patellar tendon protected. The anterior distal femur synovium was removed for later visualization. The ACL and PCL were resected and the anterior horn of the lateral meniscus was transected. The knee was then flexed with the patella everted. Large osteophytes from the tibia were removed. Large osteophytes from the femur were removed. An aggressive synovectomy was also performed due to the significant amount of synovitis seen. Using a step drill, and based on preoperative templating, the femoral canal was entered. This was done with a step drill without any difficulty. The intramedullary distal femoral cut guide was inserted, set to a 5 degree valgus cut and 9mm cut thickness. The distal femoral cut guide was then held in position and pinned. With the soft tissues protected, the distal cut was performed. This was passed over a few times to ensure a planar cut. I then turned attention to the tibia. The extramedullary guide was placed onto the leg. The distal aspect was slid medial to adjust for position of center of ankle and stay in line with shaft of the tibia. Approximately 3-5 degrees of posterior slope was kept in the proximal cutting guide. The center of the guide was aligned with the PCL. The stylus was used to assess cut thickness. The medial side, most involved side, was set for a 4mm cut. This was then held in position and pinned into place with 2 additional pins and a cross pin for stability. The medial and lateral collateral ligaments were protected and the cut was performed. With this completed, it was assessed and noted to be of appropriate dimensions. The guide was removed. A spacer block was inserted and the knee was brought into extension. The 7mm spacer block provided full extension, without hyperextension and with stability of both the medial and lateral collateral ligaments was assessed. The pins from the femur and the tibia were then removed. The distal femur was then sized. The anterior stylus was placed onto the lateral ridge of the anterior femur. This indicated a size 8 femur. The external rotation of the guide was adjusted to 3 degrees to match the epicondylar axis, perpendicular to Spenser?s line. The 4-in-1 cutting guide was the placed, a posteriorized 1.5 mm. The posterior medial femur cut was evaluated and appeared of good thickness. The spacer block was inserted underneath the cutting guide and stability was confirmed in 90 degrees of flexion. An loan wing was used to confirm appropriate position of the anterior cut to avoid notching. This cutting guide was ensured to be flush on the cut surface and then pinned into place with headed pins. While protecting the soft tissues, quad tendon, and collateral ligaments, the anterior and posterior cuts were performed with a saw. The central two pins were removed and the posterior and anterior chamfers were cut next. The notch-cutting guide was placed. This was pinned to lateralize the femoral component as much as possible while keeping it flush on the cut surface. This was then pinned into position. A reciprocating saw was used to make the notch cut. A rasp smoothed the cut surfaces. The medial and lateral menisci were removed. A trial femoral component was then inserted, impacted down to the cut surfaces, and the lug holes were drilled. A provisional trial tibial component was placed and the knee was brought through range of motion. The polyethylene was trialed until there was good flexion and extension with excellent stability to the medial and lateral collaterals. The patella was tracking without thumbs. A size 8mm polyethylene component provided the best range of motion and stability with less than 2mm gapping with medial and lateral stress and full extension without significant hyperextension. The tibial cut surface was fully exposed. The tibia was then sized as a 4. The tibia had been previously marked during trialing to correspond to the center of the tibial component to help with rotation. The trial was aligned to this inés, approximately rotated to the medial 1/3rd of the tibial tubercle. The trial was pinned into place. The tibia was prepared with a reamer and a keel punch and lug holes. The knee was then brought into extension and the patella was measured as 28mm. Using the patellar clamp and cut guide, this was resected to a flat surface with at least 13mm of thickness remaining. The size 41 patella fit the best. This was oriented and then clamped into position. The lugs were drilled. The trial components were removed. The final components were opened on the back table. The periosteal and capsular tissues, especially posteriorly, around the knee were then systematically injected with a periarticular cocktail consisting of 246mg of Ropivacaine, 0.5mg of Epinephrine, 0.08mg of Clonidine, and 30mg of Ketorolac, diluted to 100cc. On the back table, with the implants opened, the cement was mixed. One batch of high viscosity cement was prepared with vacuum assistance. After the cement was ready a small amount was placed on the cut surface of the patella and the patellar button was clamped into position and held. While the cement was alfred dening, the cementless knee components were placed. Starting with the tibial component, the tibia was subluxed anteriorly and the lug holes of the component were lined up. The tibia was then impacted with an impactor and mallet until the tibial component was in contact with the tibia. The final polyethylene component was inserted. Then, the femoral component was inserted. The lug holes were aligned and the component was impacted into position. The knee was irrigated with Surgiphor Betadine solution. This was allowed to sit in the knee for 3 minutes and then it was irrigated out with saline. After the cement had finally cured, approximately 15min, the clamp was removed from the patella and the knee was taken through range of motion. The patella was tracking with a no-thumbs technique. The capsule was then reapproximated with a No. 1 Vicryl at multiple locations. The capsule was finally closed with a No. 2 Stratafix, barbed suture. The second dosing of 1g TXA was started. Deep tissues were then reapproximated with 0 Vicryl and 2-0 Vicryl. The skin was closed with a running 3-0 Monocryl in a subcuticular fashion. This was reinforced with skin glue. A Mepilex silver d ressing was applied along with a [id number] LYNDA wrap. A CryoCuff was applied. Dwight was transferred to the hospital bed without difficulty an suffering no apparent complication. Dwight has a good prognosis. Physical therapy will start today and without restrictions, weight-bearing as tolerated. Aspirin 81mg BID will be used for DVT prophylaxis.
[2024-07-05] MEDS: fentaNYL 100 MCG/2 ML VIAL IVP ×2 (13:01→13:10)
--- NOTE | 2024-07-05 14:00 | W.ANESPOSTOP ---
Postoperative Evaluation Date, Time and Location Date Performed: 07/05/24 Time Performed: 13:30 Patient Location: PACU Vital Signs Most Recent Imported Vital Signs: Most Recent Vital Signs Temp Pulse Resp BP Pulse Ox 36.6 C 79 16 172/92 H 99 07/05/24 13:25 07/05/24 13:26 07/05/24 13:26 07/05/24 13:26 07/05/24 13:26 Pain Score Most Recent Pain Score: Most Recent Pain Score Pain Level 5 07/05/24 13:25 Assessment Mental Status: Awake (Alert & Oriented to Patient Baseline) Airway and Respiratory Function: Patent airway with normal (patient baseline) respiratory exam Cardiovascular Function: Hemodynamically Stable Hydration Status: Adequately Hydrated Nausea & Vomiting: No Nausea or Vomiting Pain: Pain is tolerable per patient Peripheral Nerve Block: Regional nerve block not resolved at time of post operative discharge
[2024-07-05] MEDS: oxyCODONE 5 MG TAB PO (14:16)
--- NOTE | 2024-07-05 14:26 | IN_ITS ---
PT Notes Visit Reasons: R TKR Physical Therapy Day Surgery Initial Evaluation Date: 07/05/2024 Referring Doctor: Dr. Michel PT Orders: PT CONSULT: Status post Ortho surgery Precautions: Weightbearing as tolerated right lower extremity;TEDS x 2 weeks Patient Profile/Admitting Diagnosis: Patient is 68-year-old male admitted status post elective right TKA under spinal anesthesia due to OA. Postop uncomplicated PMHX: Holosystolic murmur (Acute) History of revision of total replacement of left knee joint (Acute) Aspiration: 06/08/2024eripheral edema (Acute) Tinnitus (Acute) Deafness in right ear (Acute) Osteoarthritis of right knee (Acute) DEPO MEDROL 03/16/24 Medical History Alcoholic hepatitis Neuropathy BPH (benign prostatic hyperplasia) Anemia Alcohol abuse Actinic keratosis Gastroesophageal reflux disease Surgical History History of arthroscopic knee surgery History of carpal tunnel release History of prostate surgery Replacement of total knee joint (09/19/12) LEFT SIDE Social History/Home Situation: Patient resides in [facility] home with his 2 steps to enter with rail. Patient reports 1 step down into the living room. Patient has been utilizing 1 crutch since left TKA. Patient independent ambulation, ADLs, IADLs, driving, medication management. 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 Equipment Owned/DME: Axillary crutches, patient fitted for FWW Subjective: Patient reports he will use the FWW within the home and axillary crutches while in the barn for stability Objective: General Observation: Patient semireclined on stretcher eating sandwich. Cryo/Cuff in place to right knee IV infusing and right upper extremity Mental Status: Alert and oriented x 4 cooperative, motivated and willing to participate in evaluation Pain: Right knee 3/10 ROM: [] Right Upper Extremity: WNL Left Upper Extremity: WNL Right Lower Extremity: Hip and ankle within normal limits, knee 0?92 Left Lower Extremity: Hip and ankle within normal limits, knee 0?112 Strength: [] Right Upper Extremity: 5/5 Left Upper Extremity: 5/5 Right Lower Extremity: Hip flexion: 3-/5; hip abduction: 3-/5; hip extension: 3- 3/5; knee extension: /5; knee flexion: 2+ /5 ankle DF: 3/5 ; ankle PF: 3 /5 Left Lower Extremity: Hip flexion: 3+ /5; hip abduction: 3+/5; hip extension: 3/5; knee extension: 3+/5; knee flexion: 3 /5 ankle DF: 4 /5 ; ankle PF: 4/5 Sensation:Intact Bed Mobility/Transfers: Supine to sit independent Sit to stand independent Stand to sit independent Bed to chair independent with FWW or crutches Gait: Facilitated safe and correct performance of level surface ambulation covering a distance of 160 feet using use front wheeled walker with supervision and wheelchair follow for safety. Did not report of any increased pain. Denied headache, chest pain, and lightheadedness throughout activity. Minimal verbal cueing provided initially for AD management, directional changes, and posture. Facilitated safe and correct performance of level surface ambulation covering a distance of 100 feet using use axillary crutches with supervision and wheelchair follow for safety. Did not report of any increased pain. Denied headache, chest pain, and lightheadedness throughout activity. Minimal verbal cueing provided for AD management, directional changes, and posture. Stairs: 5 steps with bilateral rails supervision with cues for sequencing step to pattern. Patient with recent left TKA and is in the habit of performing step up with right lower extremity initially required cues to lead with left lower extremity for ascending and cues to lead with right lower extremity descending. Balance: [] Static Sitting: Normal Dynamic Sitting: Good plus Static Standing: Good Dynamic Standing: Fair plus Special Tests: [] Mobility Limitations Standardized Measure [] [facility] Short Form: [] Raw Score: 22 CMS Score: 20.91% Informed Consent/Education: Patient instructed in purpose of PT consult. Packet containing TKA exercise protocol has been given to patient. Education and training on initial set of exercises that can be done at home have been completed with patient. Assessment: Patient presents with clinical signs and symptoms consistent with current/admitting diagnoses that have resulted to mobility limitations, gait instability, generalized weakness, and impairment of motor control as demonstrated by the following impairment level findings: 1. Decreased strength to right knee major muscle groups 2. Impaired standing balance 3. Limitation of joint range of motion in right knee Impairments are contributing to the following functional limitations: 1. Inability to safely ambulate without assistive device 2. Increase completion time for mobility ADL performance 3. Increased fall risk 4. Decline in ability to perform stairs without supervision Patient also limited by recent left TKA with continued intermittent pain, impaired strength and range of motion. Patient demonstrates ability to return home with use of axillary crutches and FWW with supervision initially status post surgery. Patient is assessed as a moderate complexity based on the following: History: 68-year-old male with impairment level findings, functional limitations, and past medical history as indicated above Examination: Demonstrable impairment in strength, balance, and mobility level with underlying impairments and functional limitations as documented above Presentation: Stable Decision Making: Moderate Goals: N/A. Plan of Care/Treatment Plan: N/A. DISCHARGE RECOMMENDATIONS: Home with home health services and outpatient PT as scheduled TREATMENT CODE/TIME: 26628 x 20 minutes for 1 unit, 52474 x 17 minutes for 1 unit/[id number] Thank you for the opportunity to participate in the care of this patient. Neida Henderson PT Please sign an return this page within 30 days if you agree with the above POC. Thank you! Physician Signature Date [facility]
== END 2024-07-05 15:44 | disposition home or self-care (01) ==
PROVIDERS: PCP Nurse Practitioner Family; Visit Provider Student in an Organized Health Care Education/Training Program
PROC: (CPT 27447; principal; 2024-07-05 09:45)
DX: M17.11 Unilateral primary osteoarthritis, right knee (principal); K21.9 Gastro-esophageal reflux disease without esophagitis; G62.9 Polyneuropathy, unspecified; D64.9 Anemia, unspecified; F10.10 Alcohol abuse, uncomplicated; N40.0 Benign prostatic hyperplasia without lower urinary tract symptoms; G89.18 Other acute postprocedural pain
CPT/HCPCS: 27447; 36410; 64447; 97162; 97530; C1776; J0665; J0690; J1100; J2003; J2250; J2371; J2401; J2405; J2704; J3010

== ENCOUNTER 2024-07-17 12:01 | Outpatient (CLI) | payer MEDICARE, SELFPAY ==
[2024-07-17 09:54] LABS: Calculated LDL 97 mg/dL (<100); Cholesterol 164 mg/dL (<200); HDL Cholesterol 51 mg/dL (40-60); Triglyceride 83 mg/dL (<150)
[2024-07-17 17:46] LABS: PSA, Screening 0.3 ng/mL (<=4.5)
== END 2024-07-17 12:02 | disposition home or self-care (01) ==
LOC: LBO 12:02
PROVIDERS: PCP Nurse Practitioner Family; Visit Provider Nurse Practitioner Family
DX: Z12.5 Encounter for screening for malignant neoplasm of prostate (principal); Z13.6 Encounter for screening for cardiovascular disorders
CPT/HCPCS: 36415; 80061; 84153; 99024; 73560; 77073

== ENCOUNTER 2024-07-17 14:27 | Outpatient (CLI) | payer MEDICARE, SELFPAY ==
--- NOTE | 2024-07-17 10:30 | DI.RAD_ITS ---
Exam(s) XR KNEE RT 1V XR STANDING ALIGNMENT EXAM: XR STANDING ALIGNMENT and XR knee RT 1 V CLINICAL HISTORY: 1ST POST OP S/P R TKA. TECHNIQUE: 2D digital imaging was performed. Five images were obtained. COMPARISON: CR XR KNEE LT 2V AP,LAT from 04/26/2024 CR XR KNEE LT 2V AP,LAT from 05/11/2024 CR XR KNEE LT 2V AP,LAT from 06/08/2024 CR XR KNEE RT 2V AP,LAT from 06/21/2024 FINDINGS: BONES: The hips are well maintained. The patient is now status post right total knee arthroplasty. The orthopedic hardware is in good position. No suspicious lucencies are seen in or about the orthop edic hardware. There is a stable left total knee arthroplasty. The ankles are well maintained.There is no significant leg length discrepancy. SOFT TISSUE: Normal. IMPRESSION: Interval placement of a right total knee arthroplasty. DATA REPOSITORY: RADIATION DOSE DELIVERED:
== END 2024-07-17 14:28 | disposition home or self-care (01) ==
LOC: DIORS 14:27
PROVIDERS: PCP Nurse Practitioner Family; Visit Provider Student in an Organized Health Care Education/Training Program
DX: Z96.651 Presence of right artificial knee joint (principal); Z47.1 Aftercare following joint replacement surgery
CPT/HCPCS: 73560; 77073

== ENCOUNTER 2024-08-24 15:48 | Outpatient (CLI) | payer MEDICARE, SELFPAY ==
--- NOTE | 2024-08-24 14:45 | DI.RAD_ITS ---
Exam(s) XR ANKLE LT COMPLETE EXAM: XR ANKLE LT COMPLETE CLINICAL HISTORY: left ankle pain TECHNIQUE: 2D digital imaging was performed. Three views. COMPARISON: No exams were available for comparison FINDINGS: BONES: No acute fracture is present. No bony destructive lesion is seen. Heel spurs. JOINTS:The ankle mortise is normally aligned. Mild periarticular spurring. SOFT TISSUE: Diffuse edema. IMPRESSION: Mild tibiotalar joint degenerative changes. Heel spurs. DATA REPOSITORY: RADIATION DOSE DELIVERED:
== END 2024-08-24 15:49 | disposition home or self-care (01) ==
LOC: DIORS 15:49
PROVIDERS: PCP Nurse Practitioner Family; Referring Provider Nurse Practitioner Family; Visit Provider Physician Assistant
DX: M25.572 Pain in left ankle and joints of left foot (principal); Z47.1 Aftercare following joint replacement surgery; Z96.651 Presence of right artificial knee joint
CPT/HCPCS: 99213; 73610

== ENCOUNTER 2025-01-04 15:31 | Emergency (ER) | payer MEDICARE, SELFPAY ==
[2025-01-04 15:38] VITALS: BP 108/64; PULSE 90; RESP 20; TEMP 37
[2025-01-04 15:46] VITALS: BP 108/64; PULSE 90; RESP 20; TEMP 37
--- NOTE | 2025-01-04 16:18 | ED.GENADUL_ITS ---
Discharge Plan Disposition Patient Disposition: Home Condition: Stable Discharge Details Clinical Impression: Cellulitis of right thigh, Traumatic hematoma of right thigh Primary Care Provider: Jake Santana ED Provider: Arcenio Larios Home Meds and New Rx's Prescriptions: New clindamycin HCl 300 mg capsule 300 mg PO TID 10 Days Qty: 30 0RF Continued furosemide 40 mg tablet See Rx Instructions .ROUTE .COMPLEX Qty: 180 1RF Dose Instruction: TAKE 2 TABLETS BY MOUTH EVERY MORNING Rx Instructions: TAKE 2 TABLETS BY MOUTH EVERY MORNING acetaminophen 500 mg tablet 1,000 mg PO TID Qty: 90 3RF Discharge Instructions Instructions: Hypokalemia, Cellulitis (Skin Infection), Adult ED, High- potassium diet Additional Instructions: You have a large deep bruise in your leg as well as an infection. Please take clindamycin as directed. Rest, elevate, warm compresses every 2 hours for 20 minutes. I spoke with the surgeon on-call, Dr. Estrada. He is in agreement with your treatment plan today. The plan will be for you to be seen in the surgical clinic on Wednesday. If you do not hear from the office by early afternoon tomorrow I recommend contacting the office yourself to be sure you have proper follow-up. Incidentally, your potassium was low today, a single oral dose was given. I would like you to have foods high in potassium over the weekend. I would recommend you contact your primary care provider tomorrow to discuss your ER visit and need for outpatient reevaluation. You will need outpatient labs drawn again to recheck your electrolytes. Please watch for new or worsening symptoms and return immediately to the ER. Referrals: Guido Estrada MD [ [facility] STAFF PHYSICIAN] - [facility] General Mode of arrival: ambulatory . Date/Time Provider Initiated Documentation: 01/04/25 15:38 . Limitations to Documentation: no limitations . Information obtained by: patient . History of Present Illness 69 year old M presents to the emergency department with the chief complaint of Right leg hematoma, described as moderate, with intensity rated at 5. Quality is described as aching, and is localized to the right and lower extremity. Patient reports no radiation. Patient started experiencing this day(s) (5) and it has been constant. No relieving factors improve symptom(s), No exacerbating factors reported . Patient notes other (Clear and bloody drainage). Patient did receive the following treatments prior to arrival, other (Sent by PCP) Related Data Home Medications ?Medication ?Instructions ?Recorded ?Confirmed acetaminophen 500 mg tablet 1,000 mg (2 x 500 mg) PO TID #90 07/05/24 01/04/25 tabs furosemide 40 mg tablet See Rx Instructions .Route 07/28/24 01/04/25 .COMPLEX #180 tabs clindamycin HCl 300 mg capsule 300 mg PO TID 10 days #30 caps 01/04/25 Previous Rx's ?Medication ?Instructions ?Recorded acetaminophen 500 mg tablet 1,000 mg (2 x 500 mg) PO TID #90 07/05/24 tabs furosemide 40 mg tablet See Rx Instructions .Route 07/28/24 .COMPLEX #180 tabs clindamycin HCl 300 mg capsule 300 mg PO TID 10 days #30 caps 01/04/25 Allergies Allergy/AdvReac Type Severity Reaction Status Date / Time No Known Allergies Allergy Verified 01/04/25 15:37 General Stated Complaint: Cellulitis [place]: 3 Review of Systems Constitutional Constitutional: Denies chills, Denies fever(s) and Denies weakness Cardiovascular Cardiovascular: Denies chest pain and Denies dyspnea Respiratory Respiratory: Denies dyspnea Gastrointestinal Gastrointestinal: Denies abdominal pain, Denies nausea and Denies vomiting Genitourinary Genitourinary: Denies hematuria, Denies genital pain and Denies dysuria Musculoskeletal Musculoskeletal: Denies numbness and Denies tingling Integumentary/Breasts Skin/Breast: Reports wounds Neurologic Neurologic: Denies numbness, Denies tingling and Denies weakness Hematologic/Lymphatic Hematologic/Lymphatic: Denies easy bleeding and Denies easy bruising Exam Const General: cooperative, healthy appearing, comfortable and no acute distress Orientation: alert, awake and oriented x3 HENMT Head: normal to inspection, normocephalic and atraumatic Mouth: moist mucous membranes Eyes Conjunctivae: conjunctivae normal Neck Neck: normal visual inspection, trachea midline and supple Resp Effort & Inspection: normal respiratory effort and able to speak in complete sentences Cardio Rate: regular rate Rhythm: regular rhythm Male General Exam: Yes normal external exam Penis: normal penis Scrotum: scrotum normal Testes: normal Skin Other: Patient with a large noncircumferential hematoma of the right thigh extending from the groin to the knee. Centrally about the medial aspect there is a skin breakdown wound with serosanguineous fluid. Around the wound there is mild erythema with warmth and mild discomfort. Skin is tense. No purulent drainage. No lymphangitic streaking. Sensation intact throughout. Hip and knee are nontender. Neuro General: patient alert, patient awake, patient oriented x3, moves all extremities and no focal motor deficits Cognition: normal cognition Speech: speech normal Gait: normal gait Motor: muscle tone normal throughout Sensory Exam: no sensory deficits noted Extrem General: full ROM, capillary refill normal and pedal edema bilaterally non- pitting and 1+ Psych Appearance: grossly normal Mental Status: mental status grossly normal Course Vital Signs Vital signs: Vital Signs Temperature 37.0 C 01/04/25 15:38 Pulse 90 01/04/25 15:38 Respiratory Rate 20 01/04/25 15:38 Blood Pressure 108/64 01/04/25 15:38 Temperature 37.0 C 01/04/25 15:46 Temperature Source Oral 01/04/25 15:46 Pulse 90 01/04/25 15:46 Respiratory Rate 20 01/04/25 15:46 Blood Pressure 108/64 01/04/25 15:46 Blood Pressure Position Sitting 01/04/25 15:46 Oxygen Delivery Method Room Air 01/04/25 15:46 Oxygen Flow Rate 0 01/04/25 15:46 Pain Level 5 01/04/25 15:46 Medical Decision Making 69-year-old male describes being kicked in the right thigh 5 days ago by a cow. Immediately had pain which he states is overall improving. He has had impressive bruising about most of the thigh as well as swelling. He developed a superficial wound which has been producing a fairly bloody and serosanguineous discharge. He has been ambulatory without difficulty. Denies other injury. Denies any groin pain. Denies hip or knee pain. No purulent drainage. Seen by PCP today who felt as though the patient had a large hematoma but concern for possible abscess formation. Patient has not noticed a fever but does state he was told he had a fever of 101.0 by his PCP. Clinically patient appears well, nontoxic, no evidence of sepsis. Patient does have impressive bruising about the thigh with an obvious hematoma. Centrally there is a superficial wound with serosanguineous fluid. Surrounding the wound there is mild warmth and erythema with tense skin. I do not appreciate any lymphangitic streaking. Clinically I believe he has a large hematoma with developing cellulitis around the wound. Low suspicion for abscess or necrotizing fasciitis. No indication for x-ray as the patient has been ambulatory for the last 5 days. Will obtain CBC, CMP, and obtain blood cultures. Will give 600 IV [address]. Have requested Dr. Deal perform POCUS bedside exam, please see his report. POCUS reveals cobblestoning, swollen lymph nodes, hematoma without obvious abscess. No evidence of necrotizing fasciitis. White blood cell count of 6.96. Hemoglobin 9.5 hematocrit 28.7. Anemia appears near baseline. Sodium 132. Potassium of 3.0, will also give 40 p.o. potassium. Total bilirubin of 1.3. Abdomen is soft, nontender, no evidence of jaundice. AST 65, ALT 51, alk phosphatase [address] Estrada. No additional recommendations at this time, does not believe I&D to be indicated. Plan to initiate oral antibiotics and patient will follow up in the surgical clinic on Wednesday. Surgical referral given and patient placed on the surgical referral list. Discussed workup and plan with patient. Will provide prescription of clindamycin, discussed resting, elevating, warm compresses. Also discussed food high in potassium. Discussed the importance of watching for new or worsening symptoms, signs of infection, etc. and returning immediately to the ER. Otherwise we will follow-up with surgery on Wednesday. Will contact his PCP to discuss his ER visit and need for outpatient reevaluation including recheck of his electrolytes. Standard discharge and return precautions were provided. Patient understands, is agreeable to this plan, and has no additional questions or concerns upon discharge. This documentation was generated using enMarkitation system, please disregard any oddities of phrase or misspellings. Medical Records Medical records reviewed: Yes I reviewed the patient's medical records. Quality:SDOH Health Related Social Needs: No Data to Display PFSH All Active Problems (Updated 01/04/25 @ 17:21 by HARSHIL Cohen) Traumatic hematoma of right thigh (Acute) Cellulitis of right thigh (Acute) Left ankle pain (Acute) Incomplete bladder emptying (Acute) Gastroesophageal reflux disease (Chronic) Alcoholic hepatitis (Acute) Neuropathy (Acute) BPH (benign prostatic hyperplasia) (Chronic) Actinic keratosis (Acute) Alcohol abuse (Chronic) Holosystolic murmur (Acute) Peripheral edema (Acute) Tinnitus (Acute) Deafness in right ear (Acute) Medical History Mononucleosis (02/10/23) History of revision of total replacement of left knee joint Aspiration: 06/08/2024 Epidermoid cyst Surgically removed 20+ years ago Anemia Surgical History S/P TURP 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 Brother No problems noted. Brother No problems noted. Son No problems noted. Son No problems noted. Maternal Grandmother No problems noted. Maternal Grandfather No problems noted. Paternal Grandmother No problems noted. Paternal Grandfather No problems noted. Social History Smoking/Tobacco Use Status: Former Tobacco Use Quit Date: 08/23/03 Smoking risk assessment performed?: Yes Alcohol Intake: current Alcohol Intake frequency: 0-2 drinks per day Alcohol type: beer and hard liquor Drug use: Never Substance use type: does not use Adopted: No Caregiver/Support person: No Household members: spouse Housing: house Number of Children: 2 number of grandchildren: 3 Communication Needs: Hard of Hearing and Corrective Lenses Education Level: high school Details: 10th grade Do you need help understanding health information?: Never current occupation: [employer] Sexually active: No Do you think of yourself as: straight/heterosexual Current gender identity: male What is your relationship status?: How often do you talk on the phone with friends or family?: three or more times per week How often do you get together with friends or relatives?: twice per week How often do you attend temple or jehovah's witness services?: decline to answer Do you belong to any clubs or organized social groups?: no Panel score (0-1 are the most socially isolated patients): 2 NHANES result reviewed/action taken: Yes What type of physical activity do you participate in: other Details: Work/labor Duration: > 90 minutes/day Frequency: daily Special em needs: No Seatbelt use: always Helmet use: Yes Helmet use: always Drive intox or ride w/intox bus driver supervisor: No Firearms in home: Yes Firearms unloaded and locked: Yes Do you feel safe at home: Yes Do you feel safe in your relationship?: Yes Victim of physical abuse: No Victim of emotional abuse: No Victim of sexual abuse: No Would you like helpful sources: No
[2025-01-04 16:39] LABS: Abs Immature Grans 0.03 10^3/uL (0.0-0.06); Absolute Basophil Count 0.02 10^3/uL (0.0-0.2); Absolute Lymphocyte Count 0.92 10^3/uL (1.2-3.4); Absolute Monocyte Count 0.99 10^3/uL (0.1-0.8); Basophils % 0.3 %; Eosinophils % 1.4 %; HCT 28.7 % (40.0-50.0); HGB 9.5 g/dL (13.5-17.5); Immature Grans % 0.4 %; Lymphocytes % 13.2 %; MCH 28.2 pg (27.0-33.0); MCHC 33.1 % (32.0-36.0); MCV 85 fL (80-95); MPV 9.3 fL (8.0-11.0); Monocytes % 14.2 %; Neutrophils % 70.5 %; Platelet Count 229 10^3/uL (130-400); RBC 3.37 10^6/uL (4.36-5.78); RDW 19.1 % (11.8-14.1); RDW-SD 58.7 fL; WBC 6.96 10^3/uL (4.4-10.8)
[2025-01-04 16:55] LABS: ALT 51 U/L (16-63); AST 65 U/L (15-37); Albumin 3.4 g/dL (3.4-5.0); Alkaline Phosphatase 153 U/L (46-116); Anion Gap 7.1 mmol/L (3-11); BUN 15 mg/dL (7-18); Bilirubin, Total 1.3 mg/dL (0.2-1.0); CO2 30.9 mmol/L (21.0-32.0); CREATININE 0.9 mg/dL (0.70-1.30); Calcium 8.9 mg/dL (8.5-10.1); Chloride 94 mmol/L (98-107); Estimated GFR 93.03 (mL/min/1.73m2); Glucose 104 mg/dL (74-106); Sodium 132 mmol/L (136-145); Total Protein 7.7 g/dL (6.4-8.2)
[2025-01-04] MEDS: CLINDAMYCIN 600 MG/50 ML BAG 100 MG IVPB (17:11)
[2025-01-04] MEDS: Potassium Chloride 10 MEQ CAPCR 40 MEQ PO (17:30)
[2025-01-04 17:34] VITALS: BP 108/64; PULSE 90; RESP 20; TEMP 37
--- NOTE | 2025-01-04 19:27 | ED.PROG_ITS ---
Date of service: 01/04/25 Time of Service: 16:27 Medical Decision Making Quality:SDOH Health Related Social Needs: No Data to Display Procedure Abscess Drainage Provider that performed the procedure: Chuckie Deal Discharge Plan Disposition Patient Disposition: Home Condition: Stable Discharge Details Clinical Impression: Cellulitis of right thigh, Traumatic hematoma of right thigh Primary Care Provider: Jake Santana ED Provider: Arcenio Larios Home Meds and New Rx's Prescriptions: New clindamycin HCl 300 mg capsule 300 mg PO TID 10 Days Qty: 30 0RF Continued furosemide 40 mg tablet See Rx Instructions .ROUTE .COMPLEX Qty: 180 1RF Dose Instruction: TAKE 2 TABLETS BY MOUTH EVERY MORNING Rx Instructions: TAKE 2 TABLETS BY MOUTH EVERY MORNING acetaminophen 500 mg tablet 1,000 mg PO TID Qty: 90 3RF Discharge Instructions Instructions: Hypokalemia, Cellulitis (Skin Infection), Adult ED, High- potassium diet Additional Instructions: You have a large deep bruise in your leg as well as an infection. Please take clindamycin as directed. Rest, elevate, warm compresses every 2 hours for 20 minutes. I spoke with the surgeon on-call, Dr. Estrada. He is in agreement with your treatment plan today. The plan will be for you to be seen in the surgical clinic on Wednesday. If you do not hear from the office by early afternoon tomorrow I recommend contacting the office yourself to be sure you have proper follow-up. Incidentally, your potassium was low today, a single oral dose was given. I would like you to have foods high in potassium over the weekend. I would recommend you contact your primary care provider tomorrow to discuss your ER visit and need for outpatient reevaluation. You will need outpatient labs drawn again to recheck your electrolytes. Please watch for new or worsening symptoms and return immediately to the ER. Referrals: Guido Estrada MD [ [facility] STAFF PHYSICIAN] - POCUS Exam (ED) Limited Soft Tissue Exam DATE OF EXAM: 01/04/25 TIME OF EXAM: 16:27 PROVIDER THAT PERFORMED THE STUDY: Chuckie Deal IS THIS A REPEAT EXAM DURING THIS ENCOUNTER: No LOCATION OF EXAM: Lower extremity/right (pain and swelling after trauma) REASON FOR EXAM: Mass, Pain, Redness and Swelling VISUALIZED STRUCTURES: Fascia, Muscle, Skin and Subcutaneous tissue PERTINENT FINDINGS/IMPRESSION: Cellulitis right proximal thigh , Cobblestoning right proximal thigh , Enlarged lymph nodes right groin and Hematoma anterior aspect Right thigh down to knee . Exam Complete (large hematoma above fascia, cellulitis with cobblestoning NO abscess) DIFFERENTIAL DIAGNOSES: abscess, vs cellulitis
--- NOTE | 2025-01-07 11:57 | NUR.NOTE ---
Accessed Pt chart to document the antibiotics given to Pt for the Specimen Report. The Specimen Report was given to Dr Montelongo
--- NOTE | 2025-01-07 12:18 | W.ED.FU ---
Date of service: 01/07/25 Time of Service: 12:18 Follow Up Plan: Attempted to call patient about blood culture results. I left a message requesting patient to call back.
--- NOTE | 2025-01-09 12:28 | NUR.NOTE ---
Access chart to get the blood culture results to give to the provider, preliminary positive. Given to HARSHIL Bennett Nursing Note:
--- NOTE | 2025-01-09 12:38 | W.ED.FU ---
Follow Up Plan: I spoke with Minh, [facility] and he is currently intoxicated, Minh was very alert and oriented and understands that patient has a positive blood culture and the recommendation is to return for admission, she states she will make an attempt to have patient return to the ED as soon as possible today.
== END 2025-01-04 17:39 | disposition home or self-care (01) ==
PROVIDERS: Emergency Provider Physician Assistant; PCP Nurse Practitioner Family
DX: S70.11XA Contusion of right thigh, initial encounter (principal); L03.116 Cellulitis of left lower limb; W55.22XA Struck by cow, initial encounter; Y93.89 Activity, other specified; Y92.73 Farm field as the place of occurrence of the external cause; Z87.891 Personal history of nicotine dependence
CPT/HCPCS: 00123; 36415; 76882; 80053; 87040; 96365; 99284; 85025; J0737

== ENCOUNTER 2025-01-09 15:25 | Emergency (ER) | payer MEDICARE, SELFPAY ==
[2025-01-09 15:32] VITALS: BP 148/77; PULSE 98; RESP 16; TEMP 37.1; O2SAT 98
[2025-01-09 15:41] VITALS: BP 148/77; PULSE 98; RESP 16; TEMP 37.1; O2SAT 98
--- NOTE | 2025-01-09 16:45 | W.ED.GENAD ---
Discharge Plan Disposition Patient Disposition: Home Discharge Details Clinical Impression: Traumatic hematoma of right thigh Primary Care Provider: Jake Santana ED Provider: Pushpa Santana Home Meds and New Rx's Prescriptions: No Action furosemide 40 mg tablet See Rx Instructions .ROUTE .COMPLEX Qty: 180 1RF Dose Instruction: TAKE 2 TABLETS BY MOUTH EVERY MORNING Rx Instructions: TAKE 2 TABLETS BY MOUTH EVERY MORNING clindamycin HCl 300 mg capsule 300 mg PO TID 10 Days Qty: 30 0RF acetaminophen 500 mg tablet 1,000 mg PO TID Qty: 90 3RF Discharge Instructions Additional Instructions: Please call [facility] general surgery first thing in the morning for evaluation in clinic. You still have blood cultures pending. Continue taking antibiotics as prescribed. Practice good wound care. Keep your wound clean and dry. Use a nonstick bandage to help collect any fluid/drainage. Return to emergency care if you develop new fever/chills, general malaise/not feeling well, worsening redness/swelling/pain, or if you are very worried and need to be rechecked again immediately Referrals: [facility] [Provider Group] HPI General Date/Time Provider Initiated Documentation: 01/09/25 15:43. HPI Narrative: Mitchell is a 69-year-old male presenting to the emergency department for evaluation of positive blood cultures and persistent R medial thigh cellulitis. Symptoms began after being kicked by a cow 2 weeks ago; he was seen in the emergency department on 01/04/2025, diagnosed with an infected hematoma which was drained by Dr. Deal and treated with clindamycin. He reports that the infection has not changed despite adherence to antibiotics. The area is oozing serous fluid but without pus or blood. Denies fevers/ chills, general malaise, distal numbness or tingling, change in energy, change in bowel or bladder function. He had a slight fever of just over 100 degrees at his doctor's office a few days ago. He has no diabetes and maintains normal diet and hydration. He previously had a severe infection requiring knee replacement and PICC line insertion. PMH significant for alcohol abuse, GERD, BPH. He is not on anticoagulation. He is a jones, states that he does not want to stay the night for IV antibiotics. Related Data Home Medications ?Medication ?Instructions ?Recorded ?Confirmed acetaminophen 500 mg tablet 1,000 mg (2 x 500 mg) PO TID #90 07/05/24 01/09/25 tabs furosemide 40 mg tablet See Rx Instructions .Route 07/28/24 01/09/25 .COMPLEX #180 tabs clindamycin HCl 300 mg capsule 300 mg PO TID 10 days #30 caps 01/04/25 01/09/25 Previous Rx's ?Medication ?Instructions ?Recorded acetaminophen 500 mg tablet 1,000 mg (2 x 500 mg) PO TID #90 07/05/24 tabs furosemide 40 mg tablet See Rx Instructions .Route 07/28/24 .COMPLEX #180 tabs clindamycin HCl 300 mg capsule 300 mg PO TID 10 days #30 caps 01/04/25 Allergies Allergy/AdvReac Type Severity Reaction Status Date / Time No Known Allergies Allergy Verified 01/04/25 15:37 General Stated Complaint: GenMedical KAROLINA: 3 Exam Const General: cooperative, healthy appearing, comfortable, no acute distress and well developed Nutritional Appearance: average body habitus Resp Effort & Inspection: normal respiratory effort and able to speak in complete sentences Neuro General: patient alert, patient oriented x3, gait normal, tone normal, moves all extremities and no focal motor deficits Motor: muscle tone normal throughout Sensory Exam: no sensory deficits noted Extrem Right lower extremity: full ROM, hip/thigh (Large hematoma with serosanguineous fluid oozing from healing open skin are) and knee Details: normal to inspection Other: Course Vital Signs Vital signs: Vital Signs Temperature 37.1 C 01/09/25 15:32 Pulse 98 H 01/09/25 15:32 Respiratory Rate 16 01/09/25 15:32 Blood Pressure 148/77 H 01/09/25 15:32 Pulse Oximetry 98 01/09/25 15:32 Temperature 37.1 C 01/09/25 15:41 Pulse 98 H 01/09/25 15:41 Respiratory Rate 16 01/09/25 15:41 Blood Pressure 148/77 H 01/09/25 15:41 Blood Pressure Position Sitting 01/09/25 15:41 Pulse Oximetry 98 01/09/25 15:41 Pain Level 0 01/09/25 15:41 Medical Decision Making Initial Assessment: 69-year-old male with cellulitis on the thigh, persistent despite oral antibiotics. Some improvement in bruising but persistent pain. Blood cultures performed on 01/04/25- notable for bacillus. ED Course: - Blood work and imaging to assess infection extent. Redrew blood cultures - IV antibiotics recommended due to severity and risk of leg loss. - Surgical consultation to determine need for intervention. I independently interpreted the following tests: CBC, PT/INR, APTT, lactate, CMP all unremarkable. Inflammatory markers slightly elevated: CRP 11.71, sed rate 45. Final Assessment: Hematoma has not improved despite antibiotics. Concern for hematoma infection; discussed case with Dr Estrada, general surgeon. Reviewed patient presentation, history, and labs. He states that he does not believe this is infected in light of reassuring labs, however does recommend continuing abx rather than discontinuing fdc. Wound care provided by [facility]. Clinical Impression: - Traumatic hematoma Disposition: - Close follow-up with general surgery clinic for wound reevaluation/wound care MDM Components Evaluation: - Number of Differential Diagnoses or Management Options: Cellulitis, healing traumatic hematoma, abscess - Amount and Complexity of Data Reviewed: Blood work, imaging, surgical consultation - Risk of Complication and Morbidity or Mortality: High risk due to potential leg loss if untreated Patient consented to the use of GERTRUDE Imaging Data Radiologic Study: Radiologist's impression: PROCEDURE INFORMATION: Exam: CT Right Lower Extremity With Contrast, Thigh Exam date and time: 01/09/2025 6:51 PM Age: 69 years old Clinical indication: Injury or trauma; Other: Kicked by cow; Blunt trauma; Thigh or upper leg; Right; Injury date: 01/09/25; Injury details: R thigh hematoma after kicked by a cow TECHNIQUE: Imaging protocol: CT of the right lower extremity with intravenous contrast was performed. Exam focused on the thigh. Radiation optimization: All CT scans at this facility use at least one of these dose optimization techniques: automated exposure control; mA and/or kV adjustment per patient size (includes targeted exams where dose is matched to clinical indication); or iterative reconstruction. Contrast material: OMNIPAQUE 350; Contrast volume: 100 ml; Contrast route: INTRAVENOUS (IV); COMPARISON: CR XR KNEE RT 1V 07/17/2024 10:43 AM FINDINGS: Bones/joints: Moderate degenerative changes of the right hip. Osseous alignment appears normal. Chronic deformity of the right pubic bones compatible with old, healed fractures. No acute fractures. Soft tissues: 12.5 cm mixed density subcutaneous mass in the medial right upper thigh compatible with hematoma. No areas of active contrast extravasation identified. Moderate diffuse surrounding soft tissue edema. IMPRESSION: 12.5 cm subcutaneous hematoma in the medial right thigh. No evidence of active hemorrhage at this time. No acute osseous abnormality. Quality:SDOH Health Related Social Needs: No Data to Display PFSH All Active Problems (Updated 01/09/25 @ 20:29 by Pushpa Villalobos) Traumatic hematoma of right thigh (Acute) Cellulitis of right thigh (Acute) Left ankle pain (Acute) Incomplete bladder emptying (Acute) Gastroesophageal reflux disease (Chronic) Alcoholic hepatitis (Acute) Neuropathy (Acute) BPH (benign prostatic hyperplasia) (Chronic) Actinic keratosis (Acute) Alcohol abuse (Chronic) Holosystolic murmur (Acute) Peripheral edema (Acute) Tinnitus (Acute) Deafness in right ear (Acute) Medical History Mononucleosis (02/10/23) History of revision of total replacement of left knee joint Aspiration: 06/08/2024 Epidermoid cyst Surgically removed 20+ years ago Anemia Surgical History S/P TURP 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 Brother No problems noted. Brother No problems noted. Son No problems noted. Son No problems noted. Maternal Grandmother No problems noted. Maternal Grandfather No problems noted. Paternal Grandmother No problems noted. Paternal Grandfather No problems noted. Social History Smoking/Tobacco Use Status: Former Tobacco Use Quit Date: 08/23/03 Smoking risk assessment performed?: Yes Alcohol Intake: current Alcohol Intake frequency: 0-2 drinks per day Alcohol type: beer and hard liquor Drug use: Never Substance use type: does not use Adopted: No Caregiver/Support person: No Household members: spouse Housing: house Number of Children: 2 number of grandchildren: 3 Communication Needs: Hard of Hearing and Corrective Lenses Education Level: high school Details: 10th grade Do you need help understanding health information?: Never current occupation: [employer] Sexually active: No Do you think of yourself as: straight/heterosexual Current gender identity: male What is your relationship status?: How often do you talk on the phone with friends or family?: three or more times per week How often do you get together with friends or relatives?: twice per week How often do you attend shinto or christian services?: decline to answer Do you belong to any clubs or organized social groups?: no Panel score (0-1 are the most socially isolated patients): 2 NHANES result reviewed/action taken: Yes What type of physical activity do you participate in: other Details: Work/labor Duration: > 90 minutes/day Frequency: daily Special em needs: No Seatbelt use: always Helmet use: Yes Helmet use: always 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
[2025-01-09 16:49] VITALS: BP 146/67; PULSE 92; RESP 19; TEMP 36.7; O2SAT 98
[2025-01-09 17:00] VITALS: PULSE 88; RESP 17; O2SAT 99
--- NOTE | 2025-01-09 17:00 | DI.CT_ITS ---
Exam(s) CT LOWER EXTREMITY RT W EXAM: CT LOWER EXTREMITY RT W CLINICAL HISTORY: R thigh hematoma after kicked by a cow. TECHNIQUE: Imaging Protocol: Axial computed tomography images with coronal and sagittal reformatted images were created and reviewed. CONTRAST MATERIAL: Intravenous: Omnipaque 350 Contrast volume:structured data in ml Contrast route:I V - Oral: yes / no COMPARISON: No exams were available for comparison FINDINGS: Bones: The osseous structures and articular surfaces are intact. There is no evidence of fracture or dislocation. Bony alignment is satisfactory. There are old healed fractures of the right superior an d inferior pubic rami. No cellulitic or osteomyelitic changes are identified. Degenerative changes are seen in the right hip characterized by joint space narrowing and osteophytes. No lytic or sclero tic lesions are identified. Soft Tissues: There is fatty atrophy of the long head of the biceps femoris and the semimembranosus muscles. There is a large heterogeneous hematoma in the medial subcutaneous tissues of the thigh mary alice suring 12.1 cm transverse by 5.3 cm AP x 14.8 cm craniocaudad. The visualized portions of the common femoral superficial femoral and deep femoral arteries are patent and unremarkable. No definite area s of active contrast extravasation are noted. No radiopaque foreign bodies are seen. No subcutaneou s gas is identified. The skin surface appears intact. IMPRESSION: 1. 12.1 x 5.3 x 14.8 cm hematoma in the medial soft tissues of the thigh. No evidence of active cont rast extravasation is seen on this examination. 2. No acute fracture or dislocation. 3. Fatty atrophy of the long head of the biceps femoris and the semimembranosus muscles. 4. Old healed right superior and inferior pubic rami fractures. 5. The preliminary [facility] report was reviewed. RADIATION DOSE DELIVERED: 743.17mGy.cm Total DLP DATA REPOSITORY: All CT scans at this facility are submitted to the National Radiology Data Registry (NRDR) Dose Index Registry (DIR) with the [employer] (ACR). RADIATION OPTIMIZATION: All CT scans at this facility use at least one of these dose optimization te chniques: automated exposure control; mA and/or kV adjustment per patient size (includes targeted exa ms where dose is matched to clinical indication); or iterative reconstruction.
[2025-01-09 17:17] LABS: Lactate 0.9 mmol/L (<or=2.0)
[2025-01-09 17:21] LABS: Abs Immature Grans 0.04 10^3/uL (0.0-0.06); Absolute Basophil Count 0.03 10^3/uL (0.0-0.2); Absolute Eosinophil Count 0.08 10^3/uL (0.0-0.7); Absolute Lymphocyte Count 1.03 10^3/uL (1.2-3.4); Absolute Monocyte Count 0.95 10^3/uL (0.1-0.8); Absolute Neutrophil Count 6.82 10^3/uL (1.2-6.7); Basophils % 0.3 %; Eosinophils % 0.9 %; HGB 10.2 g/dL (13.5-17.5); Immature Grans % 0.4 %; Lymphocytes % 11.5 %; MCHC 31.9 % (32.0-36.0); MCV 88 fL (80-95); MPV 9.2 fL (8.0-11.0); Monocytes % 10.6 %; Neutrophils % 76.3 %; Platelet Count 387 10^3/uL (130-400); RBC 3.64 10^6/uL (4.36-5.78); RDW 19.6 % (11.8-14.1); RDW-SD 62.5 fL; WBC 8.95 10^3/uL (4.4-10.8)
--- NOTE | 2025-01-09 17:24 | NUR.NOTE ---
Nursing Note:Pt has infected appearing right leg with serosanguinous drainage. IV started, labs sent.
[2025-01-09 17:39] LABS: Lab Add On Test DONE
[2025-01-09 17:45] LABS: ALT 35 U/L (16-63); AST 41 U/L (15-37); Albumin 3.1 g/dL (3.4-5.0); Alkaline Phosphatase 201 U/L (46-116); Anion Gap 9.4 mmol/L (3-11); BUN 11 mg/dL (7-18); Bilirubin, Total 0.9 mg/dL (0.2-1.0); CO2 28.6 mmol/L (21.0-32.0); Calcium 8.7 mg/dL (8.5-10.1); Chloride 97 mmol/L (98-107); Estimated GFR 81.98 (mL/min/1.73m2); Glucose 106 mg/dL (74-106); Magnesium 1.8 mg/dL (1.8-2.4); Potassium 3.6 mmol/L (3.5-5.1); Sodium 135 mmol/L (136-145); Total Protein 7.9 g/dL (6.4-8.2)
[2025-01-09 18:05] VITALS: BP 132/82; PULSE 90; RESP 20; TEMP 36.9; O2SAT 95
[2025-01-09 18:11] LABS: ETHANOL BLOOD < 3.0 mg/dL (<10)
[2025-01-09 18:13] LABS: PTT Activated 27.5 sec (20.6-30.2); Prothrombin Time 10.3 sec (9.1-11.1)
[2025-01-09] MEDS: Omnipaque 350 MG/ML 100 ML BTL IJ (18:50)
[2025-01-09] MEDS: Normal Saline Flush 10 ML SYR IVP (18:51)
[2025-01-09] MEDS: Normal Saline - Diluent 50 ML VIAL IJ (18:51)
[2025-01-09 19:36] LABS: Lab Add On Test DONE
[2025-01-09 19:38] LABS: ESR 45 mm/hr (0-20)
[2025-01-09 19:48] LABS: C-Reactive Protein 11.71 mg/dL (<or=0.5)
--- NOTE | 2025-01-09 20:14 | DI.[facility]_ITS ---
PROCEDURE INFORMATION: Exam: CT Right Lower Extremity With Contrast, Thigh Exam date and time: 01/09/2025 6:51 PM Age: 69 years old Clinical indication: Injury or trauma; Other: Kicked by cow; Blunt trauma; Thigh or upper leg; Right; Injury date: 01/09/25; Injury details: R thigh hematoma after kicked by a cow TECHNIQUE: Imaging protocol: CT of the right lower extremity with intravenous contrast was performed. Exam focused on the thigh. Radiation optimization: All CT scans at this facility use at least one of these dose optimization techniques: automated exposure control; mA and/or kV adjustment per patient size (includes targeted exams where dose is matched to clinical indication); or iterative reconstruction. Contrast material: OMNIPAQUE 350; Contrast volume: 100 ml; Contrast route: INTRAVENOUS (IV); COMPARISON: CR XR KNEE RT 1V 07/17/2024 10:43 AM FINDINGS: Bones/joints: Moderate degenerative changes of the right hip. Osseous alignment appears normal. Chronic deformity of the right pubic bones compatible with old, healed fractures. No acute fractures. Soft tissues: 12.5 cm mixed density subcutaneous mass in the medial right upper thigh compatible with hematoma. No areas of active contrast extravasation identified. Moderate diffuse surrounding soft tissue edema. IMPRESSION: 12.5 cm subcutaneous hematoma in the medial right thigh. No evidence of active hemorrhage at this time. No acute osseous abnormality. Dictated and Authenticated by: Bud Johnston MD. Orderin Adeel Barrow MD
[2025-01-09 21:00] VITALS: PULSE 89; O2SAT 99
[2025-01-09] MEDS: Clindamycin 300 MG CAP PO (21:00)
== END 2025-01-09 21:01 | disposition home or self-care (01) ==
PROVIDERS: Emergency Provider Nurse Practitioner Family; PCP Nurse Practitioner Family
DX: S70.11XD Contusion of right thigh, subsequent encounter (principal); L03.115 Cellulitis of right lower limb; Z87.891 Personal history of nicotine dependence; W55.22XD Struck by cow, subsequent encounter
CPT/HCPCS: 36415; 80053; 85652; 87040; 99285; 73701; 80320; 83605; 83735; 85025; 85610; 85730; 86140; 99284; J3490

== ENCOUNTER → 2025-01-10 13:20 | Outpatient (BNVA) | payer MEDICARE, SELFPAY | PROVIDERS: PCP Nurse Practitioner Family; Referring Provider Nurse Practitioner Family; Visit Provider Surgery | DX: S70.11XA Contusion of right thigh, initial encounter (principal); X58.XXXA Exposure to other specified factors, initial encounter | CPT/HCPCS: 99215 ==

== ENCOUNTER 2025-01-10 14:41 | Outpatient (REF) | payer MEDICARE, SELFPAY | END 2025-01-10 14:42 | disposition home or self-care (01) | LOC: LBN 14:41 | PROVIDERS: PCP Nurse Practitioner Family; Referring Provider Surgery; Visit Provider Surgery | DX: S70.11XA Contusion of right thigh, initial encounter (principal) | CPT/HCPCS: 87077; 87070; 87075; 87186; 87205 ==

== ENCOUNTER → 2025-01-11 10:18 | Outpatient (BNVA) | payer MEDICARE, SELFPAY | PROVIDERS: PCP Nurse Practitioner Family; Referring Provider Nurse Practitioner Family; Visit Provider Surgery | DX: S70.11XD Contusion of right thigh, subsequent encounter (principal); X58.XXXD Exposure to other specified factors, subsequent encounter | CPT/HCPCS: 97597 ==

== ENCOUNTER → 2025-01-12 13:20 | Outpatient (BNVA) | payer MEDICARE, SELFPAY | PROVIDERS: PCP Nurse Practitioner Family; Referring Provider Nurse Practitioner Family; Visit Provider Surgery | DX: Z51.89 Encounter for other specified aftercare (principal) | CPT/HCPCS: 97597 ==

== ENCOUNTER → 2025-01-16 11:00 | Outpatient (BNVA) | payer MEDICARE, SELFPAY | PROVIDERS: PCP Nurse Practitioner Family; Referring Provider Nurse Practitioner Family; Visit Provider Surgery | DX: S70.11XD Contusion of right thigh, subsequent encounter (principal); X58.XXXA Exposure to other specified factors, initial encounter | CPT/HCPCS: 97597 ==

== ENCOUNTER 2025-01-19 12:44 | Day surgery (SDC) | payer MEDICARE, SELFPAY ==
[2025-01-19 13:23] VITALS: BP 134/85; PULSE 92; RESP 18; TEMP 36.4; O2SAT 97
[2025-01-19] MEDS: Gabapentin 300 MG CAP 600 MG PO (13:35)
[2025-01-19] MEDS: Celecoxib 200 MG CAP PO (13:35)
[2025-01-19] MEDS: Lactated Ringers 1,000 ML 80 ML IV (13:51)
--- NOTE | 2025-01-19 15:22 | W.ANESPRE ---
General Info Date of Service Date Performed: 01/19/25 Height: 6 ft Weight: 101.6 kg Body Mass Index (BMI): 30.4 Surgical Procedure: Operation Date: 01/19/25 14:40 Proposed Procedure Side Surgeon p Washout and Debridement of Thigh Traumatic Wound Right Catarino Harper MD Meds Allergies and Home Medications Allergies Allergy/AdvReac Type Severity Reaction Status Date / Time No Known Allergies Allergy Verified 01/19/25 13:31 Home Medication ?Medication ?Instructions ?Recorded acetaminophen 500 mg tablet 1,000 mg (2 x 500 mg) PO TID #90 07/05/24 tabs furosemide 40 mg tablet See Rx Instructions .Route 07/28/24 .COMPLEX #180 tabs doxycycline hyclate 100 mg 100 mg PO BID #20 tabs 01/16/25 tablet,delayed release Current Visit Medications: Current Medications Generic Name Dose Route Start Last Admin Trade Name Freq PRN Reason Stop Dose Admin Celecoxib 200 mg 01/19/25 06:00 01/19/25 13:35 Celecoxib 200 Mg Cap PO 01/19/25 23:59 200 mg PREOP JOSEPH Administration Gabapentin 600 mg 01/19/25 06:00 01/19/25 13:35 Gabapentin 300 Mg Cap PO 01/19/25 23:59 600 mg PREOP JOSEPH Administration Ringer's Solution 1,000 mls @ 80 mls/hr 01/19/25 06:00 01/19/25 13:51 IV 01/19/25 23:59 80 mls/hr INFUSION JOSEPH Administration IV Miscellaneous Supplies 1 each 01/19/25 06:00 Iv Access IV 01/19/25 23:59 DIRECTED JOSEPH Sodium Chloride 0 ml 01/19/25 06:00 Normal Saline Flush 10 Ml Syr IV 01/19/25 23:59 PRN PRN Sodium Chloride 0 ml 01/19/25 06:00 Normal Saline 10 Ml Vial IJ 01/19/25 23:59 DIRECTED PRN Sterile Water 0 ml 01/19/25 06:00 Water,Injection,Sterile 10 Ml Vial IJ 01/19/25 23:59 DIRECTED PRN PFSH Active Problems Active Problems: Problem Status Onset Code Traumatic hematoma of right thigh Acute S70.11XA Cellulitis of right thigh Acute L03.115 Left ankle pain Acute M25.572 Incomplete bladder emptying Acute R33.9 Gastroesophageal reflux disease Chronic Alcoholic hepatitis Acute K70.10 Neuropathy Acute G62.9 BPH (benign prostatic hyperplasia) Chronic N40.0 Actinic keratosis Acute L57.0 Alcohol abuse Chronic F10.10 Holosystolic murmur Acute R01.1 Peripheral edema Acute R60.0 Tinnitus Acute H93.19 Deafness in right ear Acute H91.91 Medical History Medical History Mononucleosis (02/10/23) History of revision of total replacement of left knee joint Aspiration: 06/08/2024 Epidermoid cyst Surgically removed 20+ years ago Anemia Medical History Comments:: 01/19/25 - pt reports drank 2 beers last night 01/19/25 - mild oedema L & r ankles Surgical History Surgical History S/P TURP History of total right knee replacement (07/05/24) History of arthroscopic knee surgery History of carpal tunnel release History of prostate surgery Replacement of total knee joint (09/19/12) LEFT SIDE Tobacco Smoking/Tobacco Use Status: Former Tobacco Use Alcohol Alcohol Intake: current Alcohol intake frequency: 0-2 drinks per day Alcohol type: beer and hard liquor Substance Use Substance use: Never Substance use type: does not use Vital Signs and Lab Results Vital Signs Most Recent Vital Signs in EMR: Most Recent Vital Signs Temp Pulse Resp BP Pulse Ox 36.4 C L 92 H 18 134/85 97 01/19/25 13:23 01/19/25 13:23 01/19/25 13:23 01/19/25 13:23 01/19/25 13:23 Lab Results Blood Type / Crossmatch: No Data to Display Complete Blood Count: White Blood Count 8.95 10^3/uL (4.4-10.8) 01/09/25 17:08 Red Blood Count 3.64 10^6/uL (4.36-5.78) L 01/09/25 17:08 Hemoglobin 10.2 g/dL (13.5-17.5) L 01/09/25 17:08 Hematocrit 32.0 % (40.0-50.0) L 01/09/25 17:08 Platelet Count 387 10^3/uL (130-400) 01/09/25 17:08 Venous Blood Lactate 0.9 mmol/L (<or=2.0) 01/09/25 17:08 Complete Metabolic Panel: Sodium 135 mmol/L (136-145) L 01/09/25 17:08 Potassium 3.6 mmol/L (3.5-5.1) 01/09/25 17:08 Chloride 97 mmol/L (98-107) L 01/09/25 17:08 Carbon Dioxide 28.6 mmol/L (21.0-32.0) 01/09/25 17:08 BUN 11 mg/dL (7-18) 01/09/25 17:08 Creatinine 1.0 mg/dL (0.70-1.30) 01/09/25 17:08 Est GFR (CKD-EPI 2020) 81.98 (mL/min/1.73m2) 01/09/25 17:08 Magnesium 1.8 mg/dL (1.8-2.4) 01/09/25 17:08 Calcium 8.7 mg/dL (8.5-10.1) 01/09/25 17:08 Albumin 3.1 g/dL (3.4-5.0) L 01/09/25 17:08 Glucose 106 mg/dL (74-106) 01/09/25 17:08 C-Reactive Protein 11.71 mg/dL (<or=0.5) H 01/09/25 17:08 Liver Function Panel: Alanine Aminotransferase (ALT/SGPT) 35 U/L (16-63) 01/09/25 17:08 Aspartate Amino Transf (AST/SGOT) 41 U/L (15-37) H 01/09/25 17:08 Coagulation Panel: INR International Normalized Ratio 1.0 (0.9-1.1) 01/09/25 17:08 Prothrombin Time 10.3 sec (9.1-11.1) 01/09/25 17:08 Activated Partial Thromboplast Time 27.5 sec (20.6-30.2) 01/09/25 17:08 Cardiac Panel: No Data to Display Arterial Blood Gas: No Data to Display Venous Blood Gas: No Data to Display Pancreas Panel: No Data to Display Thyroid Panel: No Data to Display Infectious Disease: No Data to Display Blood Cultures: No Data to Display Toxicology Panel: Ethyl Alcohol Level < 3.0 mg/dL (<10) 01/09/25 17:08 Imaging and Studies Imaging and Studies Study information below may be from another EMR and interpreted by another provider. Please see original notes in EMR for more complete details. Echocardiogram Summary: Indications: New holocystolic murmur and peripheral edema Conclusion Normal left ventricular wall thickness and chamber size. Ejection fraction is 55 to 60%. Wall motion is normal Normal right ventricular size and function Both atria are normal in size Aortic valve is mildly sclerotic and trileaflet without stenosis or regurgitation There is no additional valvular disease 06/26/24 Anesthesia Assessment and Plan Anesthesia History Personal History: No History of Anesthesia Complications Family History: No Family History of Anesthesia Complications Exercise Tolerance Exercise Tolerance: Metabolic Equivalents<4 Pertinent Negatives Pertinent Negatives: No Symptoms of GERD, No Major Cardiovascular Symptoms or Complaints, No Major Pulmonary Symptoms or Complaints and No History of CVA/TIA Cardiac & Pulmonary Exam Cardiac Exam: Normal S1/S2 Heart Sounds Pulmonary Exam: Clear Bilateral Breath Sounds Implantable Cardiac Device Does patient have a Pacemaker or an ICD?: No Airway Exam Known Difficult Airway: No Mallampati Class: 2 Mouth Opening: Normal (> 3cm) Thyromental Distance: Less than 3 cm Neck Range of Motion: Full ROM Neck Circumference: Normal Teeth Condition: Normal Dentition ASA Classification ASA Score: ASA 2 Emergency Case?: No NPO Status NPO Status: NPO Clears >2 hours, Solids >8 hours Anesthesia Plan Resuscitation Status: Full Code Anesthesia Technique: General Anesthesia Airway Planned: Natural Airway Monitors Used: Standard Monitors
[2025-01-19 15:24] VITALS: BMI 30.4
--- NOTE | 2025-01-19 15:57 | W.PREOPHP ---
Assessment and Plan Assessment and plan (1) Traumatic hematoma of right thigh: Status: Acute Assessment and plan: I reviewed the plan with Mitchell for operative debridement and washout of this large right thigh wound. Significant risks include bleeding, and pain. There is also the possibility of needing further operations and debridements. I think is a good understanding of all of this, and he is able to provide informed consent History of Present Illness History of Present Illness Chief Complaint: Chronic traumatic thigh wound Narrative: Mitchell is 69 years old. He sustained a crush type injury to the right thigh when a child kicked him. He developed large hematoma that became secondarily infected. Have been debriding it in the office, but given its size and complexity, requires further operative debridement. PFS All Active Problems Traumatic hematoma of right thigh (Acute) Cellulitis of right thigh (Acute) Left ankle pain (Acute) Incomplete bladder emptying (Acute) Gastroesophageal reflux disease (Chronic) Alcoholic hepatitis (Acute) Neuropathy (Acute) BPH (benign prostatic hyperplasia) (Chronic) Actinic keratosis (Acute) Alcohol abuse (Chronic) Holosystolic murmur (Acute) Peripheral edema (Acute) Tinnitus (Acute) Deafness in right ear (Acute) Medical History Mononucleosis (02/10/23) History of revision of total replacement of left knee joint Aspiration: 06/08/2024 Epidermoid cyst Surgically removed 20+ years ago Anemia Surgical History S/P TURP 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 Brother No problems noted. Brother No problems noted. Son No problems noted. Son No problems noted. Maternal Grandmother No problems noted. Maternal Grandfather No problems noted. Paternal Grandmother No problems noted. Paternal Grandfather No problems noted. Social History Smoking/Tobacco Use Status: Former Tobacco Use Quit Date: 08/23/03 Smoking risk assessment performed?: Yes Alcohol Intake: current Alcohol Intake frequency: 0-2 drinks per day Alcohol type: beer and hard liquor Drug use: Never Substance use type: does not use Adopted: No Caregiver/Support person: No Household members: spouse Housing: house Number of Children: 2 number of grandchildren: 3 Communication Needs: Hard of Hearing and Corrective Lenses Education Level: high school Details: 10th grade Do you need help understanding health information?: Never current occupation: [employer] Sexually active: No Do you think of yourself as: straight/heterosexual Current gender identity: male What is your relationship status?: How often do you talk on the phone with friends or family?: three or more times per week How often do you get together with friends or relatives?: twice per week How often do you attend mandaen or mandaen services?: decline to answer Do you belong to any clubs or organized social groups?: no Panel score (0-1 are the most socially isolated patients): 2 NHANES result reviewed/action taken: Yes What type of physical activity do you participate in: other Details: Work/labor Duration: > 90 minutes/day Frequency: daily Special em needs: No Seatbelt use: always Helmet use: Yes Helmet use: always 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 Firearms in home: Yes Firearms unloaded and locked: Yes Do you feel safe at home: Yes Do you feel safe in your relationship?: Yes Victim of physical abuse: No Victim of emotional abuse: No Victim of sexual abuse: No Would you like helpful sources: No Meds Allergies and Home Medications Allergies Allergy/AdvReac Type Severity Reaction Status Date / Time No Known Allergies Allergy Verified 01/19/25 13:31 Home Medications ?Medication ?Instructions ?Recorded ?Confirmed ?Type acetaminophen 500 mg tablet 1,000 mg (2 x 500 mg) PO TID #90 07/05/24 01/19/25 Rx tabs furosemide 40 mg tablet See Rx Instructions .Route 07/28/24 01/19/25 Rx .COMPLEX #180 tabs doxycycline hyclate 100 mg 100 mg PO BID #20 tabs 01/16/25 01/19/25 Rx tablet,delayed release Exam Const General: cooperative and not in acute distress Neck Neck: normal visual inspection, no lymphadenopathy and supple Resp Effort & Inspection: normal respiratory effort Auscultation: clear to auscultation bilaterally Cardio Jugular venous pressure: no JVD Rate: regular rate Rhythm: regular rhythm Heart Sounds: S1 normal and S2 normal GI Inspection: normal to inspection Palpation: soft, no guarding, no hernias and nontender Percussion: normal to percussion Auscultation: normal bowel sounds Skin Other: Large wound on anterior right thigh with surrounding erythema and tenderness. Neuro General: patient alert, patient awake and patient oriented x3 Psych Appearance: grossly normal Results Last Vital Signs Temp 97.5 F L 01/19/25 13:23 Pulse 92 H 01/19/25 13:23 Resp 18 01/19/25 13:23 BP 134/85 01/19/25 13:23 Pulse Ox 97 01/19/25 13:23
--- NOTE | 2025-01-19 16:52 | ROE_ITS ---
Operative Note Operative Note PRE-OP DIAGNOSIS: Chronic traumatic wound of the right thigh POST-OP DIAGNOSIS: same PROCEDURE: Sharp debridement and washout of traumatic right thigh wound SURGEON: Catarino Harper ANESTHESIA TYPE: General:No Airway Refer to Anesthesia Record ESTIMATED BLOOD LOSS: 10 PATHOLOGY: none sent COMPLICATIONS: None Patient was transported to: same day Patient's condition: stable Indications: Mitchell is a 69-year-old male who sustained a traumatic injury to the right eye. He was kicked by a cow. He developed a massive right thigh hematoma that secondarily became infected with E. coli and Enterococcus. He has been undergoing debridements in the office, and he needs more definitive debridement. Findings: 13 x 10 x 3 cm wound with with fibrinous exudate and minimal retained hematoma Procedure Description: I met with Mitchell in the preoperative area, and we reviewed the plan for surgery. We then moved back to the operating room, and he was assisted onto the OR table. Previous dressings were all removed, and general anesthesia was induced by way of a natural airway. Next, I prepped and draped the right thigh. At the beginning, the wound measured approximately 9 and half centimeters by 12 cm on the skin level. There are some old eschar around the periphery, mostly along the inferior and anterior borders of the wound. There are some granulation tissue starting to form, but is covered in thick fibrinous exudate. There is a small pocket of some retained hematoma on the inferior medial portion of the wound. It was manually debrided clean. Next, I irrigated the wound. Following this, I sharply debrided all of the old eschar from the wound edge back to healthy bleeding tissue. Once this was complete, using the Versajet, I debrided the entire surface of the wound. The Versajet was set to 3, and debridement was taken down all onto bleeding surfaces. Tissue quality was exce llent, and I do not see signs of active uncontrolled infection. Once the surface was all debrided clean, the wound was gently packed with a surgical sponge. There was some old adhesive on the surrounding healthy skin that was all scrubbed clean. Once this was complete, the packing was removed. The wound appeared hemostatic. Final measurements were 13 cm x 10 cm by approximately 3 cm below the skin level, although the base of the wound is quite difficult to measure because of its confirmation. It does undermine slightly anterior and inferior, but there is a thick healthy layer of soft tissue that should provide excellent coverage. It was gently irrigated with saline solution 1 last time, and then packed with a complete roll of Kerlix gauze. ABDs and tape were used to dress the surface, and the patient was allowed awaken from the anesthetic and transferred back to the day surgery unit. Date of Procedure: 01/19/25
[2025-01-19 16:54] VITALS: BP 136/81; PULSE 83; RESP 16; TEMP 35.9; O2SAT 97
--- NOTE | 2025-01-19 16:58 | PDOC.DSDIS_ITS ---
Date of service: 01/19/25 Discharge Plan Disposition Patient Disposition: Home Condition: Good Discharge Details Reason For Visit: Debridement of thigh wound Attending Provider: Catarino Harper Primary Care Provider: Jake Santana Home Meds and New Rx's Prescriptions: Continued doxycycline hyclate 100 mg tablet,delayed release (DR/EC) 100 mg PO BID Qty: 20 0RF Rx Instructions: Take 1 tablet by mouth in the morning, 1 tablet by mouth in the evening furosemide 40 mg tablet See Rx Instructions .ROUTE .COMPLEX Qty: 180 1RF Dose Instruction: TAKE 2 TABLETS BY MOUTH EVERY MORNING Rx Instructions: TAKE 2 TABLETS BY MOUTH EVERY MORNING acetaminophen 500 mg tablet 1,000 mg PO TID Qty: 90 3RF Discharge Instructions Additional Instructions: Mitchell, very relieved that we could get you into the operating room today. I apologize for the wait, and I appreciate your patience through the day. The conduct of the operation went very smoothly. Overall, I am quite relieved with how this wound is doing. As you will see, when it comes time to change the dressings, I was able to get off all of the old eschar surrounding the lower edge of the wound back to healthy tissue. And I used a special instrument called the Versajet to clean all surfaces of the wound. There is no way we could have achieved this in the office, and I do think this will be quite a help in terms of getting the wound to heal. I do think that ultimately will need skin graft to cover all of this. The wound is not yet ready to take a skin graft, and we can talk about that in more detail in the weeks to come. I would like you to leave the surgical dressings in place for the next 24 hours. If the outermost bandages become saturated, you can remove the tape, and the 2 large ABD dressings. I would encourage you to leave the gauze in place and just replace the ABD bandages on top. Tomorrow, I would like you to change all of the dressings and the packing as you have been doing. You can remove the tape and ABD dressings, then pull out all of the packing material. Wash the wound thoroughly in the shower. Try to get as much soapy water into the wound as you can, and rinse all of the soapsuds clean. Once you are out of the shower, gently repack the wound with Kerlix type dressing as you have been doing. 1 thing that you could do just a little bit better is to try to get some more packing underneath of the skin towards the front, and lower part of the hole. Otherwise, you are doing a great job. As I mentioned in the office, you need to keep doing this at least once a day, and if you can do it at other times throughout the course of the day, that will be very helpful. I know this is quite a bit of work, and it takes a lot of time out of your day, but it is making a big difference in terms of getting the wound cleaned out. I will have my office call you on Wednesday to set up another office visit sometime this upcoming week. Again, if anything seems out of the ordinary over the course of the weekend, pl ease call me at [phone], or just go to the emergency department and we can deal with the wound there. Activity:: Activity as Tolerated Diet:: As Tolerated DS: Diagnosis Discharge Diagnosis (1) Traumatic hematoma of right thigh: Status: Acute Asessment and Plan: Outpatient postoperative office follow-up
--- NOTE | 2025-01-19 17:14 | W.ANESPOSTOP ---
Postoperative Evaluation Date, Time and Location Date Performed: 01/19/25 Time Performed: 17:14 Patient Location: Day Surgery Unit Vital Signs Most Recent Imported Vital Signs: Most Recent Vital Signs Temp Pulse Resp BP Pulse Ox 35.9 C L 83 16 136/81 97 01/19/25 16:54 01/19/25 16:54 01/19/25 16:54 01/19/25 16:54 01/19/25 16:54 Pain Score Most Recent Pain Score: Most Recent Pain Score Pain Level 0 01/19/25 16:54 Assessment Mental Status: Awake (Alert & Oriented to Patient Baseline) Airway and Respiratory Function: Patent airway with normal (patient baseline) respiratory exam Cardiovascular Function: Hemodynamically Stable Hydration Status: Adequately Hydrated Nausea & Vomiting: No Nausea or Vomiting Pain: Pt. Denies Any Pain Peripheral Nerve Block: Patient did not receive a nerve block
[2025-01-19 17:44] VITALS: BP 146/83; PULSE 82; RESP 20; TEMP 36.7; O2SAT 98
== END 2025-01-19 18:05 | disposition home or self-care (01) ==
PROVIDERS: PCP Nurse Practitioner Family; Visit Provider Surgery
PROC: (CPT 97597; principal; 2025-01-19 14:30)
DX: S70.11XA Contusion of right thigh, initial encounter (principal)
CPT/HCPCS: 97597; J1100; J1171; J2003; J2250; J2405; J2704

== ENCOUNTER → 2025-01-25 08:27 | Outpatient (BNVA) | payer MEDICARE, SELFPAY | PROVIDERS: PCP Nurse Practitioner Family; Referring Provider Nurse Practitioner Family; Visit Provider Surgery | DX: Z48.89 Encounter for other specified surgical aftercare (principal) | CPT/HCPCS: 99024 ==

== ENCOUNTER → 2025-02-08 08:24 | Outpatient (BNVA) | payer MEDICARE, SELFPAY | PROVIDERS: PCP Nurse Practitioner Family; Referring Provider Nurse Practitioner Family; Visit Provider Surgery | DX: S70.11XD Contusion of right thigh, subsequent encounter (principal); X58.XXXA Exposure to other specified factors, initial encounter | CPT/HCPCS: 97597 ==

== ENCOUNTER → 2025-02-21 08:26 | Outpatient (BNVA) | payer MEDICARE, SELFPAY | PROVIDERS: PCP Nurse Practitioner Family; Referring Provider Nurse Practitioner Family; Visit Provider Physical Therapy Assistant | DX: S70.11XD Contusion of right thigh, subsequent encounter (principal); X58.XXXD Exposure to other specified factors, subsequent encounter | CPT/HCPCS: 99213 ==

== ENCOUNTER → 2025-03-06 08:52 | Outpatient (BNVA) | payer MEDICARE, SELFPAY | PROVIDERS: PCP Nurse Practitioner Family; Referring Provider Nurse Practitioner Family; Visit Provider Physical Therapy Assistant | DX: Z48.89 Encounter for other specified surgical aftercare (principal) | CPT/HCPCS: 99213 ==

== ENCOUNTER → 2025-03-20 11:19 | Outpatient (BNVA) | payer MEDICARE, SELFPAY | PROVIDERS: PCP Nurse Practitioner Family; Referring Provider Nurse Practitioner Family; Visit Provider Physical Therapy Assistant | DX: S81.801D Unspecified open wound, right lower leg, subsequent encounter (principal); X58.XXXD Exposure to other specified factors, subsequent encounter | CPT/HCPCS: 99213 ==

== ENCOUNTER → 2025-04-04 09:49 | Outpatient (BNVA) | payer MEDICARE, SELFPAY | PROVIDERS: PCP Nurse Practitioner Family; Referring Provider Nurse Practitioner Family; Visit Provider Physical Therapy Assistant | DX: S71.101D Unspecified open wound, right thigh, subsequent encounter (principal); X58.XXXD Exposure to other specified factors, subsequent encounter | CPT/HCPCS: 99213 ==

== ENCOUNTER 2025-07-18 09:31 | Outpatient (CLI) | payer MEDICARE, SELFPAY ==
[2025-07-18 09:52] LABS: Hemoglobin A1C 5.0 % (<5.7)
[2025-07-18 09:54] LABS: ALT 61 U/L (10-49); AST 79 U/L (<34); Albumin 4.2 g/dL (3.2-5.0); Alkaline Phosphatase 149 U/L (46-116); Anion Gap 4.8 mmol/L (3-11); BUN 13 mg/dL (9-23); Bilirubin, Total 0.50 mg/dL (0.2-1.2); CO2 25.2 mmol/L (20.0-31.0); Calcium 8.5 mg/dL (8.3-10.6); Chloride 104 mmol/L (98-107); Cholesterol 181 mg/dL (<200); Glucose 101 mg/dL (74-106); HDL Cholesterol 95 mg/dL (>40); Potassium 4.3 mmol/L (3.5-5.1); Sodium 134 mmol/L (136-145); Total Protein 7.4 g/dL (5.7-8.2)
== END 2025-07-18 09:32 | disposition home or self-care (01) ==
LOC: LBO 09:31
PROVIDERS: PCP Nurse Practitioner Family; Visit Provider Nurse Practitioner Family
DX: Z13.6 Encounter for screening for cardiovascular disorders (principal); K70.10 Alcoholic hepatitis without ascites; Z13.1 Encounter for screening for diabetes mellitus
CPT/HCPCS: 36415; 80053; 80061; 83036